=== PATIENT | male | born 1950 | race Caucasian/White ===

== ENCOUNTER → 2016-11-26 | Day surgery (SDC) | payer OTHER ==
[2016-11-16 10:29] VITALS: BMI 32.0
[~2016-11-26] VITALS: Ht 162.6 cm; Wt 86.4 kg
[~2016-11-26] MED LIST: ASPI81TA28 PO; BUME1TAB PO; CLIN300C2 PO; FENTANYL CITRATE INJ 50 MCG/1 ML 2 ML VIAL ONE; FLEC150T PO; LIDOCAINE HCL 2% 2 ML VIAL (20MG/ML) ONE; LOSA1TAB38 PO; METO1TAB71 PO; OXYC-57 PO; PANT40TA PO; POTA10CA28 PO; PROPOFOL IV EMULSION 10 MG/ML 20 ML VIAL IV ONE; RIVA1TAB4 PO; RXC5 PO; SIMV20TA5 PO
[2016-11-26 13:18] VITALS: Ht 162.6 cm; Wt 86.4 kg
[2016-11-26 13:23] VITALS: TEMP 36.7
--- NOTE | 2016-11-26 13:28 | Endo History and Physical ---
History & Physical Date of Service: Nov 26, 2016. Chief Complaint: Anemia Referring Physician: Dr. Amezcua History of Present Illness For EGD Past Medical History Atrial Fibrillation, Arthritis, High Cholesterol, CHF, Hypertension, Valve Replacement Past Surgical History Hx Cardiac Surgery: Yes (AORTIC VALVE REPLACEMENT) Hx Internal Defibrillator: No Hx Pacemaker: No Hx Abdominal Surgery: No Hx of Implantable Prosthesis: No Hx Post-Op Nausea and Vomiting: No Hx Cancer Surgery: No Hx Thoracic Surgery: No Hx Orthopedic: Yes (LUMBAR FUSION&REVISION L5-S1, LEFT ELBOW SURGERY, LEFT INDEX FINGER SURGERY) Hx Urinary Tract Surgery: Yes (CYSTOSCOPY ) Family History Colon CA Social History Smoking Status: Never Smoker Hx Substance Use: No Hx Alcohol Use: No Allergies Coded Allergies: Amlodipine (Verified Allergy, Unknown, Unknown reaction, 11/26/16) Per PCP records Penicillins (Verified Allergy, Unknown, RASH, 11/16/16) Also had rash reaction with Amoxicillin Lisinopril (Verified Adverse Reaction, Unknown, COUGH, 11/16/16) Current Medications Reported Home Medications Medications Dose Route/Sig Max Daily Dose Days Date Category Dose Instructions Micro-K Ext Rel (Potassium Chloride) 10 Meq Capcr 10 Meq PO DAILY PRN 11/16/16 Reported Bumex (Bumetanide) 1 Mg Tab 1 Mg PO DAILY PRN 11/16/16 Reported Protonix (Pantoprazole Sodium) 40 Mg Tab 40 Mg PO QAM 11/16/16 Reported Flecainide Acetate 150 Mg Tab 1 Tab PO BID 11/16/16 Reported Oxycodone HCl 5 Mg Tab 5-10 Mg PO Q4H PRN 30 02/17/16 Rx Percocet 5MG/325MG (Oxycodone/Acetaminophen) Tab 1-2 Tablets PO Q4H PRN 12/14/15 Reported PAIN Xarelto (Rivaroxaban) 20 Mg Tab 20 Mg PO QAM 12/14/15 Reported Zocor (Simvastatin) 20 Mg Tab 20 Mg PO QPM 12/14/15 Reported Cleocin (Clindamycin Hcl) 300 Mg Cap 600 Mg PO DIRECTED 02/23/14 Reported Toprol-Xl (Metoprolol Succinate) 200 Mg Tabcr 100 Mg PO QAM 02/23/14 Reported Aspirin Ec (Aspirin) 81 Mg Tab 81 Mg PO QAM 02/23/14 Reported Cozaar (Losartan Potassium) 100 Mg Tab 100 Mg PO QAM 01/10/14 Reported Vital Signs Weight (Kilograms): 86.36 Height (Feet): 5 Height (Inches): 4 Date Time Temp Pulse Resp B/P Pulse Ox O2 Delivery O2 Flow Rate FiO2 11/26/16 13:23 36.7 55 20 172/98 100 Room Air Physical Exam General Appearance: WD/WN Respiratory/Chest: Respiratory effort: no dyspnea Cardiovascular: Heart Auscultation: RRR Abdomen: Inspection & Palpation: soft Assessment and Plan Anemia for EGD
--- NOTE | 2016-11-26 13:43 | Discharge Instructions ---
Endoscopy Patient Instructions Date / Procedure(s) Performed Nov 26, 2016. EGD Allergy Information Coded Allergies: Amlodipine (Verified Allergy, Unknown, Unknown reaction, 11/26/16) Per PCP records Penicillins (Verified Allergy, Unknown, RASH, 11/16/16) Also had rash reaction with Amoxicillin Lisinopril (Verified Adverse Reaction, Unknown, COUGH, 11/16/16) Discharge Date / Findings Nov 26, 2016. Haley esophagitis, antral gastritis. Duodenal bx done Medication Instructions Stopped Medication(s): xarelto for 1 week Restart Stopped Medication(s): resume meds Begin Diflucan 100 mg a day for 10 days Provider Instructions Activity Restrictions - No exercising or heavy lifting for 24 hours. - Do not drink alcohol the day of the procedure. - Do not drive a car or operate machinery until the day after the procedure. - Do not make any important decisions or sign important papers in 24 hours after the procedure. Following Day: - Return to full activity which may include returning to work/school. Diet Start your diet with liquids and light foods (jello, soup, juice, toast). Then eat your usual diet if not nauseated. Treatment For Common After Affects For mild abdominal pain, bloating, or excessive gas: - Rest - Eat lightly - Lie on right side Follow-Up Information Follow-up with Dr. Amezcua as scheduled Anesthesia Information What You Should Know You have had a procedure that required some medicine to reduce anxiety and discomfort. This treatment is called moderate sedation. After receiving the treatment, you may be sleepy, but you will be able to breathe on your own. The effects of the treatment may last for several hours. Follow these instructions along with Activity/Diet recommendations noted above: * Do NOT do anything where dizziness or clumsiness would be dangerous. * Rest quietly at home today, then you can be up and about tomorrow. * Have a responsible person stay with you the rest of today. * You may have had an I.V. today. If so, you may take the dressing off later today. Recommendations Call your doctor if: * Trouble breathing * Continuous vomiting for more than 24 hours * Temperature above 101 degrees * Severe abdominal pain or bloating * Pain not relieved by pain medicine ordered * There is increased drainage or redness from any incision * A large amount of rectal bleeding greater than 2-3 tablespoons. (If you had a polyp/s removed or have hemorrhoids, a small amount of blood - from the rectum is to be expected.) * You have any unanswered questions or concerns. IN THE EVENT OF A SERIOUS EMERGENCY, GO TO THE NEAREST EMERGENCY ROOM Your discharge instructions were prepared by provider Amador Tang. Patient Instructions Signature Page Marciano Wisdom Patient (or Guardian) Signature/Date: I have read and understand the instructions given to me by my caregivers. Caregiver/RN/Doctor Signature/Date: The above-named patient and/or guardian has received patient instructions on this date. + Original Patient Signature Page (only) stays with chart. Please make copy for patient.
--- NOTE | 2016-11-26 13:50 | GI REPORT ---
Procedure Date: 11/26/2016 1:30 PM Procedure: Upper GI endoscopy Indications: Iron deficiency anemia Medicines: Fentanyl 50 micrograms IV, Propofol total dose 120 mg IV, Lidocaine 40 mg IV Complications: No immediate complications. Estimated Blood Loss: Estimated blood loss was minimal. Procedure: Pre-Anesthesia Assessment: - Prior to the procedure, a History and Physical was performed, and patient medications, allergies and sensitivities were reviewed. The patient's tolerance of previous anesthesia was reviewed. - The risks and benefits of the procedure and the sedation options and risks were discussed with the patient. All questions were answered and informed consent was obtained. After obtaining informed consent, the endoscope was passed under direct vision. Throughout the procedure, the patient's blood pressure, pulse, and oxygen saturations were monitored continuously. The scope was introduced through the mouth, and advanced to the second part of duodenum. The upper GI endoscopy was accomplished without difficulty. The patient tolerated the procedure well. The upper GI endoscopy was accomplished without difficulty. The patient tolerated the procedure well. Findings: Localized candidiasis was found in the lower third of the esophagus. Cells for cytology were obtained by brushing. Estimated blood loss: none. Patchy mild inflammation characterized by erythema and granularity was found in the prepyloric region of the stomach. The 2nd part of the duodenum was normal. Biopsies were taken with a cold forceps for histology. Impression: - Monilial esophagitis. Cells for cytology obtained. - Gastritis. - Normal 2nd part of the duodenum. Biopsied. Recommendation: - Discharge patient to home (ambulatory). - Diflucan (fluconazole) 100 mg PO daily for 10 days. - Await pathology results. - Return to primary care physician PRN. Amador Tang M.D. Amador Tang MD 11/26/2016 1:50:50 PM This report has been signed electronically. Note Initiated On: 11/26/2016 1:30 PM I attest to the content of the Intraoperative Record and orders documented therein, exceptions below
--- NOTE | 2016-11-26 13:56 | Anesthesiology Progress Note ---
Anesthesia Post Op Note Date & Time Nov 26, 2016 at 13:56 Vital Signs Pain Intensity: 0 Vital Signs Past 12 Hours Date Time Temp Pulse Resp B/P Pulse Ox O2 Delivery O2 Flow Rate FiO2 11/26/16 13:23 36.7 55 20 172/98 100 Room Air Notes Mental Status: alert / awake / arousable, participated in evaluation Pt Amnestic to Procedure: Yes Nausea / Vomiting: adequately controlled Pain: adequately controlled Airway Patency, RR, SpO2: stable & adequate BP & HR: stable & adequate Hydration State: stable & adequate Anesthetic Complications: no major complications apparent
[2016-11-26 14:20] VITALS: BP 114/78; PULSE 50; O2SAT 98
== END | disposition home or self-care (01) ==
LOC: C.GI 12:55
PROVIDERS: ATTEND Internal Medicine Gastroenterology
DX: B37.81 Candidal esophagitis (principal); D50.9 Iron deficiency anemia, unspecified; K29.70 Gastritis, unspecified, without bleeding; I10 Essential (primary) hypertension; I48.91 Unspecified atrial fibrillation; M19.90 Unspecified osteoarthritis, unspecified site; E78.00 Pure hypercholesterolemia, unspecified; I50.9 Heart failure, unspecified; Z95.2 Presence of prosthetic heart valve; Z79.01 Long term (current) use of anticoagulants; Z80.0 Family history of malignant neoplasm of digestive organs

== ENCOUNTER → 2017-01-04 | Outpatient (CLI) | payer OTHER ==
[~2017-01-04] MED LIST changes: -FENTANYL CITRATE INJ 50 MCG/1 ML 2 ML VIAL ONE; -LIDOCAINE HCL 2% 2 ML VIAL (20MG/ML) ONE; -PROPOFOL IV EMULSION 10 MG/ML 20 ML VIAL IV ONE
[2017-01-04 12:39] LABS: BASO % 0.4 %; BASO ABS # 0.02 K/uL (0-0.2); COMPLETE YES; EOS % 2.8 %; HEMATOCRIT 43.7 % (42-52); IG% 0.2 %; LYMPH ABS # 0.87 K/uL (1.2-3.4); MEAN CELL VOLUME 87.8 fL (80-100); MEAN CORPUSCULAR HEMOGLOBIN 28.7 pg (25-34); MEAN CORPUSCULAR HGB CONC 32.7 g/dl (32-36); MEAN PLATELET VOLUME 11.1 fL (7.4-10.4); MONO % 12.8 %; NEUT % 67.8 %; PLATELET COUNT 189 K/uL (130-400); RED BLOOD COUNT 4.98 M/uL (4.7-6.1); WHITE BLOOD COUNT 5.45 K/uL (4.8-10.8)
[2017-01-04 12:46] LABS: BLOOD UREA NITROGEN 16 mg/dl (7-18); BUN/CREATININE RATIO 13.7 (10-20); CALCIUM 9.5 mg/dl (8.5-10.1); CARBON DIOXIDE 31 mmol/L (21-32); CHLORIDE 105 mmol/L (98-107); GLUCOSE 91 mg/dl (70-99); SODIUM 140 mmol/L (136-145)
[2017-01-04 12:51] LABS: PHOSPHORUS 2.9 mg/dl (2.5-4.9); PROSTATE SPECIFIC ANTIGEN 0.969 ng/ml (0.000-4.000)
== END | disposition home or self-care (01) ==
LOC: C.LABBFT 09:30
PROVIDERS: ATTEND Internal Medicine
DX: N40.0 Benign prostatic hyperplasia without lower urinary tract symptoms (principal); D64.9 Anemia, unspecified; N28.9 Disorder of kidney and ureter, unspecified

== ENCOUNTER → 2017-04-03 | Outpatient (CLI) | payer OTHER ==
[~2017-04-03] MED LIST changes: +METO-649 PO; -METO1TAB71 PO
== END | disposition home or self-care (01) ==
LOC: C.LABBFT 07:55
PROVIDERS: ATTEND Internal Medicine Cardiovascular Disease
DX: E78.00 Pure hypercholesterolemia, unspecified (principal); I10 Essential (primary) hypertension

== ENCOUNTER → 2017-07-26 | Outpatient (CLI) | payer OTHER ==
[~2017-07-26] MED LIST changes: -METO-649 PO; +METO1TAB71 PO
[2017-07-26 13:26] LABS: ALT/SGPT 41 U/L (12-78); BLOOD UREA NITROGEN 17 mg/dl (7-18); BUN/CREATININE RATIO 14.4 (10-20); CALCIUM 9.5 mg/dl (8.5-10.1); CARBON DIOXIDE 28 mmol/L (21-32); CHLORIDE 106 mmol/L (98-107); CHOLESTEROL 147 mg/dl (0-200); GLUCOSE 88 mg/dl (70-99); POTASSIUM 4.2 mmol/L (3.5-5.1); SODIUM 139 mmol/L (136-145)
[2017-07-26 13:30] LABS: ALB/GLOB RATIO 1.3 (0.9-2); ALKALINE PHOSPHATASE 75 U/L (45-117); AST/SGOT 26 U/L (15-37); CHOLESTEROL/HDL RATIO 2.1; HDL CHOLESTEROL 71 mg/dl; LDL CHOLESTEROL CALCULATED 62 mg/dl; TRIGLYCERIDES 72 mg/dl (0-150); VERY LOW DENSITY LIPOPROT CALC 14 mg/dl
== END | disposition home or self-care (01) ==
LOC: C.LABBFT 08:39
PROVIDERS: ATTEND Internal Medicine
DX: I48.0 Paroxysmal atrial fibrillation (principal); E78.00 Pure hypercholesterolemia, unspecified

== ENCOUNTER → 2017-08-08 | Outpatient (CLI) | payer OTHER ==
--- NOTE | 2017-08-08 11:52 | DIAGNOSTIC IMAGING REPORT ---
R HIP UNILATERAL 2 VIEWS CLINICAL HISTORY: Right hip and back pain COMPARISON: None. DISCUSSION: No fractures or subluxations are visualized. There are no erosive or destructive changes. Postsurgical changes are present within the lower lumbar spine. The joint space of the right hip appears well-preserved for age. IMPRESSION: Normal right hip for age. Electronically signed by: Jeff Antonio M.D. 08/08/2017 11:50 AM Dictated Date/Time: 08/08/2017 11:49 AM
--- NOTE | 2017-08-08 12:12 | DIAGNOSTIC IMAGING REPORT ---
LUMBAR SPINE 7 VIEWS with flexion and extension HISTORY: R HIP PAIN, LUMBAGO COMPARISON: Lumbar spine CT the 01/13/2008. FINDINGS: There is no fracture. Stable 6 mm of anterolisthesis of L5 on S1. Posterior decompression and fusion at L4-5 with pedicle screws and rods. The hardware appears intact. There are disc spacers at these levels. Mild disc space narrowing at L3-L4 and L2-L3. Alignment remains intact throughout flexion and extension. Small endplate osteophytes within the lumbar spine. IMPRESSION: 1. No fractures within the lumbar spine. 2. Posterior decompression and fusion at L4-5 with pedicle screws and rods. The hardware appears intact. 3. Stable grade I anterolisthesis of L5 on S1. 4. Mild disc space narrowing at L2-L3 and L3-L4 which has progressed. 5. Alignment remains intact throughout flexion and extension. Electronically signed by: Singh Jennings M.D. 08/08/2017 12:10 PM Dictated Date/Time: 08/08/2017 12:07 PM
== END | disposition home or self-care (01) ==
LOC: C.RADBC 10:49
PROVIDERS: ATTEND Physician Assistant
DX: M25.551 Pain in right hip (principal); Z98.1 Arthrodesis status; M43.17 Spondylolisthesis, lumbosacral region; M51.36 Other intervertebral disc degeneration, lumbar region

== ENCOUNTER → 2017-09-23 | Outpatient (CLI) | payer OTHER ==
[~2017-09-23] MED LIST changes: +METO-649 PO; -METO1TAB71 PO; -RXC5 PO
--- NOTE | 2017-09-23 10:46 | DIAGNOSTIC IMAGING REPORT ---
KUB CLINICAL HISTORY: Nephrolithiasis. COMPARISON STUDY: KUB September 20, [address] of the abdomen and pelvis September 13, 2015 PA FINDINGS: Incidental note is made of postoperative findings within the spine. Pelvic calcifications are unchanged and likely reflect phleboliths and vascular calcifications. Numerous bilateral renal calculi are noted, including an 8 mm calculus within the upper pole of the left kidney and a 6 mm left renal calculus. Slight increase in calculus burden is noted since exam of September 20, 2016. The bowel gas pattern is normal. IMPRESSION: 1. Bilateral nephrolithiasis, slightly increased since exam of September 20, 2016. 2. No ureteral calculi identified. Electronically signed by: Ranjan Means M.D. 09/23/2017 10:45 AM Dictated Date/Time: 09/23/2017 10:44 AM
[2017-09-23 11:38] LABS: CHOLESTEROL/HDL RATIO 1.9; PROSTATE SPECIFIC ANTIGEN 0.951 ng/ml (0.000-4.000)
== END | disposition home or self-care (01) ==
LOC: C.RAD 09:26
PROVIDERS: ATTEND Urology
DX: N20.0 Calculus of kidney (principal); N40.0 Benign prostatic hyperplasia without lower urinary tract symptoms; Z12.5 Encounter for screening for malignant neoplasm of prostate; E78.00 Pure hypercholesterolemia, unspecified

== ENCOUNTER → 2017-10-28 | Outpatient (CLI) | payer OTHER ==
[2017-10-28 12:24] LABS: BASO % 0.5 %; BASO ABS # 0.03 K/uL (0-0.2); EOS ABS # 0.28 K/uL (0-0.5); HEMATOCRIT 44.9 % (42-52); HEMOGLOBIN 14.7 g/dL (14.0-18.0); IG# 0.02 K/uL (0.00-0.02); LYMPH % 23.1 %; MEAN CELL VOLUME 91.3 fL (80-100); MEAN CORPUSCULAR HEMOGLOBIN 29.9 pg (25-34); MEAN CORPUSCULAR HGB CONC 32.7 g/dl (32-36); MEAN PLATELET VOLUME 11.2 fL (7.4-10.4); MONO % 9.9 %; MONO ABS # 0.56 K/uL (0.11-0.59); NEUT % 61.1 %; NEUT ABS # 3.44 K/uL (1.4-6.5); PLATELET COUNT 184 K/uL (130-400); RED CELL DISTRIBUTION WIDTH CV 13.5 % (11.5-14.5); RED CELL DISTRIBUTION WIDTH SD 44.5 fL (36.4-46.3); WHITE BLOOD COUNT 5.63 K/uL (4.8-10.8)
== END | disposition home or self-care (01) ==
LOC: C.LABBFT 09:20
PROVIDERS: ATTEND Physician Assistant Medical
DX: D64.9 Anemia, unspecified (principal)

== ENCOUNTER → 2018-01-22 | Outpatient (CLI) | payer OTHER ==
[~2018-01-22] MED LIST changes: -METO-649 PO; +METO100T14 PO; +METO200T32 PO; +METO50TA16 PO
== END | disposition home or self-care (01) ==
LOC: C.LABBFT 07:18
PROVIDERS: ATTEND Internal Medicine
DX: N52.9 Male erectile dysfunction, unspecified (principal)

== ENCOUNTER → 2018-01-28 | Outpatient (CLI) | payer OTHER | END | disposition home or self-care (01) | LOC: C.LABBFT 11:35 | PROVIDERS: ATTEND Internal Medicine | DX: N52.9 Male erectile dysfunction, unspecified (principal) ==

== ENCOUNTER 2022-10-23 10:57 | Inpatient (IN) ==
[2022-10-23] MEDS ORDERED: SODIUM CHLORIDE 0.9% 1000ML 1,000 ML IV SCH (11:30)
[2022-10-23 11:45] LABS: Basophils # (auto) 0.02 K/uL (0-0.2); Basophils % (auto) 0.2 %; Eosinophils # (auto) 0.11 K/uL (0-0.50); Eosinophils % (auto) 0.9 %; Hematocrit (blood only) 23.9 % (40.1-51.0); Hemoglobin 7.5 g/dl (14.0-18.0); Immature Granulocytes # (auto) 0.06 K/uL (0.00-0.02); Immature Granulocytes % (auto) 0.5 %; Lymphocytes # (auto) 0.65 K/uL (1.2-3.4); Lymphocytes % (auto) 5.3 %; Mean Corpuscular Hemoglobin 26.7 pg (25.0-34.0); Mean Corpuscular Hgb Conc 31.4 g/dL (32.0-36.0); Mean Corpuscular Volume 85.1 fL (80.0-100.0); Mean Platelet Volume 9.1 fL (9.4-12.4); Monocytes # (auto) 1.11 K/uL (0.24-0.82); Monocytes % (auto) 9.1 %; Neutrophils # (auto) 10.25 K/uL (1.4-6.5); Nucleated RBC # (auto) 0.02 K/uL (0-0); Nucleated RBC % (auto) 0.2 %; Platelet Count 354 K/uL (130-400); RDW Coefficient of Variation 16.4 % (11.5-14.5); RDW Standard Deviation 50.7 fL (36.4-46.3); Red Blood Count 2.81 M/uL (4.63-6.08)
[2022-10-23] MEDS ORDERED: SODIUM CHLORIDE 0.9% 250 ML IV PRN (11:51)
--- NOTE | 2022-10-23 12:04 | XRay Report ---
XR chest 1V portable HISTORY: 72 years-old Male weakness acute weakness COMPARISON: Chest radiograph 01/06/2019 TECHNIQUE: AP view of the chest FINDINGS: Cardiac silhouette is enlarged. Prior median sternotomy with cardiac valvular prosthesis. No pneumoth orax, large pleural effusion or lobar airspace consolidation. Pulmonary vascular congestion. Chronic right-sided rib fracture deformities. Degenerative changes of the shoulders and spine. IMPRESSION: Cardiomegaly with pulmonary vascular congestion. ACT 112: Negative or not required by law. The above report was generated using voice recognition software. It may contain grammatical, syntax o r spelling errors. Electronically signed by: Gerber Corrales M.D. 10/23/2022 12:02 PM
[2022-10-23 12:15] LABS: Troponin I High Sensitivity 28.1 pg/ml (0-20)
[2022-10-23 12:23] LABS: Albumin Globulin Ratio 1.1 (0.9-2); Albumin Level 3.2 gm/dl (3.4-5.0); BUN Creatinine Ratio 13.2 (10-20); Bilirubin,Total 2.7 mg/dl (0.2-1.0); Calcium 9.4 mg/dl (8.5-10.1); Creatinine Clr Calc Pharmacy 68.3 ml/min; Est GFR (African American) 95.9 ml/min; Est GFR (Non-African American) 82.7 ml/min; Globulin 2.8 gm/dl (2.5-4.0)
[2022-10-23 12:28] LABS: Hypochromasia Present; Polychromasia 1+
--- NOTE | 2022-10-23 12:44 | CT Scan Report ---
CT SCAN OF THE BRAIN WITHOUT IV CONTRAST CLINICAL HISTORY: Falls. COMPARISON STUDY: No priors. TECHNIQUE: Unenhanced axial CT scan of the brain is performed from the vertex to the skull base. A do se lowering technique was utilized adhering to the principles of ALARA. CT DOSE: 788.63 mGycm FINDINGS: Brain parenchyma: Left frontal encephalomalacia is unchanged and consistent with a remote insult. The re is age-related involutional change noting moderate subcortical and periventricular microangiopathi c disease. There is no hemorrhage, mass effect, or evidence of acute territorial ischemia by CT crite so. Henry-white matter differentiation is preserved. No extra-axial fluid collection is seen. Ventricles, sulci, cisterns: Prominent secondary to involutional change. Intracranial vasculature: There is atherosclerotic calcification of the cavernous carotid and vertebr al arteries. Calvarium: The skeletal structures are osteopenic. No depressed calvarial fracture is seen. Sinuses and mastoids: There is trace mucosal thickening within the right maxillary antrum. The remain ing paranasal sinuses are clear. The mastoid air cells are well pneumatized. Orbits: The bony orbits are grossly intact. IMPRESSION: Chronic changes as above with no hemorrhage, mass effect, or evidence of acute territoria l ischemia by CT criteria. ACT 112: Negative or not required by law. Electronically signed by: Ronnie Eisenberg M.D. 10/23/2022 12:42 PM
--- NOTE | 2022-10-23 12:51 | CT Scan Report ---
CT SCAN OF THE CERVICAL SPINE CLINICAL HISTORY: Trauma. Fall. COMPARISON STUDY: No priors. TECHNIQUE: CT scan of the cervical spine is performed from the skull base to the upper thoracic spine . Images are reviewed in the axial, sagittal, and coronal planes. IV contrast was not administered fo r this examination. A dose lowering technique was utilized adhering to the principles of ALARA. CT DOSE: 470.38 mGycm FINDINGS: Skeletal structures: The skeletal structures are osteopenic. There is no evidence of fracture or subl uxation involving the cervical spine. Vertebral body height is maintained. There is minimal anteroli sthesis at C5-C6. Alignment is otherwise preserved. There is straightening of the cervical lordosis. The odontoid process and lateral masses are intact. The atlantoaxial articulation is preserved noting productive degenerative changes. The spinous processes appear intact. There is mild multilevel facet arthropathy. Intervertebral discs: There is only mild degenerative disc space narrowing. Central canal: Grossly patent. Soft tissues: The prevertebral and paraspinous soft tissues are within normal limits. Calvarium: The visualized calvarium at the skull base appears intact. Brain parenchyma: Partially visualized brain parenchyma at the skull base is within normal limits. Sinuses and mastoids: There is trace mucosal thickening within the maxillary antra and the right sphe noid sinus. The mastoid air cells are well pneumatized. Lung apices: Clear as visualized. IMPRESSION: There is no evidence of fracture or subluxation involving cervical spine. ACT 112: Negative or not required by law. Electronically signed by: Ronnie Eisenberg M.D. 10/23/2022 12:50 PM
--- NOTE | 2022-10-23 12:52 | CT Scan Report ---
CT facial bones wo con CLINICAL HISTORY: trauma TECHNIQUE: Multidetector row helical CT of the maxillofacial bones was performed without administrati on of intravenous contrast, and processed with bone and soft tissue algorithms. Coronal and sagittal reformations were obtained. Automated dose lowering techniques and/or adjustment according to patient size were utilized for this exam. CT DOSE: 542.52 mGycm Comparison: None available at the time of this dictation. FINDINGS: Nasal bones are normal. The mandible is intact. The temporomandibular joints are anatomically aligned . Pterygoid plates are intact. Zygomatic arches are intact. The globes are normal and symmetric, without proptosis, obvious disruption or lens dislocation. Ther e is no orbital radiopaque foreign body. The orbital joshua are intact. The retrobulbar fat is without evidence of disruption. Extraocular muscles are normal and symmetric. Optic nerve sheath complexes are normal in course and caliber. Sinus thickening is seen in the maxillary sinus. IMPRESSION: No facial fracture is seen. ACT 112: Negative or not required by law. Electronically signed by: Wilton Esparza M.D. 10/23/2022 12:50 PM
--- NOTE | 2022-10-23 13:16 | Electrocardiogram Report ---
Test Reason : Blood Pressure : / mmHG Vent. Rate : 081 BPM Atrial Rate : 072 BPM P-R Int : 000 ms QRS Dur : 112 ms QT Int : 416 ms P-R-T Axes : 000 079 144 degrees QTc Int : 483 ms Accelerated Junctional rhythm Possible Inferior infarct (cited on or before 06-JAN-2019) Marked ST abnormality, possible lateral subendocardial injury Abnormal ECG When compared with ECG of 06-JAN-2019 10:23, Junctional rhythm has replaced Sinus rhythm Vent. rate has increased BY [address] more depressed Lateral leads T wave inversion now evident in Anterolateral leads Confirmed by Festus Matthew ([id number]) on 10/23/2022 1:15:49 PM Referred By: [facility] Confirmed By:Festus Matthew
[2022-10-23 14:03] LABS: Appearance Urine Clear (Clear); Bacteria Urine Automated 1+ (Negative); Blood Urine Negative (Negative); Color Urine Orange; Epithelial Cell Urine Auto 20-30 /lpf (0-5); Glucose Urine UA 2+ (Negative); Ketones Urine Trace (Negative); Leukocyte Esterase Urine Trace (Negative); Nitrite Urine Positive (Negative); Protein Urine 1+ (Negative); Specific Gravity Urine 1.022 (1.000-1.030); Urobilinogen Urine Positive (Negative)
[2022-10-23 14:05] LABS: Bilirubin Urine 1+ (Negative)
--- NOTE | 2022-10-23 14:27 | History & Physical Report ---
Date of Service October 23, 2022 Assessment & Plan (1) GIB (gastrointestinal bleeding): Plan: - Patient without any obvious blood in stool or black, tarry stools however was heme positive in ED. - Hgb 13 in May, now 7.5. - Does have a history of iron deficiency anemia, previously seen by heme/onc. - Blood products ordered for transfusion, IV diuretic to be given with each unit as patient is already showing evidence of pulmonary congestion on CXR. - Iron studies added onto labs. - May be either an upper or lower GI bleed with his history of cirrhosis and a possible bleed seen on EGD in 2019 presumed to be an AVM, also has had several colon polyps removed, family history of colon cancer in his mother. - Given his diagnosis of cirrhosis, he had had a recent EGD and colonoscopy last month, EGD unremarkable, colonoscopy significant for 3 noncancerous polyps removed. Did initially have some patient procedure bleeding over the first few days, likely due to hemorrhoids and Xarelto use, however this had subsided. - Last Xarelto dose this AM. - Start patient on PPI drip. - We will consult GI, appreciate their recommendations. - 1g TXA ordered. (2) Urinary tract infection: Plan: - WBC 12, UA with 1+ bacteria, nitrites, 10-30 WBCs. - Not complaining of urinary symptoms but suspect his confusion/hallucinations may be his presenting symptoms. (3) Encephalopathy: Plan: - Suspect may be a combination of UTI and medication induced encephalopathy, as patient notes a correlation of visual, auditory hallucinations with the increase of bupropion from 150 mg to 300 mg. - His AST and T bili are mildly elevated from baseline, however ammonia is 27, negative asterixis, do not think this is hepatic encephalopathy. - Head CT without hemorrhage, territorial infarct, or mass/midline shift. - We will hold his bupropion, blood transfusion as above, Rocephin for UTI, monitor for improvement. Currently, patient is AAO x3, able to verbalize that he knows his hallucinations are not real. (4) Lumbar compression fracture: Plan: - Several falls over the past few days. - Lumbar XR: There is an acute appearing compression deformity of the L1 vertebral body, new from prior exam in 2018. No radiographic evidence of significant retropulsion or involvement of posterior elements, however this is better evaluated by CT. - Imaging otherwise negative for acute fractures or other injury. - Lidocaine patches, calcitonin spray, home [place] continued for pain relief. - PT/OT to evaluate and treat. (5) Cirrhosis: Plan: - [place] to be alcohol related, patient has not drank in many years. - Has close follow-up with GI, recently had EGD ditch did not reveal any varices, colonoscopy with several polyps removed. - Due for AFP, liver U/S December. - Tylenol 2 g maximum per day. - On admission: T bili 2.7, AST 43, ammonia 27. Creatinine 0.91, sodium 135, INR pending, 1.3 when last checked one year ago. (6) Depression: Plan: - Patient has history of depression, anxiety and irritability along with PTSD as he is a and served in [place]. He has been having increased flashbacks over the past several months. - Patient has recently had his Cymbalta increased from 30 to 60 mg and bupropion increased 150mg to 300 mg, onset of hallucinations occurred with the bupropion dose change. - Continue Cymbalta, however hold his bupropion for now. - Hallucinations are both visual and auditory, they are nonviolent. Patient denies any suicidal homicidal ideation. (7) Atrial fibrillation with rapid ventricular response: Plan: - History of, remains on flecainide, metoprolol, and Xarelto. Xarelto will be held given suspected lower versus upper GI bleed. (8) CAD (coronary artery disease): Plan: - Has a history of nonobstructive coronary artery disease with luminal irregularities noted in January 2011 and valvular heart disease with bioprosthetic AVR in January 2011. - Has been exercising without chest pain, palpitations, shortness of breath over the last several months, which remains unchanged today. - Echo February 2022: Left ventricular size, wall motion, systolic function. Mild LVH, EF 50 to 55%, well-seated prosthetic aortic valve, mild MR. - Hold baby aspirin due to concerns for GI bleed; otherwise continue metoprolol, Bumex, Farxiga, statin therapy. - Troponin is mildly elevated at 28.1, patient without chest pain, palpitations, shortness of breath. - We will trend troponin overnight, suspicion for ACS. (9) Gastroesophageal reflux disease: Plan: - Patient on Protonix drip for concern for UGI bleed as above. (10) Hyperlipidemia: Plan: - Continue statin therapy. (11) Hypertension: Plan: - Continue metoprolol. (12) Chronic kidney disease: Plan: - Cr 0.91, renal function at/near baseline. - Avoid nephrotoxins, renally dose medications as able. Plan - Admit to PCU. - SCDs DVT prophylaxis, no chemoprophylaxis due to concern for GI bleed. - Full code. History of Present Illness Chief Complaint: Frequent falls, hallucinations over the past 2 weeks Primary Care Provider: Kevin Amezcua MD Marciano Vu is a 72-year-old male with a past medical history significant for alcohol cirrhosis, atrial fibrillation, CAD, hyperlipidemia, hypertension, CKD, secondary hyperparathyroidism, GERD, and BPH who is presenting today at the referral of his PCP due to confusion and falls at home. Patient reports that over the past couple weeks he has been hearing and seeing people in his home and interacting with him, although his has been telling him that people are not real. He is also had more falls over the past week, which is unusual for him. He is not complaining of any pain from the falls at the moment. He notes that the hallucinations started shortly after his bupropion dose was increased. Review of his chart reveals that his bupropion was increased from walking 50 mg daily to 20 mg daily on September 10 of this year. Other than the hallucinations and falls, patient has felt well over the past several weeks, he has had some fatigue, mild abdominal pain and has hemorrhoids that bleed on occasion, particularly after his colonoscopy 1 month ago, otherwise has not had any fever/chills, nausea, vomiting, persistent abdominal pain, black tarry stools or persistent bright red blood in or around his stools. Does have a history of cirrhosis which seems to be attributed to alcohol, patient has not consumed alcohol in several years. He follows with gastroenterology regularly for cirrhosis, recently had EGD and colonoscopy 1 month ago, negative for esophageal varices and had several colon polyps removed. He did have some postprocedure rectal bleeding which he attributes to doing Xarelto, resolved after several days. In the ED, his vital signs have been within normal limits and stable. He is still heme positive. Labs are notable for Hgb of 7.5, significantly decreased from 13.3 several months ago. Also w/ WBC 12, UA positive for nitrates, trace l eukoesterase, 1030 WBCs, 1+ bacteria with 2030 epithelial cells. , T bili 2.7, AST 43, alk phos 175. ALT and ammonia within normal limits. Troponin 28.1, no electrolyte abnormalities, renal function at baseline. COVID-negative. Allergies Allergy/AdvReac Type Severity Reaction Status Date / Time amoxicillin Allergy Mild Rash Verified 10/10/22 14:07 Penicillins Allergy Mild RASH Verified 10/10/22 14:07 amlodipine AdvReac Mild COUGHING Verified 10/10/22 14:07 lisinopril AdvReac Mild COUGH Verified 10/10/22 14:07 Home Medications Medication Instructions Recorded Confirmed Type aspirin 81 mg tablet,delayed 81 mg PO QAM 07/11/18 10/23/22 History release (Adult Aspirin Regimen) cholecalciferol (vitamin D3) 25 1,000 units PO QAM 09/29/19 10/23/22 History mcg (1,000 unit) chewable tablet clindamycin HCl 300 mg capsule 600 mg PO UD PRN dental work 10/25/20 10/23/22 History (Cleocin HCl) bumetanide 1 mg tablet 1 mg PO QPM #90 tabs 11/07/21 10/23/22 Rx pantoprazole 40 mg tablet,delayed 40 mg PO QPM #90 tabs 05/21/22 10/23/22 Rx release simvastatin 20 mg tablet (Zocor) 20 mg PO HS #90 tabs 06/18/22 10/23/22 Rx duloxetine 60 mg capsule,delayed 60 mg PO DAILY lumbar 06/19/22 10/23/22 Rx release radiculopathy #30 caps metoprolol succinate 100 mg 100 mg PO BID #180 tabs 07/16/22 10/23/22 Rx tablet,extended release 24 hr potassium chloride 10 mEq 10 meq PO QPM #90 caps 08/30/22 10/23/22 Rx capsule,extended release bupropion HCl 300 mg 24 hr tablet, 300 mg PO QAM #90 tabs 09/26/22 10/23/22 Rx extended release oxycodone-acetaminophen 7.5 mg-325 1 tab PO Q6H PRN pain #120 tabs 10/09/22 10/23/22 Rx mg tablet dapagliflozin 10 mg tablet 10 mg PO DAILY 10/23/22 10/23/22 History (Farxiga) flecainide 150 mg tablet 150 mg PO Q12 10/23/22 10/23/22 History rivaroxaban 20 mg tablet (Xarelto) 20 mg PO DAILY 10/23/22 10/23/22 History Past Med/Surg History Medical History Anxiety Aortic valve disease S/P BIOPROSTETHIC AVR (2010) Atrial fibrillation PAROXYSMAL- FOLLOWS DR RANDLE LAST VISIT 5-6 MOS AGO Bradycardia CHRONIC; ASYMPTOMATIC ON BETA JEMAL Chronic back pain OCCASIONAL RIGHT SIDED Chronic kidney disease BASELINE CREATININE 1.5-1.6 Gastroesophageal reflux disease CONTROLLED Hx of basal cell carcinoma CHEEK AND FOREHEAD Hyperlipidemia Hypertension Non-occlusive coronary artery disease Osteoarthritis PTSD (post-traumatic stress disorder) Surgical History H/O [place]IC [place]2010[place] [facility] [place] of colonoscopy History of esophagogastroduodenoscopy (EGD) History of lumbar spinal fusion Family History Mother Family hx of colon cancer Colorectal cancer Father Alcohol abuse Brother Alcohol abuse Other No family history of adverse response to anesthesia Denies family history of Ovarian cancer Prostate cancer Coronary heart disease Crohn's disease Breast cancer Lung cancer Ulcerative colitis Social History Smoking Status: Never smoker Tobacco Type: Cigarettes Age Started Using Tobacco: 17; Age Quit Using Tobacco: 18; packs per day: 0.25; Cigarettes Per Day: smoked only when he was in the [employer], states he "did not smoke much"; Second Hand Exposure: No; Hx Alcohol Use: No Hx Substance Use: No Preferred Language: Bahamian Communication Ability: Effective Visual Impairment: No Limitations Hearing Ability: Use of Hearing Aid Oil Expert Required: No Beliefs That Will Affect Care: None marital status: Current Living Situation: Spouse current occupational status: retired 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 Feels Safe at Home: Yes Safety Concerns: Feels Safe At This Time Childhood Exposure to Second-Hand Smoke: No Dental Care, Regularly: Yes Physical Activity Frequency: Does not Exercise Seatbelt Use: always Sunscreen Use: Yes Assistive Devices: Cane Review of Systems Review of Systems: Constitutional: Ongoing fatigue time several months; no fever/chills, weakness,myalgias, anorexia, night sweats Eyes: No diplopia, no worsening or blurred vision ENT: normal hearing, no trouble swallowing Respiratory: No cough, sputum, dyspnea at rest or on exertion Cardiovascular: No chest pain, tightness or palpitations Abdomen: No pain, nausea, vomiting, diarrhea or constipation : Denies dysuria, hematuria, increased urgency/frequency, urinary retention Musculoskeletal: No joint pain, calf pain, swelling Neurologic: No weakness, numbness/tingling, or balance problems Psychiatric: Nonviolent visual and auditory hallucinations of men in his home, denies SI/HI Skin: No rash or itch Physical Exam Physical Exam: General: awake, alert, no apparent distress Head: Normocephalic, atraumatic ENT: PERRL, EOMI, no pharyngeal exudate, mucous membranes moist Chest: Clear to auscultation, on room air, no adventitious breath sounds Cardiac: Regular rate and rhythm, no murmur, no JVD, normal peripheral pulses, good capillary refill Abdominal: NABS x 4 quadrants, soft, nontender to palpation, no rebound, guarding or tenderness Extremities: Normal inspection, no peripheral edema or erythema, calfs nontender to palpation Psych: Normal mood and affect Neuro: AAO x 3, strength intact bilaterally and rated 5/5, no motor deficits, speech is clear, no peripheral sensory deficits Skin: no rash or erythema Results & Data Results & Data ([facility]) Vital Signs (Past 12 Hours) Vital Signs Temp Pulse Pulse Resp BP BP Pulse Ox 10/23/22 13:33 82 18 152/86 H 97 10/23/22 12:19 82 18 100 10/23/22 12:19 81 20 146/81 H 100 10/23/22 11:00 36.4 C L 83 16 129/69 95 O2 Del Method 10/23/22 13:33 Room Air 10/23/22 12:19 Room Air 10/23/22 12:19 Room Air 10/23/22 11:00 Room Air Laboratory Results Abnormal lab results 10/23/22 10/23/2210/23/23 Range/Units 11:24 11:24 12:01 WBC 12.20 H (4.8-10.8) K/ul RBC 2.81 L (4.63-6.08) M/uL Hgb 7.5 L (14.0-18.0) g/dl Hct 23.9 L (40.1-51.0) % MCHC 31.4 L (32.0-36.0) g/dL RDW Std Deviation 50.7 H (36.4-46.3) fL RDW Coeff of Sotero 16.4 H (11.5-14.5) % MPV 9.1 L (9.4-12.4) fL Neut # (Auto) 10.25 H (1.4-6.5) K/uL Lymph # (Auto) 0.65 L (1.2-3.4) K/uL Andrew # (Auto) 1.11 H (0.24-0.82) K/uL Immature Gran # (Auto) 0.06 H (0.00-0.02) K/uL Absolute Nucleated RBC 0.02 H (0-0) K/uL Sodium 135 L (136-145) mmol/L Glucose 110 H (70-99(Fasting)) mg/dl Total Bilirubin 2.7 H (0.2-1.0) mg/dl AST 43 H (13-39) U/L Alkaline Phosphatase 175 H (34-104) U/L Troponin I High Sens 28.1 H (0-20) pg/ml Albumin 3.2 L (3.4-5.0) gm/dl Urine Protein (Negative) Urine Glucose (UA) (Negative) Urine Ketones (Negative) Urine Nitrite (Negative) Urine Bilirubin (Negative) Urine Urobilinogen (Negative) Ur Leukocyte Esterase (Negative) Urine WBC (Auto) (0-5) /hpf Urine RBC (Auto) (0-4) /hpf U Epithel Cells (Auto) (0-5) /lpf Urine Bacteria (Auto) (Negative) Antibody Screen POSITIVE A Crossmatch See Detail 10/23/22 Range/Units 13:40 WBC (4.8-10.8) K/ul RBC (4.63-6.08) M/uL Hgb (14.0-18.0) g/dl Hct (40.1-51.0) % MCHC (32.0-36.0) g/dL RDW Std Deviation (36.4-46.3) fL RDW Coeff of Sotero (11.5-14.5) % MPV (9.4-12.4) fL Neut # (Auto) (1.4-6.5) K/uL Lymph # (Auto) (1.2-3.4) K/uL Andrew # (Auto) (0.24-0.82) K/uL Immature Gran # (Auto) (0.00-0.02) K/uL Absolute Nucleated RBC (0-0) K/uL Sodium (136-145) mmol/L Glucose (70-99(Fasting)) mg/dl Total Bilirubin (0.2-1.0) mg/dl AST (13-39) U/L Alkaline Phosphatase (34-104) U/L Troponin I High Sens (0-20) pg/ml Albumin (3.4-5.0) gm/dl Urine Protein 1+ H (Negative) Urine Glucose (UA) 2+ H (Negative) Urine Ketones Trace H (Negative) Urine Nitrite Positive A (Negative) Urine Bilirubin 1+ H (Negative) Urine Urobilinogen Positive H (Negative) Ur Leukocyte Esterase Trace H (Negative) Urine WBC (Auto) 10-30 H (0-5) /hpf Urine RBC (Auto) 5-10 H (0-4) /hpf U Epithel Cells (Auto) 20-30 H (0-5) /lpf Urine Bacteria (Auto) 1+ H (Negative) Antibody Screen Crossmatch Diagnostic Findings Head CT 10/23/22 11:27 CT SCAN OF THE BRAIN WITHOUT IV CONTRAST CLINICAL HISTORY: Falls. COMPARISON STUDY: No priors. TECHNIQUE: Unenhanced axial CT scan of the brain is performed from the vertex to the skull base. A dose lowering technique was utilized adhering to the principles of ALARA. CT DOSE: 788.63 mGycm FINDINGS: Brain parenchyma: Left frontal encephalomalacia is unchanged and consistent with a remote insult. There is age-related involutional change noting moderate subcortical and periventricular microangiopathic disease. There is no hemorrhage, mass effect, or evidence of acute territorial ischemia by CT criteria. Henry-white matter differentiation is preserved. No extra-axial fluid collection is seen. Ventricles, sulci, cisterns: Prominent secondary to involutional change. Intracranial vasculature: There is atherosclerotic calcification of the cavernous carotid and vertebral arteries. Calvarium: The skeletal structures are osteopenic. No depressed calvarial fracture is seen. Sinuses and mastoids: There is trace mucosal thickening within the right maxillary antrum. The remaining paranasal sinuses are clear. The mastoid air cells are well pneumatized. Orbits: The bony orbits are grossly intact. IMPRESSION: Chronic changes as above with no hemorrhage, mass effect, or evidence of acute territorial ischemia by CT criteria. ACT 112: Negative or not required by law. Electronically signed by: Ronnie Eisenberg M.D. 10/23/2022 12:[address] 10/23/22 11:29 CT SCAN OF THE CERVICAL SPINE CLINICAL HISTORY: Trauma. Fall. COMPARISON STUDY: No priors. TECHNIQUE: CT scan of the cervical spine is performed from the skull base to the upper thoracic spine. Images are reviewed in the axial, sagittal, and coronal planes. IV contrast was not administered for this examination. A dose lowering technique was utilized adhering to the principles of ALARA. CT DOSE: 470.38 mGycm FINDINGS: Skeletal structures: The skeletal structures are osteopenic. There is no evidence of fracture or subluxation involving the cervical spine. Vertebral body height is maintained. There is minimal anterolisthesis at C5-C6. Alignment is otherwise preserved. There is straightening of the cervical lordosis. The odontoid process and lateral masses are intact. The atlantoaxial articulation is preserved noting productive degenerative changes. The spinous processes appear intact. There is mild multilevel facet arthropathy. Intervertebral discs: There is only mild degenerative disc space narrowing. Central canal: Grossly patent. Soft tissues: The prevertebral and paraspinous soft tissues are within normal limits. Calvarium: The visualized calvarium at the skull base appears intact. Brain parenchyma: Partially visualized brain parenchyma at the skull base is within normal limits. Sinuses and mastoids: There is trace mucosal thickening within the maxillary antra and the right sphenoid sinus. The mastoid air cells are well pneumatized. Lung apices: Clear as visualized. IMPRESSION: There is no evidence of fracture or subluxation involving cervical spine. ACT 112: Negative or not required by law. Electronically signed by: Ronnie Eisenberg M.D. 10/23/2022 12:50 PM Chest X-Ray 10/23/22 11:29 XR chest 1V portable HISTORY: 72 years-old Male weakness acute weakness COMPARISON: Chest radiograph 01/06/2019 TECHNIQUE: AP view of the chest FINDINGS: Cardiac silhouette is enlarged. Prior median sternotomy with cardiac valvular prosthesis. No pneumothorax, large pleural effusion or lobar airspace consolidation. Pulmonary vascular congestion. Chronic right-sided rib fracture deformities. Degenerative changes of the shoulders and spine. IMPRESSION: Cardiomegaly with pulmonary vascular congestion. ACT 112: Negative or not required by law. The above report was generated using voice recognition software. It may contain grammatical, syntax or spelling errors. Electronically signed by: Gerber Corrales M.D. 10/23/2022 12:[address] 10/23/22 11:29 CT facial bones wo con CLINICAL HISTORY: trauma TECHNIQUE: Multidetector row helical CT of the maxillofacial bones was performed without administration of intravenous contrast, and processed with bone and soft tissue algorithms. Coronal and sagittal reformations were obtained. Automated dose lowering techniques and/or adjustment according to patient size were utilized for this exam. CT DOSE: 542.52 mGycm Comparison: None available at the time of this dictation. FINDINGS: Nasal bones are normal. The mandible is intact. The temporomandibular joints are anatomically aligned. Pterygoid plates are intact. Zygomatic arches are intact. The globes are normal and symmetric, without proptosis, obvious disruption or lens dislocation. There is no orbital radiopaque foreign body. The orbital joshua are intact. The retrobulbar fat is without evidence of disruption. Extraocular muscles are normal and symmetric. Optic nerve sheath complexes are normal in course and caliber. Sinus thickening is seen in the maxillary sinus. IMPRESSION: No facial fracture is seen. ACT 112: Negative or not required by law. Electronically signed by: Wilton Esparza M.D. 10/23/2022 12:50 PM Lumbar Spine X-Ray 10/23/22 12:37 XR lumbar spine 2-3V CLINICAL HISTORY: falls, pain TECHNIQUE: 3 views of the lumbar spine were obtained. Comparison: Comparison is made to lumbar spine radiographs 08/08/2017 and MRI lumbar spine 07/21/2018 FINDINGS: Posterior decompression and fusion is again seen at L4-L5. Compression deformity of the L1 vertebral body is seen, favored to be acute. Multilevel degenerative changes are seen. The alignment is normal. Vascular calcifications are noted. IMPRESSION: There is an acute appearing compression deformity of the L1 vertebral body, new from prior exam in 2018. No radiographic evidence of significant retropulsion or involvement of posterior elements, however this is better evaluated by CT. ACT 112: Negative or not required by law. Electronically signed by: Wilton Esparza M.D. 10/23/2022 4:01 PM Thoracic Spine X-Ray 10/23/22 12:37 THORACIC SPINE 3 VIEWS: CLINICAL HISTORY: Fall. Thoracic back pain. FINDINGS: AP, lateral, and swimmer's views of the thoracic spine are correlated with abdominal CT dated 02/27/2019. The skeletal structures are osteopenic. There are age-indeterminate superior endplate compression deformities of T11 and L1. These are new from the 02/27/[address] Vertebral body height is otherwise maintained throughout the thoracic spine. Alignment is preserved. Anterior osteophytes are seen throughout. The transverse processes and pedicles are grossly intact as seen on the frontal view. There is minimal degenerative disc space narrowing. The heart is enlarged. The patient is status post midline sternotomy and aortic valve surgery. The imaged lung parenchyma appears clear. IMPRESSION: 1. There are age-indeterminate compression deformities of T11 and L1 which are new from the 02/27/[address] Correlate for point tenderness. 2. Vertebral body height is otherwise maintained throughout the thoracic spine. 3. Osteopenia and mild degenerative change as above. Dictated: 10/23/2022 3:30 PM Transcribed: 10/23/2022 3:47 PM Natalia [id number] [email or web address] Electronically signed by: Ronnie Eisenberg M.D. 10/23/2022 4:02 PM Code Status & VTE Plan Code Status Full code Supervising Physician Co-Signing Physician Notes Patient not seen as she will be transferred to tertiary center. PG Care Time/CCT Total # of Minutes Spent Total Time Spent with Patient: Total time spent is greater than 50% in coordination of care (as documented) at patient's floor/unit and/or counseling patient: Coding Level of Care Code 87486 INT INP/OBS CARE 3/75MIN Diagnoses GIB (gastrointestinal bleeding) K92.2 Urinary tract infection N39.0 Encephalopathy G93.40 Lumbar compression fracture S32.000A Cirrhosis K74.60 Depression F32.A Atrial fibrillation with rapid ventricular response I48.91 CAD (coronary artery disease) I25.10 Gastroesophageal reflux disease K21.9 Hyperlipidemia E78.5 Hypertension I10 Chronic kidney disease N18.9
[2022-10-23] MEDS ORDERED: PANTOprazole 80 MG in DEXTROSE 5% 100 ML IV ONE (14:31)
[2022-10-23] MEDS ORDERED: PANTOPRAZOLE BOLUS/DRIP 1 EACH IV STA (14:31)
[2022-10-23] MEDS ORDERED: PANTOprazole 40 MG in DEXTROSE 5% 100 ML IV SCH (15:00)
--- NOTE | 2022-10-23 16:03 | XRay Report ---
XR lumbar spine 2-3V CLINICAL HISTORY: falls, pain TECHNIQUE: 3 views of the lumbar spine were obtained. Comparison: Comparison is made to lumbar spine radiographs 08/08/2017 and MRI lumbar spine 07/21/2018 FINDINGS: Posterior decompression and fusion is again seen at L4-L5. Compression deformity of the L1 vertebral body is seen, favored to be acute. Multilevel degenerative changes are seen. The alignment is normal. Vascular calcifications are noted. IMPRESSION: There is an acute appearing compression deformity of the L1 vertebral body, new from prior exam in . No radiographic evidence of significant retropulsion or involvement of posterior elements, howeve r this is better evaluated by CT. ACT 112: Negative or not required by law. Electronically signed by: Wilton Esparza M.D. 10/23/2022 4:01 PM
--- NOTE | 2022-10-23 16:03 | XRay Report ---
THORACIC SPINE 3 VIEWS: CLINICAL HISTORY: Fall. Thoracic back pain. FINDINGS: AP, lateral, and swimmer's views of the thoracic spine are correlated with abdominal CT irma ed 02/27/2019. The skeletal structures are osteopenic. There are age-indeterminate superior endplate c ompression deformities of T11 and L1. These are new from the 02/27/[address] Vertebral body h eight is otherwise maintained throughout the thoracic spine. Alignment is preserved. Anterior osteoph ytes are seen throughout. The transverse processes and pedicles are grossly intact as seen on the fro ntal view. There is minimal degenerative disc space narrowing. The heart is enlarged. The patient is status post midline sternotomy and aortic valve surgery. The imaged lung parenchyma appears clear. IMPRESSION: 1. There are age-indeterminate compression deformities of T11 and L1 which are new from the 02/27/[address] Correlate for point tenderness. 2. Vertebral body height is otherwise maintained throughout the thoracic spine. 3. Osteopenia and mild degenerative change as above. Dictated: 10/23/2022 3:30 PM Transcribed: 10/23/2022 3:47 PM Natalia [id number] [email or web address] Electronically signed by: Ronnie Eisenberg M.D. 10/23/2022 4:02 PM
[2022-10-23] MEDS ORDERED: ALUMINUM/MAGNESIUM SUSP 30 ML UDC PO PRN (16:14)
[2022-10-23] MEDS ORDERED: POLYETHYLENE (MIRALAX) 17 GM PACK PO PRN (16:14)
[2022-10-23] MEDS ORDERED: oxyCODONE/APAP 7.5/325MG TAB PO PRN (16:14)
[2022-10-23] MEDS ORDERED: PROTHROMBIN COMP CONC- KCENTRA 2,000 UNITS in SYRINGE 0 ML IV STA (16:26)
[2022-10-23] MEDS ORDERED: TRANEXAMIC ACID / 0.7% NACL 1,000 MG/100 ML BAG IV STA (16:50)
[2022-10-23] MEDS ORDERED: LIDOCAINE 5% 1 PATCH TD STA (16:51)
[2022-10-23] MEDS ORDERED: cefTRIAXone SODIUM 2000MG/70ML D5W IV STA (16:57)
[2022-10-23] MEDS ORDERED: CALCITONIN SALMON NA 200 IU/AC 3.7 ML BTL STA (16:58)
[2022-10-23 18:01] LABS: Ferritin 54.9 ng/ml (8-388)
--- NOTE | 2022-10-23 19:06 | Emergency Department Note ---
Impression & Plan ABLA (acute blood loss anemia), Cirrhosis, Lumbar compression fracture, GIB (gastrointestinal bleeding), Frequent falls ED Provider Note CHIEF COMPLAINT: Frequent falls, weakness and confusion HISTORY OF PRESENT ILLNESS: This 72-year-old male patient with a history of atrial fibrillation on chronic anticoagulation, chronic lumbar back pain on chronic narcotic therapy, cirrhosis of the liver, coronary artery disease and history of GI bleeding presents to the emergency department with complaints of confusion, weakness and frequent falls. Patient's states is been going on for the last several weeks, he has several ecchymotic areas to the extremities and face. She states he "usually falls on his face but has only fallen backwards onto his head once." He has not had any REVIEW OF SYSTEMS: A review of systems was performed with positives and pertinent negatives listed in the history of present illness. 10 systems were reviewed and are otherwise negative. ALLERGIES: see below MEDICATIONS: see below PMH: see below SOCIAL HISTORY: see below DDx: Infection, dehydration, metabolic abnormality, hypo/hyperglycemia, electrolyte disturbance, anemia, hypoxia, cardiac sources, intracerebral event, toxicologic, neurologic, as well as other pathologies. PHYSICAL EXAM: Vital signs reviewed. General: Somewhat ill-appearing 72-year-old male, in no significant distress. HEENT: No scleral icterus, PERRLA, neck supple. Several ecchymotic areas noted to the face, upper extremities. Cardiovascular: Regular rate and rhythm, no extra sounds. Pulmonary: Clear to auscultation bilaterally, normal work of breathing. Abdomen: Soft, nontender, nondistended, positive bowel sounds. Musculoskeletal: Atraumatic, no peripheral edema. neurologic: Patient awake alert and oriented x 3, speech is clear Rectal: Guaiac positive stool. No gross blood, normal mucosa. Skin: Warm, dry, no rash EMERGENCY DEPARTMENT COURSE/MDM: External medical records were reviewed. This patient was evaluated and appeared to be in no significant distress. IV access was obtained and laboratory work was drawn. Patient was placed on the monitor tech and noted to be in a sinus rhythm. EKG reveals some concerning changes but no evidence of ST elevation. CT imaging of the head, face and neck was performed and reveals no evidence of acute intracranial bleed or fracture. Thoracic and lumbar spine films reveal an L1 compression fracture, likely the source of the patient's increased back pain recently. Chest x-ray reveals cardiomegaly with some pulmonary vascular congestion. Patient is noted to be anemic on laboratory work and guaiac positive from the rectum. He was started on a Protonix bolus and drip. He was typed and crossed for 2 units of PRBCs, consented for blood transfusion and it was initiated in the emergency department. The patient's frequent falls are likely due to his polypharmacy and opiate use. Case was discussed with the hospitalist service who will evaluate the patient for admission and further management. MONITORING: An order for cardiac monitoring was placed and the patient is noted to be in a sinus bradycardia with first degree AV block at 57 beats per minute. RADIOLOGY: Head CT to my review reveals no evidence of acute intracranial abnormality, otherwise defer to radiology over read. Chest x-ray to my interpretation reveals poststernotomy changes, cardiomegaly and pulmonary vascular congestion, otherwise referred to radiology's overread. Thoracic and lumbar spine x-rays to my interpretation reveal a compression fx of L1 with postsurgical changes of the low lumbar spine. Otherwise deferred to radiology's overread. Cervical spine CT, face CT per radiology revealed no evidence of acute fracture. EKG: To my interpretation reveals a sinus rhythm 81 bpm. Q waves noted inferiorly. Likely previous inferior infarct. Lateral ST abnormality. QTC is 483. No PVC, no PAC. DISPOSITION: Admission I have personally spent 35 minutes of critical care time in the direct management of this patient. This was a life/limb threatening event. This 35 minutes is in excess of all separately billable procedures. Past Med/Surg History Medical History Anxiety Aortic valve disease S/P BIOPROSTETHIC AVR (2010) Atrial fibrillation PAROXYSMAL- FOLLOWS DR RANDLE LAST VISIT 5-6 MOS AGO Bradycardia CHRONIC; ASYMPTOMATIC ON BETA JEMAL Chronic back pain OCCASIONAL RIGHT SIDED Chronic kidney disease BASELINE CREATININE 1.5-1.6 Gastroesophageal reflux disease CONTROLLED Hx of basal cell carcinoma CHEEK AND FOREHEAD Hyperlipidemia Hypertension Non-occlusive coronary artery disease Osteoarthritis PTSD (post-traumatic stress disorder) Surgical History H/O aortic valve replacement BIOPROSTETHIC AVR (2010) @ [facility] [place] History of colonoscopy History of esophagogastroduodenoscopy (EGD) History of lumbar spinal fusion Family History Mother Family hx of colon cancer Colorectal cancer Father Alcohol abuse Brother Alcohol abuse Other No family history of adverse response to anesthesia Denies family history of Ovarian cancer Prostate cancer Coronary heart disease Crohn's disease Breast cancer Lung cancer Ulcerative colitis Social History Smoking Status: Never smoker Tobacco Type: Cigarettes Age Started Using Tobacco: 17; Age Quit Using Tobacco: 18; packs per day: 0.25; Cigarettes Per Day: smoked only when he was in the [employer], states he "did not smoke much"; Second Hand Exposure: No; Hx Alcohol Use: No Hx Substance Use: No Preferred Language: Kiswahili Communication Ability: Effective Visual Impairment: No Limitations Hearing Ability: Use of Hearing Aid Oil House Attendant Required: No Beliefs That Will Affect Care: Scientologist marital status: Current Living Situation: Spouse current occupational status: retired current occupation: retired from career with [employer] as [employer] Feels Safe at Home: Yes Childhood Exposure to Second-Hand Smoke: No Dental Care, Regularly: Yes Physical Activity Frequency: Does not Exercise Seatbelt Use: always Sunscreen Use: Yes Assistive Devices: Cane Allergies Allergies Allergy/AdvReac Type Severity Reaction Status Date / Time amoxicillin Allergy Mild Rash Verified 10/31/22 10:53 Penicillins Allergy Mild RASH Verified 10/31/22 10:53 amlodipine AdvReac Mild COUGHING Verified 10/31/22 10:53 lisinopril AdvReac Mild COUGH Verified 10/31/22 10:53 Home Meds Home Medications Medication Instructions Recorded Confirmed aspirin 81 mg tablet,delayed 81 mg PO QAM 07/11/18 10/23/22 release (Adult Aspirin Regimen) cholecalciferol (vitamin D3) 25 1,000 units PO QAM 09/29/19 10/23/22 mcg (1,000 unit) chewable tablet dapagliflozin 10 mg tablet 10 mg PO DAILY 10/23/22 10/23/22 (Farxiga) rivaroxaban 20 mg tablet (Xarelto) 20 mg PO DAILY 10/23/22 10/23/22 Previous Rx's Medication Instructions Recorded bumetanide 1 mg tablet 1 mg PO QPM #90 tabs 11/07/21 pantoprazole 40 mg tablet,delayed 40 mg PO QPM #90 tabs 05/21/22 release simvastatin 20 mg tablet (Zocor) 20 mg PO HS #90 tabs 06/18/22 metoprolol succinate 100 mg 100 mg PO BID #180 tabs 07/16/22 tablet,extended release 24 hr potassium chloride 10 mEq 10 meq PO QPM #90 caps 08/30/22 capsule,extended release oxycodone-acetaminophen 7.5 mg-325 1 tab PO Q6H PRN pain #120 tabs 10/09/22 mg tablet acetaminophen 500 mg tablet 1,000 mg PO Q8H PRN fever or pain 10/29/22 (Tylenol Extra Strength) #30 tabs duloxetine 30 mg capsule,delayed 30 mg PO DAILY #30 caps 10/29/22 release lidocaine 5 % topical patch 1 patch transdermal QAM #10 ea 10/29/22 Results & Data (ED) Vital Signs Vital Signs - 24 hr 10/23/22 11:00 10/23/22 12:19 10/23/22 12:19 Temperature 36.4 C L Temperature Source Temporal Artery Scan Pulse Rate 83 82 Pulse Rate [Apical] 81 Respiratory Rate 16 20 18 Respiratory Effort / Characteristics Non-Labored Spontaneous Respiratory Depth Normal Respiratory Pattern Regular Blood Pressure 129/69 Blood Pressure [Right Arm] 146/81 H Blood Pressure Mean 89 Blood Pressure Mean [Right Arm] 102 Blood Pressure Position [Right Arm] Sitting Pulse Oximetry 95 100 100 Oxygen Delivery Method Room Air Room Air Room Air Sepsis Recent Fever Within 48 Hours No Sepsis New/Unexplained Change in Mental Status N/A Sepsis Action Taken by Nursing No Action Required 10/23/22 13:33 Temperature Temperature Source Pulse Rate Pulse Rate [Apical] 82 Respiratory Rate 18 Respiratory Effort / Characteristics Non-Labored Respiratory Depth Normal Respiratory Pattern Regular Blood Pressure Blood Pressure [Right Arm] 152/86 H Blood Pressure Mean Blood Pressure Mean [Right Arm] 108 Blood Pressure Position [Right Arm] Pulse Oximetry 97 Oxygen Delivery Method Room Air Sepsis Recent Fever Within 48 Hours Sepsis New/Unexplained Change in Mental Status Sepsis Action Taken by Long Term Medications Current Medication List: was personally reviewed by me Laboratory Data Attestation: I reviewed the patient's lab results. 10/23/22 11:24 10/23/22 11:24 Lab Results 10/23/22 10/23/22 10/23/22 Range/Units 11:24 11:24 11:24 WBC 12.20 H (4.8-10.8) K/ul RBC 2.81 L (4.63-6.08) M/uL Hgb 7.5 L (14.0-18.0) g/dl Hct 23.9 L (40.1-51.0) % MCV 85.1 (80.0-100.0) fL MCH 26.7 (25.0-34.0) pg MCHC 31.4 L (32.0-36.0) g/dL RDW Std Deviation 50.7 H (36.4-46.3) fL RDW Coeff of [place]ot[place] 16.4 H (11.5-14.5) % Plt Count 354 (130-400) K/uL MPV 9.1 L (9.4-12.4) fL Immature Gran % (Auto) 0.5 % Neut % (Auto) 84.0 % Lymph % (Auto) 5.3 % [place] % (Auto) 9.1 % Eos % (Auto) 0.9 % Baso % (Auto) 0.2 % Neut # (Auto) 10.25 H (1.4-6.5) K/uL Lymph # (Auto) 0.65 L (1.2-3.4) K/uL [place] # (Auto) 1.11 H (0.24-0.82) K/uL Eos # (Auto) 0.11 (0-0.50) K/uL Baso # (Auto) 0.02 (0-0.2) K/uL Immature Gran # (Auto) 0.06 H (0.00-0.02) K/uL Absolute Nucleated RBC 0.02 H (0-0) K/uL Nucleated RBC % (auto) 0.2 % Polychromasia 1+ Hypochromasia Present Sodium 135 L (136-145) mmol/L Potassium 4.0 (3.5-5.1) mmol/L Chloride 101 (98-107) mmol/L Carbon Dioxide 27 (21-32) mmol/L Anion Gap 7 (3-11) BUN 12 (6-23) mg/dl Creatinine 0.91 (0.6-1.4) mg/dl Est Cr Clr Drug Dosing 68.3 ml/min Est GFR ( Amer) 95.9 ml/min Est GFR (Non-Af Amer) 82.7 ml/min BUN/Creatinine Ratio 13.2 (10-20) Glucose 110 H (70-99(Fasting)) mg/dl Calcium 9.4 (8.5-10.1) mg/dl Iron (35-175) mcg/dl TIBC (250-450) mcg/dl Unsaturated IBC (155-355) mcg/dl Transferrin % Sat (20-50) % Ferritin (8-388) ng/ml Total Bilirubin 2.7 H (0.2-1.0) mg/dl AST 43 H (13-39) U/L ALT 35 (7-52) U/L Alkaline Phosphatase 175 H (34-104) U/L Ammonia (18-72) umol/L Troponin I High Sens 28.1 H (0-20) pg/ml Total Protein 6.0 (6.0-8.3) gm/dl Albumin 3.2 L (3.4-5.0) gm/dl Globulin 2.8 (2.5-4.0) gm/dl Albumin/Globulin Ratio 1.1 (0.9-2) TSH 1.999 (0.300-4.500) uIu/ml Urine Color Urine Appearance (Clear) Urine pH (4.5-7.5) Ur Specific [place] (1.000-1.030) Urine Protein (Negative) Urine Glucose (UA) (Negative) Urine Ketones (Negative) Urine Blood (Negative) Urine Nitrite (Negative) Urine Bilirubin (Negative) Urine Urobilinogen (Negative) Ur Leukocyte Esterase (Negative) Urine WBC (Auto) (0-5) /hpf Urine RBC (Auto) (0-4) /hpf U Hyaline Cast (Auto) (0-5) /lpf U Epithel Cells (Auto) (0-5) /lpf Urine Bacteria (Auto) (Negative) SARS-CoV-2, RNA, NAAT (NEGATIVE) Blood Type Antibody Screen Antibody Identification Antibody ID Comment Crossmatch 10/23/22 10/23/22 10/23/22 Range/Units 11:24 12:01 12:01 WBC (4.8-10.8) K/ul RBC (4.63-6.08) M/uL Hgb (14.0-18.0) g/dl Hct (40.1-51.0) % MCV (80.0-100.0) fL MCH (25.0-34.0) pg MCHC (32.0-36.0) g/dL RDW Std Deviation (36.4-46.3) fL RDW Coeff of Sotero (11.5-14.5) % Plt Count (130-400) K/uL MPV (9.4-12.4) fL Immature Gran % (Auto) % Neut % (Auto) % Lymph % (Auto) % [place] % (Auto) % Eos % (Auto) % Baso % (Auto) % Neut # (Auto) (1.4-6.5) K/uL Lymph # (Auto) (1.2-3.4) K/uL [place] # (Auto) (0.24-0.82) K/uL Eos # (Auto) (0-0.50) K/uL Baso # (Auto) (0-0.2) K/uL Immature Gran # (Auto) (0.00-0.02) K/uL Absolute Nucleated RBC (0-0) K/uL Nucleated RBC % (auto) % Polychromasia Hypochromasia Sodium (136-145) mmol/L Potassium (3.5-5.1) mmol/L Chloride (98-107) mmol/L Carbon Dioxide (21-32) mmol/L Anion Gap (3-11) BUN (6-23) mg/dl Creatinine (0.6-1.4) mg/dl Est Cr Clr Drug Dosing ml/min Est GFR ( Amer) ml/min Est GFR (Non-Af Amer) ml/min BUN/Creatinine Ratio (10-20) Glucose (70-99(Fasting)) mg/dl Calcium (8.5-10.1) mg/dl Iron 14 L (35-175) mcg/dl TIBC 302 (250-450) mcg/dl Unsaturated IBC 288 (155-355) mcg/dl Transferrin % Sat 5 L (20-50) % Ferritin 54.9 (8-388) ng/ml Total Bilirubin (0.2-1.0) mg/dl AST (13-39) U/L ALT (7-52) U/L Alkaline Phosphatase (34-104) U/L Ammonia 27.0 (18-72) umol/L Troponin I High Sens (0-20) pg/ml Total Protein (6.0-8.3) gm/dl Albumin (3.4-5.0) gm/dl Globulin (2.5-4.0) gm/dl Albumin/Globulin Ratio (0.9-2) TSH (0.300-4.500) uIu/ml Urine Color Urine Appearance (Clear) Urine pH (4.5-7.5) Ur Specific [place] (1.000-1.030) Urine Protein (Negative) Urine Glucose (UA) (Negative) Urine Ketones (Negative) Urine Blood (Negative) Urine Nitrite (Negative) Urine Bilirubin (Negative) Urine Urobilinogen (Negative) Ur Leukocyte Esterase (Negative) Urine WBC (Auto) (0-5) /hpf Urine RBC (Auto) (0-4) /hpf U Hyaline Cast (Auto) (0-5) /lpf U Epithel Cells (Auto) (0-5) /lpf Urine Bacteria (Auto) (Negative) SARS-CoV-2, RNA, NAAT (NEGATIVE) Blood Type O Positive Antibody Screen POSITIVE A Antibody Identification Anti-e Antibody ID Comment Crossmatch See Detail 10/23/22 10/23/22 Range/Units 12:17 13:40 WBC (4.8-10.8) K/ul RBC (4.63-6.08) M/uL Hgb (14.0-18.0) g/dl Hct (40.1-51.0) % MCV (80.0-100.0) fL MCH (25.0-34.0) pg MCHC (32.0-36.0) g/dL RDW Std Deviation (36.4-46.3) fL RDW Coeff of Sotero (11.5-14.5) % Plt Count (130-400) K/uL MPV (9.4-12.4) fL Immature Gran % (Auto) % Neut % (Auto) % Lymph % (Auto) % [place] % (Auto) % Eos % (Auto) % Baso % (Auto) % Neut # (Auto) (1.4-6.5) K/uL Lymph # (Auto) (1.2-3.4) K/uL [place] # (Auto) (0.24-0.82) K/uL Eos # (Auto) (0-0.50) K/uL Baso # (Auto) (0-0.2) K/uL Immature Gran # (Auto) (0.00-0.02) K/uL Absolute Nucleated RBC (0-0) K/uL Nucleated RBC % (auto) % Polychromasia Hypochromasia Sodium (136-145) mmol/L Potassium (3.5-5.1) mmol/L Chloride (98-107) mmol/L Carbon Dioxide (21-32) mmol/L Anion Gap (3-11) BUN (6-23) mg/dl Creatinine (0.6-1.4) mg/dl Est Cr Clr Drug Dosing ml/min Est GFR ( Amer) ml/min Est GFR (Non-Af Amer) ml/min BUN/Creatinine Ratio (10-20) Glucose (70-99(Fasting)) mg/dl Calcium (8.5-10.1) mg/dl Iron (35-175) mcg/dl TIBC (250-450) mcg/dl Unsaturated IBC (155-355) mcg/dl Transferrin % Sat (20-50) % Ferritin (8-388) ng/ml Total Bilirubin (0.2-1.0) mg/dl AST (13-39) U/L ALT (7-52) U/L Alkaline Phosphatase (34-104) U/L Ammonia (18-72) umol/L Troponin I High Sens (0-20) pg/ml Total Protein (6.0-8.3) gm/dl Albumin (3.4-5.0) gm/dl Globulin (2.5-4.0) gm/dl Albumin/Globulin Ratio (0.9-2) TSH (0.300-4.500) uIu/ml Urine Color [place] Urine Appearance Clear (Clear) Urine pH 6.0 (4.5-7.5) Ur Specific [place] 1.022 (1.000-1.030) Urine Protein 1+ H (Negative) Urine Glucose (UA) 2+ H (Negative) Urine Ketones Trace H (Negative) Urine Blood Negative (Negative) Urine Nitrite Positive A (Negative) Urine Bilirubin 1+ H (Negative) Urine Urobilinogen Positive H (Negative) Ur Leukocyte Esterase Trace H (Negative) Urine WBC (Auto) 10-30 H (0-5) /hpf Urine RBC (Auto) 5-10 H (0-4) /hpf U Hyaline Cast (Auto) 1-5 (0-5) /lpf U Epithel Cells (Auto) 20-30 H (0-5) /lpf Urine Bacteria (Auto) 1+ H (Negative) SARS-CoV-2, RNA, NAAT NEGATIVE (NEGATIVE) Blood Type Antibody Screen Antibody Identification Antibody ID Comment Crossmatch Administered Medications Discontinued Medications Acetaminophen (Acetaminophen 500 Mg Tab) 1,000 mg PO Q8H PRN PRN Reason: Pain or Fever Stop: 11/26/22 11:05 Last Admin: 10/29/22 08:23 Dose: 1,000 mg Documented By: Admin: 10/29/22 00:30 Dose: 1,000 mg Documented By: Admin: 10/28/22 15:51 Dose: 1,000 mg Documented By: Admin: 10/28/22 08:15 Dose: 1,000 mg Documented By: Admin: 10/27/22 23:36 Dose: 1,000 mg Documented By: Admin: 10/27/22 16:17 Dose: 1,000 mg Documented By: MARCELLE Bumetanide (Bumetanide 1 Mg Tab) 1 mg PO QPM MARJORIE Stop: 11/22/22 20:59 Last Admin: 10/28/22 20:02 Dose: 1 mg Documented By: Admin: 10/27/22 21:18 Dose: 1 mg Documented By: Admin: 10/26/22 19:58 Dose: 1 mg Documented By: Admin: 10/25/22 21:12 Dose: 1 mg Documented By: Admin: 10/24/22 20:27 Dose: 1 mg Documented By: Admin: 10/23/22 21:00 Dose: 1 mg Documented By: GUNNAR Calcitonin [place] (Calcitonin [place] Na 200 Iu/Ac 3.7 Ml Btl) 1 sprays NA DAILY [facility] Stop: 11/23/22 08:59 Last Admin: 10/29/22 07:43 Dose: 1 sprays Documented By: Admin: 10/28/22 08:19 Dose: 1 sprays Documented By: Admin: 10/27/22 07:41 Dose: 1 sprays Documented By: Admin: 10/26/22 08:32 Dose: 1 sprays Documented By: Admin: 10/25/22 09:21 Dose: 1 sprays Documented By: Admin: 10/24/22 10:07 Dose: 1 sprays Documented By: TEDDYV Calcitonin [place] (Calcitonin [place] Na 200 Iu/Ac 3.7 Ml Btl) 1 sprays NA ONE STA Stop: 10/23/22 16:59 Last Admin: 10/23/22 17:26 Dose: 1 sprays Documented By: AIDEN Ceftriaxone Sodium (Ceftriaxone Sodium 2000mg/70ml D5w) 2,000 mg IV ONE STA Stop: 10/23/22 16:58 Last Admin: 10/23/22 17:26 Dose: 2,000 mg Documented By: AIDEN Celecoxib (Celecoxib 100 Mg Cap) 100 mg PO BID MARJORIE Stop: 11/27/22 20:59 Last Admin: 10/29/22 07:40 Dose: 100 mg Documented By: Admin: 10/28/22 20:03 Dose: 100 mg Documented By: LEO Ciprofloxacin (Ciprofloxacin 500 Mg Tab) 500 mg PO BID MARJORIE Stop: 11/04/22 20:59 Last Admin: 10/26/22 19:58 Dose: 500 mg Documented By: Admin: 10/26/22 08:32 Dose: 500 mg Documented By: Admin: 10/25/22 21:51 Dose: 500 mg Documented By: ITALO Duloxetine HCl (Duloxetine Hcl 60 Mg Cap) 60 mg PO DAILY MARJORIE Stop: 11/23/22 08:59 Last Admin: 10/27/22 07:41 Dose: 60 mg Documented By: Admin: 10/26/22 08:32 Dose: 60 mg Documented By: Admin: 10/25/22 09:20 Dose: 60 mg Documented By: Admin: 10/24/22 09:02 Dose: 60 mg Documented By: QGV Duloxetine HCl (Duloxetine Hcl 30 Mg Cap) 30 mg PO DAILY MARJORIE Stop: 11/27/22 08:59 Last Admin: 10/29/22 07:42 Dose: 30 mg Documented By: Admin: 10/28/22 08:17 Dose: 30 mg Documented By: YANIRA Flecainide Acetate (Flecainide Acetate 100 Mg Tablet) 150 mg PO Q12 MARJORIE Stop: 11/22/22 20:59 Last Admin: 10/26/22 19:59 Dose: 150 mg Documented By: Admin: 10/26/22 08:33 Dose: 150 mg Documented By: Admin: 10/25/22 21:11 Dose: 150 mg Documented By: Admin: 10/25/22 09:21 Dose: 150 mg Documented By: Admin: 10/24/22 20:26 Dose: 150 mg Documented By: Admin: 10/24/22 09:02 Dose: 150 mg Documented By: Admin: 10/23/22 21:01 Dose: 150 mg Documented By: GUNNAR Hydralazine HCl (Hydralazine Hcl 20 Mg/Ml Vial) 10 mg IV Q8 PRN PRN Reason: sbp>185 or dbp>95 Stop: 11/24/22 10:38 Last Admin: 10/25/22 12:11 Dose: 10 mg Documented By: ISAIAH Sodium Chloride (Nss 1000ml) 1,000 mls @ 125 mls/hr IV .Q8H MARJORIE Stop: 10/23/22 19:29 Last Infusion: 10/23/22 20:30 Dose: 0 mls/hr Documented By: Admin: 10/23/22 13:34 Dose: 125 mls/hr Documented By: AIDEN Pantoprazole Sodium 40 mg/ (Dextrose) 100 mls @ 20 mls/hr IV Q5H MARJORIE Stop: 10/24/22 20:00 Last Infusion: 10/24/22 23:43 Dose: 0 mg/hr, 0 mls/hr Documented By: Admin: 10/24/22 18:34 Dose: 8 mg/hr, 20 mls/hr Documented By: MNNat Infusion: 10/24/22 18:34 Dose: 8 mg/hr, 20 mls/hr Documented By: Admin: 10/24/22 14:01 Dose: 8 mg/hr, 20 mls/hr Documented By: Infusion: 10/24/22 14:01 Dose: 8 mg/hr, 20 mls/hr Documented By: Admin: 10/24/22 09:01 Dose: 8 mg/hr, 20 mls/hr Documented By: Infusion: 10/24/22 08:07 Dose: 8 mg/hr, 20 mls/hr Documented By: Admin: 10/24/22 03:07 Dose: 8 mg/hr, 20 mls/hr Documented By: Infusion: 10/24/22 02:49 Dose: 0 mg/hr, 0 mls/hr Documented By: Admin: 10/23/22 21:00 Dose: 8 mg/hr, 20 mls/hr Documented By: GUNNAR Pantoprazole Sodium 80 mg/ (Dextrose) 120 mls @ 400 mls/hr IV NOW ONE Stop: 10/23/22 14:48 Last Infusion: 10/23/22 15:37 Dose: 0 mls/hr Documented By: Admin: 10/23/22 14:56 Dose: 400 mls/hr Documented By: AIDEN Pantoprazole Sodium 40 mg/ (Dextrose) 100 mls @ 20 mls/hr IV Q5H [facility] Stop: 10/23/22 19:59 Last Infusion: 10/23/22 21:12 Dose: 0 mg/hr, 0 mls/hr Documented By: Admin: 10/23/22 15:39 Dose: 8 mg/hr, 20 mls/hr Documented By: AIDEN Prothrombin Complex Concent ( (Human) 2,000 units/ Syringe) 80 mls @ 10 mls/min IV NOW STA Stop: 10/23/22 16:33 Last Admin: 10/23/22 17:35 Dose: Not Given Documented By: AIDEN Tranexamic Acid (Tranexamic Acid / 0.7% Nacl) 1,000 mg in 100 mls @ 600 mls/hr IV NOW STA Stop: 10/23/22 16:59 Last Infusion: 10/23/22 17:54 Dose: 0 mls/hr Documented By: Admin: 10/23/22 17:31 Dose: 600 mls/hr Documented By: AIDEN Lidocaine (Lidocaine 5% 1 Patch) 1 patch TD ONE STA Stop: 10/23/22 16:52 Last Admin: 10/23/22 17:25 Dose: 1 patch Documented By: AIDEN Lidocaine (Lidocaine 5% 1 Patch) 1 patch TD QAM [facility] Stop: 11/24/22 08:59 Last Admin: 10/29/22 07:43 Dose: 1 patch Documented By: Admin: 10/28/22 08:18 Dose: 1 patch Documented By: Admin: 10/27/22 07:40 Dose: 1 patch Documented By: Admin: 10/26/22 08:34 Dose: 1 patch Documented By: Admin: 10/25/22 09:20 Dose: 1 patch Documented By: ISAIAH Metoprolol Succinate (Metoprolol Succ 50mg Ext Rel Tab) 100 mg PO BID MARJORIE Stop: 11/22/22 20:59 Last Admin: 10/29/22 07:41 Dose: 100 mg Documented By: Admin: 10/28/22 20:02 Dose: 100 mg Documented By: Admin: 10/28/22 08:03 Dose: Not Given Documented By: Admin: 10/27/22 21:18 Dose: 100 mg Documented By: Admin: 10/27/22 07:40 Dose: 100 mg Documented By: Admin: 10/26/22 19:57 Dose: 100 mg Documented By: Admin: 10/26/22 08:32 Dose: 100 mg Documented By: Admin: 10/25/22 21:12 Dose: 100 mg Documented By: Admin: 10/25/22 08:07 Dose: 100 mg Documented By: Admin: 10/24/22 20:25 Dose: 100 mg Documented By: Admin: 10/24/22 09:03 Dose: 100 mg Documented By: Admin: 10/23/22 21:02 Dose: 100 mg Documented By: GUNNAR Balderas (Dapagliflozin [Farxiga] 10 Mg Tablet - Order Awaiting Action) 1 each N/A QS [facility] Stop: 11/23/22 00:00 Last Admin: 10/25/22 18:26 Dose: Not Given Documented By: Admin: 10/25/22 09:19 Dose: Not Given Documented By: Admin: 10/25/22 01:31 Dose: Not Given Documented By: Admin: 10/24/22 17:01 Dose: Not Given Documented By: Admin: 10/24/22 10:07 Dose: Not Given Documented By: RobbieGV Admin: 10/24/22 01:49 Dose: Not Given Documented By: ALTON Moreloscellaneous (Remove Lidoderm Patch) 1 each N/A QAM MARJORIE Stop: 11/23/22 05:59 Last Admin: 10/24/22 06:34 Dose: 1 each Documented By: CHRIS Balderas (Remove Lidoderm Patch) 1 each N/A HS [facility] Stop: 11/23/22 20:59 Last Admin: 10/28/22 20:05 Dose: 1 each Documented By: Admin: 10/27/22 21:18 Dose: 1 each Documented By: Admin: 10/26/22 19:58 Dose: 1 each Documented By: Admin: 10/25/22 21:12 Dose: 1 each Documented By: Admin: 10/24/22 20:28 Dose: 1 each Documented By: JAE Nitrofurantoin Macrocrystals (Nitrofurantoin Monohydrate 100 Mg Cap) 100 mg PO BID [facility]; Protocol Stop: 10/29/22 08:59 Last Admin: 10/24/22 20:27 Dose: 100 mg Documented By: JAE Nitrofurantoin Macrocrystals (Nitrofurantoin Monohydrate 100 Mg Cap) 100 mg PO ONE ONE Stop: 10/24/22 10:31 Last Admin: 10/24/22 11:28 Dose: 100 mg Documented By: LADAN Nitrofurantoin Macrocrystals (Nitrofurantoin Monohydrate 100 Mg Cap) 100 mg PO BID [facility] Stop: 11/04/22 08:59 Last Admin: 10/25/22 09:20 Dose: 100 mg Documented By: ISAIAH Nitrofurantoin Macrocrystals (Nitrofurantoin Monohydrate 100 Mg Cap) 100 mg PO BID [facility]; Protocol Stop: 11/01/22 08:59 Last Admin: 10/29/22 07:41 Dose: 100 mg Documented By: Admin: 10/28/22 20:03 Dose: 100 mg Documented By: Admin: 10/28/22 08:16 Dose: 100 mg Documented By: Admin: 10/27/22 21:18 Dose: 100 mg Documented By: Admin: 10/27/22 11:57 Dose: 100 mg Documented By: MARCELLE Farxiga: Non- Formulary Patient's Own Med 1 each PO DAILY [facility] [facility] Stop: 11/25/22 08:59 Last Admin: 10/29/22 07:43 Dose: 1 tabs Documented By: Admin: 10/28/22 08:18 Dose: 1 tabs Documented By: Admin: 10/27/22 07:41 Dose: 1 tabs Documented By: Admin: 10/26/22 08:32 Dose: 1 tabs Documented By: ANTIONETTE Oxycodone/Acetaminophen (Oxycodone/Acetaminophen 5mg/325mg Tab) 1 tab PO Q6H PRN PRN Reason: Moderate/Severe Pain Stop: 11/07/22 20:27 Last Admin: 10/27/22 05:12 Dose: 1 tab Documented By: Admin: 10/26/22 22:29 Dose: 1 tab Documented By: Admin: 10/26/22 08:43 Dose: 1 tab Documented By: Admin: 10/25/22 23:57 Dose: 1 tab Documented By: Admin: 10/25/22 08:07 Dose: 1 tab Documented By: Admin: 10/24/22 21:00 Dose: 1 tab Documented By: JAE Pantoprazole Sodium (Pantoprazole 40 Mg Tab) 40 mg PO BID MARJORIE Stop: 11/23/22 20:59 Last Admin: 10/29/22 07:42 Dose: 40 mg Documented By: Admin: 10/28/22 20:02 Dose: 40 mg Documented By: Admin: 10/28/22 08:17 Dose: 40 mg Documented By: Admin: 10/27/22 21:17 Dose: 40 mg Documented By: Admin: 10/27/22 07:40 Dose: 40 mg Documented By: Admin: 10/26/22 19:57 Dose: 40 mg Documented By: Admin: 10/26/22 08:33 Dose: 40 mg Documented By: Admin: 10/25/22 21:11 Dose: 40 mg Documented By: Admin: 10/25/22 09:20 Dose: 40 mg Documented By: Admin: 10/24/22 20:27 Dose: 40 mg Documented By: JAE Potassium Chloride (Potassium Chloride 10 Meq Tabcr) 10 meq PO QPM MARJORIE Stop: 11/22/22 20:59 Last Admin: 10/28/22 20:01 Dose: 10 meq Documented By: Admin: 10/27/22 21:25 Dose: 10 meq Documented By: Admin: 10/26/22 20:00 Dose: 10 meq Documented By: Admin: 10/25/22 21:10 Dose: 10 meq Documented By: Admin: 10/24/22 20:28 Dose: 10 meq Documented By: Admin: 10/23/22 21:00 Dose: 10 meq Documented By: GUNNAR Simvastatin (Simvastatin 20 Mg Tab) 20 mg PO HS MARJORIE Stop: 11/22/22 20:59 Last Admin: 10/26/22 19:59 Dose: 20 mg Documented By: Admin: 10/25/22 21:13 Dose: 20 mg Documented By: Admin: 10/24/22 20:28 Dose: 20 mg Documented By: Admin: 10/23/22 21:00 Dose: 20 mg Documented By: GUNANR Tramadol HCl (Tramadol Hcl 50 Mg Tablet) 50 mg PO Q4H PRN PRN Reason: Mild Pain Stop: 11/23/22 15:08 Last Admin: 10/24/22 16:00 Dose: 50 mg Documented By: JESSICA Tramadol HCl (Tramadol Hcl 50 Mg Tablet) 50 mg PO NOW STA Stop: 10/24/22 17:50 Last Admin: 10/24/22 17:49 Dose: 50 mg Documented By: JESSICA Tramadol HCl (Tramadol Hcl 50 Mg Tablet) 100 mg PO Q6H PRN PRN Reason: Mild Pain Stop: 11/23/22 15:08 Last Admin: 10/26/22 11:01 Dose: 100 mg Documented By: Admin: 10/25/22 13:11 Dose: 100 mg Documented By: ISAIAH Tramadol HCl (Tramadol Hcl 50 Mg Tablet) 50 mg PO ONCE ONE Stop: 10/29/22 03:30 Last Admin: 10/29/22 03:37 Dose: 50 mg Documented By: LEO Vitamin D (Cholecalciferol 1,000 Units 25 Mcg Tab) [facility] [place] Stop: 11/23/22 08:59 Last Admin: 10/29/22 07:42 Dose: 1,000 units Documented By: Admin: 10/28/22 08:17 Dose: 1,000 units Documented By: Admin: 10/27/22 07:40 Dose: 1,000 units Documented By: Admin: 10/26/22 08:32 Dose: 1,000 units Documented By: Admin: 10/25/22 09:20 Dose: 1,000 units Documented By: Admin: 10/24/22 09:02 Dose: 1,000 units Documented By: QBrendaV Imaging Data Radiologist's Impression: Head CT 10/23/22 11:27 CT SCAN OF THE BRAIN WITHOUT IV CONTRAST CLINICAL HISTORY: Falls. COMPARISON STUDY: No priors. TECHNIQUE: Unenhanced axial CT scan of the brain is performed from the vertex to the skull base. A dose lowering technique was utilized adhering to the principles of ALARA. CT DOSE: 788.63 mGycm FINDINGS: Brain parenchyma: Left frontal encephalomalacia is unchanged and consistent with a remote insult. There is age-related involutional change noting moderate subcortical and periventricular microangiopathic disease. There is no hemorrhage, mass effect, or evidence of acute territorial ischemia by CT criteria. Henry-white matter differentiation is preserved. No extra-axial fluid collection is seen. Ventricles, sulci, cisterns: Prominent secondary to involutional change. Intracranial vasculature: There is atherosclerotic calcification of the cavernous carotid and vertebral arteries. Calvarium: The skeletal structures are osteopenic. No depressed calvarial fracture is seen. Sinuses and mastoids: There is trace mucosal thickening within the right maxillary antrum. The remaining paranasal sinuses are clear. The mastoid air cells are well pneumatized. Orbits: The bony orbits are grossly intact. IMPRESSION: Chronic changes as above with no hemorrhage, mass effect, or evidence of acute territorial ischemia by CT criteria. ACT 112: Negative or not required by law. Electronically signed by: Ronnie Eisenberg M.D. 10/23/2022 12:[address] 10/23/22 11:29 CT SCAN OF THE CERVICAL SPINE CLINICAL HISTORY: Trauma. Fall. COMPARISON STUDY: No priors. TECHNIQUE: CT scan of the cervical spine is performed from the skull base to the upper thoracic spine. Images are reviewed in the axial, sagittal, and coronal planes. IV contrast was not administered for this examination. A dose lowering technique was utilized adhering to the principles of ALARA. CT DOSE: 470.38 mGycm FINDINGS: Skeletal structures: The skeletal structures are osteopenic. There is no eviden ce of fracture or subluxation involving the cervical spine. Vertebral body height is maintained. There is minimal anterolisthesis at C5-C6. Alignment is otherwise preserved. There is straightening of the cervical lordosis. The odontoid process and lateral masses are intact. The atlantoaxial articulation is preserved noting productive degenerative changes. The spinous processes appear intact. There is mild multilevel facet arthropathy. Intervertebral discs: There is only mild degenerative disc space narrowing. Central canal: Grossly patent. Soft tissues: The prevertebral and paraspinous soft tissues are within normal limits. Calvarium: The visualized calvarium at the skull base appears intact. Brain parenchyma: Partially visualized brain parenchyma at the skull base is within normal limits. Sinuses and mastoids: There is trace mucosal thickening within the maxillary antra and the right sphenoid sinus. The mastoid air cells are well pneumatized. Lung apices: Clear as visualized. IMPRESSION: There is no evidence of fracture or subluxation involving cervical spine. ACT 112: Negative or not required by law. Electronically signed by: Ronnie Eisenberg M.D. 10/23/2022 12:50 PM Chest X-Ray 10/23/22 11:29 XR chest 1V portable HISTORY: 72 years-old Male weakness acute weakness COMPARISON: Chest radiograph 01/06/2019 TECHNIQUE: AP view of the chest FINDINGS: Cardiac silhouette is enlarged. Prior median sternotomy with cardiac valvular prosthesis. No pneumothorax, large pleural effusion or lobar airspace consolidation. Pulmonary vascular congestion. Chronic right-sided rib fracture deformities. Degenerative changes of the shoulders and spine. IMPRESSION: Cardiomegaly with pulmonary vascular congestion. ACT 112: Negative or not required by law. The above report was generated using voice recognition software. It may contain grammatical, syntax or spelling errors. Electronically signed by: Gerber Corrales M.D. 10/23/2022 12:[address] 10/23/22 11:29 CT facial bones wo con CLINICAL HISTORY: trauma TECHNIQUE: Multidetector row helical CT of the maxillofacial bones was performed without administration of intravenous contrast, and processed with bone and soft tissue algorithms. Coronal and sagittal reformations were obtained. Automated dose lowering techniques and/or adjustment according to patient size were utilized for this exam. CT DOSE: 542.52 mGycm Comparison: None available at the time of this dictation. FINDINGS: Nasal bones are normal. The mandible is intact. The temporomandibular joints are anatomically aligned. Pterygoid plates are intact. Zygomatic arches are inta ct. The globes are normal and symmetric, without proptosis, obvious disruption or lens dislocation. There is no orbital radiopaque foreign body. The orbital joshau are intact. The retrobulbar fat is without evidence of disruption. Extraocular muscles are normal and symmetric. Optic nerve sheath complexes are normal in course and caliber. Sinus thickening is seen in the maxillary sinus. IMPRESSION: No facial fracture is seen. ACT 112: Negative or not required by law. Electronically signed by: Wilton Esparza M.D. 10/23/2022 12:50 PM Lumbar Spine X-Ray 10/23/22 12:37 XR lumbar spine 2-3V CLINICAL HISTORY: falls, pain TECHNIQUE: 3 views of the lumbar spine were obtained. Comparison: Comparison is made to lumbar spine radiographs 08/08/2017 and MRI lumbar spine 07/21/2018 FINDINGS: Posterior decompression and fusion is again seen at L4-L5. Compression deformity of the L1 vertebral body is seen, favored to be acute. Multilevel degenerative changes are seen. The alignment is normal. Vascular calcifications are noted. IMPRESSION: There is an acute appearing compression deformity of the L1 vertebral body, new from prior exam in 2018. No radiographic evidence of significant retropulsion or involvement of posterior elements, however this is better evaluated by CT. ACT 112: Negative or not required by law. Electronically signed by: Wilton Esparza M.D. 10/23/2022 4:01 PM Thoracic Spine X-Ray 10/23/22 12:37 THORACIC SPINE 3 VIEWS: CLINICAL HISTORY: Fall. Thoracic back pain. FINDINGS: AP, lateral, and swimmer's views of the thoracic spine are correlated with abdominal CT dated 02/27/2019. The skeletal structures are osteopenic. There are age-indeterminate superior endplate compression deformities of T11 and L1. These are new from the 02/27/[address] Vertebral body height is otherwise maintained throughout the thoracic spine. Alignment is preserved. A nterior osteophytes are seen throughout. The transverse processes and pedicles are grossly intact as seen on the frontal view. There is minimal degenerative disc space narrowing. The heart is enlarged. The patient is status post midline sternotomy and aortic valve surgery. The imaged lung parenchyma appears clear. IMPRESSION: 1. There are age-indeterminate compression deformities of T11 and L1 which are new from the 02/27/[address] Correlate for point tenderness. 2. Vertebral body height is otherwise maintained throughout the thoracic spine. 3. Osteopenia and mild degenerative change as above. Dictated: 10/23/2022 3:30 PM Transcribed: 10/23/2022 3:47 PM Natalia [id number] [email or web address] Electronically signed by: Ronnie Eisenberg M.D. 10/23/2022 4:02 PM Blood Pressure Blood Pressure Findings: Elevated blood pressure Blood Pressure Disposition: further management by hospitalist Discharge Plan Visit Data Chief Complaint: Referred by Doctor Stated Complaint: REF BY PERFECTO JAMES ED Provider: Tana Magana Discharge Problem: ABLA (acute blood loss anemia), Cirrhosis, Lumbar compression fracture, GIB (gastrointestinal bleeding), Frequent falls Patient Disposition: Admitted As Inpatient Discharge Instructions Interventions: ED Discharge Assessment Last Done: 10/24/22 13:48
[2022-10-23] MEDS: POTASSIUM CHLORIDE 10 MEQ TABCR PO SCH (21:00)
[2022-10-23] MEDS: SIMVASTATIN 20 MG TAB PO SCH (21:00)
[2022-10-23] MEDS: BUMETANIDE 1 MG TAB PO SCH (21:00)
[2022-10-23] MEDS: PANTOprazole 40 MG in DEXTROSE 5% 100 ML IV SCH (21:00)
[2022-10-23] MEDS: FLECAINIDE ACETATE 100 MG TABLET PO SCH (21:01)
[2022-10-23] MEDS: METOPROLOL SUCC 50MG EXT REL TAB PO SCH (21:02)
[2022-10-23 21:57] LABS: Hematocrit (blood only) 24.8 % (40.1-51.0); Hemoglobin 7.6 g/dl (14.0-18.0)
[2022-10-24] MEDS ORDERED: SODIUM CHLORIDE 0.9% 250 ML IV PRN (02:44)
[2022-10-24] MEDS: PANTOprazole 40 MG in DEXTROSE 5% 100 ML IV SCH ×4 (03:07→18:34)
[2022-10-24 08:12] LABS: Basophils # (auto) 0.01 K/uL (0-0.2); Basophils % (auto) 0.1 %; Eosinophils # (auto) 0.23 K/uL (0-0.50); Eosinophils % (auto) 2.7 %; Hematocrit (blood only) 32.2 % (40.1-51.0); Hemoglobin 10.2 g/dl (14.0-18.0); Immature Granulocytes # (auto) 0.04 K/uL (0.00-0.02); Immature Granulocytes % (auto) 0.5 %; Lymphocytes # (auto) 0.63 K/uL (1.2-3.4); Lymphocytes % (auto) 7.5 %; Mean Corpuscular Hgb Conc 31.7 g/dL (32.0-36.0); Mean Corpuscular Volume 85.2 fL (80.0-100.0); Mean Platelet Volume 9.2 fL (9.4-12.4); Monocytes # (auto) 0.79 K/uL (0.24-0.82); Monocytes % (auto) 9.4 %; Neutrophils # (auto) 6.71 K/uL (1.4-6.5); Neutrophils % (auto) 79.8 %; Platelet Count 320 K/uL (130-400); RDW Standard Deviation 49.3 fL (36.4-46.3); Red Blood Count 3.78 M/uL (4.63-6.08); White Blood Count 8.41 K/ul (4.8-10.8)
[2022-10-24 08:25] LABS: INR 1.1 (0.9-1.1); Partial Thromboplastin Ratio 1.3; Prothrombin Time 11.4 Seconds (9.0-12.0)
[2022-10-24 08:37] LABS: Albumin Globulin Ratio 1.2 (0.9-2); Albumin Level 3.4 gm/dl (3.4-5.0); BUN Creatinine Ratio 11.5 (10-20); Bilirubin,Total 2.4 mg/dl (0.2-1.0); Calcium 8.9 mg/dl (8.5-10.1); Creatinine Clr Calc Pharmacy 79.6 ml/min; Est GFR (African American) 103.1 ml/min; Est GFR (Non-African American) 88.9 ml/min; Globulin 2.9 gm/dl (2.5-4.0); Potassium 3.7 mmol/L (3.5-5.1); Total Protein 6.3 gm/dl (6.0-8.3)
[2022-10-24] MEDS: FLECAINIDE ACETATE 100 MG TABLET PO SCH ×2 (09:02→20:26)
[2022-10-24] MEDS: CHOLECALCIFEROL 1,000 UNITS 25 MCG TAB PO SCH (09:02)
[2022-10-24] MEDS: DULoxetine HCL 60 MG CAP PO SCH (09:02)
[2022-10-24] MEDS: METOPROLOL SUCC 50MG EXT REL TAB PO SCH ×2 (09:03→20:25)
--- NOTE | 2022-10-24 10:03 | Gastrointestinal Consultation ---
Date of Consultation October 24, 2022 Assessment & Plan (1) Iron deficiency anemia: No active GI bleeding. Patient has heme positive stool, however with known history of hemorrhoids and on Xarelto and EGD and colonoscopy less than 1 month ago were unremarkable. Would advise Protonix 40 mg BID. Can have a video capsule study as an outpatient, but would manage his anemia supportively at this time. (2) Cirrhosis: -Up to date with cirrhosis management with most recent visit on 10/10/22. Continue with plan set in place by Sandy FAGAN as an outpatient. Ammonia level was normal on admission, but if no other causes found for confusion, could consider adding Xifaxan 550 mg BID for possible hepatic encephalopathy. History of Present Illness Reason for Consultation: "UGI bleed, history of cirrhosis" Attending Physician: Omar Wilson History of Present Illness Patient is a 72 yo male with PMH of alcoholic cirrhosis, a fib, CAD, HLD, HTN, CKD, hyperparathyroidism, GERD, BPH, & iron deficiency anemia who presented to the ED with a complaint of confusion and frequent falls. Reportedly he has been hearing voices of people in his home and his has told him no one is there. He began falling. He notes fatigue. He has occasional hemorrhoidal bleeding, but denies vomiting, constipation, diarrhea, melena, hematemesis, or hematochezia. His H/H upon presentation to the ED was 7.6/32.2. This morning he is at 10.2/32.2. He has heme positive stool, but he had a colonoscopy & EGD less than one month ago that was unremarkable for any active bleeding. He is chronically anticoagulated on Xarelto. We do not have a baseline H/H since May of 2022. He is up to date with ongoing cirrhosis management and saw our outpatient clinic 2 weeks ago. Ammonia checked upon presentation to the ED was unremarkable. He has no previous history of hepatic encephalopathy. Allergies Allergy/AdvReac Type Severity Reaction Status Date / Time amoxicillin Allergy Mild Rash Verified 10/10/22 14:07 Penicillins Allergy Mild RASH Verified 10/10/22 14:07 amlodipine AdvReac Mild COUGHING Verified 10/10/22 14:07 lisinopril AdvReac Mild COUGH Verified 10/10/22 14:07 Home Medications Medication Instructions Recorded Confirmed Type aspirin 81 mg tablet,delayed 81 mg PO QAM 07/11/18 10/23/22 History release (Adult Aspirin Regimen) cholecalciferol (vitamin D3) 25 1,000 units PO QAM 09/29/19 10/23/22 History mcg (1,000 unit) chewable tablet clindamycin HCl 300 mg capsule 600 mg PO UD PRN dental work 10/25/20 10/23/22 History (Cleocin HCl) bumetanide 1 mg tablet 1 mg PO QPM #90 tabs 11/07/21 10/23/22 Rx pantoprazole 40 mg tablet,delayed 40 mg PO QPM #90 tabs 05/21/22 10/23/22 Rx release simvastatin 20 mg tablet (Zocor) 20 mg PO HS #90 tabs 06/18/22 10/23/22 Rx duloxetine 60 mg capsule,delayed 60 mg PO DAILY lumbar 06/19/22 10/23/22 Rx release radiculopathy #30 caps metoprolol succinate 100 mg 100 mg PO BID #180 tabs 07/16/22 10/23/22 Rx tablet,extended release 24 hr potassium chloride 10 mEq 10 meq PO QPM #90 caps 08/30/22 10/23/22 Rx capsule,extended release bupropion HCl 300 mg 24 hr tablet, 300 mg PO QAM #90 tabs 09/26/22 10/23/22 Rx extended release oxycodone-acetaminophen 7.5 mg-325 1 tab PO Q6H PRN pain #120 tabs 10/09/22 10/23/22 Rx mg tablet dapagliflozin 10 mg tablet 10 mg PO DAILY 10/23/22 10/23/22 History (Farxiga) flecainide 150 mg tablet 150 mg PO Q12 10/23/22 10/23/22 History rivaroxaban 20 mg tablet (Xarelto) 20 mg PO DAILY 10/23/22 10/23/22 History Patient History Medical History Anxiety Aortic valve disease S/P BIOPROSTETHIC AVR (2010) Atrial fibrillation PAROXYSMAL- FOLLOWS DR RANDLE LAST VISIT 5-6 MOS AGO Bradycardia CHRONIC; ASYMPTOMATIC ON BETA JEMAL Chronic back pain OCCASIONAL RIGHT SIDED Chronic kidney disease BASELINE CREATININE 1.5-1.6 Gastroesophageal reflux disease CONTROLLED Hx of basal cell carcinoma CHEEK AND FOREHEAD Hyperlipidemia Hypertension Non-occlusive coronary artery disease Osteoarthritis PTSD (post-traumatic stress disorder) Surgical History H/O aortic valve replacement BIOPROSTETHIC AVR (2010) @ [facility] [place] History of colonoscopy History of esophagogastroduodenoscopy (EGD) History of lumbar spinal fusion Family History Mother Family hx of colon cancer Colorectal cancer Father Alcohol abuse Brother Alcohol abuse Other No family history of adverse response to anesthesia Denies family history of Ovarian cancer Prostate cancer Coronary heart disease Crohn's disease Breast cancer Lung cancer Ulcerative colitis Social History Smoking Status: Never smoker Tobacco Type: Cigarettes Age Started Using Tobacco: 17; Age Quit Using Tobacco: 18; packs per day: 0.25; Cigarettes Per Day: smoked only when he was in the [place], states he "did not smoke much"; Second Hand Exposure: No; Hx Alcohol Use: No Hx Substance Use: No Preferred Language: Sami Communication Ability: Effective Visual Impairment: No Limitations Hearing Ability: Use of Hearing Aid Set Up Operator Tool Required: No Beliefs That Will Affect Care: None marital status: Current Living Situation: Spouse current occupational status: retired current occupation: retired from career with [employer] as C[employer] to [employer] Feels Safe at Home: Yes Safety Concerns: Feels Safe At This Time Childhood Exposure to Second-Hand Smoke: No Dental Care, Regularly: Yes Physical Activity Frequency: Does not Exercise Seatbelt Use: always Sunscreen Use: Yes Assistive Devices: Cane Review of Systems Constitutional: + fatigue; no fever and no chills Gastrointestinal: no abdominal pain, no heartburn, no coffee ground emesis, no hematemesis and no melena Psychiatric: no problem reported Hematologic / Lymphatic: no unexplained weight loss Physical Exam Constitutional: WD/WN, vitals as above Respiratory: normal respiratory effort Cardiovascular: Rate/Rhythm: regular rate Gastrointestinal (Abdomen): normal bowel sounds, soft, nontender, no hepatosplenomegaly Psychiatric: Orientation: alert and oriented x 3 Results & Data ([facility]) Vital Signs (Past 12 Hours) Vital Signs Temp Pulse Resp BP Pulse Ox 10/24/22 06:50 83 17 10/24/22 06:40 79 19 10/24/22 06:30 79 14 10/24/22 06:20 79 13 10/24/22 06:10 79 24 10/24/22 06:01 169/85 H 10/24/22 06:01 79 23 10/24/22 06:00 79 17 10/24/22 05:50 79 25 H 10/24/22 05:50 36.2 C L 78 18 130/108 H 94 10/24/22 05:40 79 22 10/24/22 05:30 79 29 H 10/24/22 05:20 79 22 10/24/22 05:10 79 21 10/24/22 05:01 130/108 H 10/24/22 05:01 79 10 L 10/24/22 05:00 79 22 90 10/24/22 04:50 79 17 96 10/24/22 04:47 79 23 96 10/24/22 04:47 145/88 H 10/24/22 04:40 79 20 96 10/24/22 04:30 79 22 96 10/24/22 04:21 152/82 H 10/24/22 04:21 79 33 H 88 L 10/24/22 04:20 79 16 94 10/24/22 04:10 79 23 97 10/24/22 04:07 79 17 94 10/24/22 04:07 148/95 H 10/24/22 04:00 79 19 93 10/24/22 04:00 150/83 H 10/24/22 03:50 79 27 H 95 10/24/22 03:40 79 26 H 10/24/22 03:30 79 27 H 10/24/22 03:20 79 23 10/24/22 03:10 79 21 10/24/22 03:01 80 22 10/24/22 03:01 136/74 10/24/22 03:00 79 24 10/24/22 02:50 78 26 H 10/24/22 02:40 79 25 H 10/24/22 02:30 79 21 95 10/24/22 02:28 156/77 H 10/24/22 02:28 79 14 92 10/24/22 02:20 79 19 96 10/24/22 02:15 150/77 H 10/24/22 02:14 79 20 95 10/24/22 02:10 79 22 10/24/22 02:00 79 26 H 10/24/22 01:50 79 29 H 95 10/24/22 01:45 79 27 H 97 10/24/22 01:45 149/93 H 10/24/22 01:42 79 15 10/24/22 00:50 84 18 10/24/22 00:40 81 17 88 L 10/24/22 00:30 79 28 H 96 10/24/22 00:30 149/85 H 10/24/22 00:20 81 16 96 10/24/22 00:10 79 27 H 94 10/24/22 00:00 78 31 H 97 10/24/22 00:00 166/93 H 10/24/22 04:50 36.2 C L 79 16 145/88 H 94 10/24/22 04:20 36 C L 79 16 152/82 H 94 10/24/22 04:05 36.0 C L 79 16 148/95 H 94 10/24/22 03:49 36.1 C L 79 16 136/74 91 10/24/22 00:48 36.9 C 79 18 149/85 H 96 10/23/22 23:48 36.9 C 78 18 173/91 H 99 10/23/22 23:18 36.9 C 78 18 165/91 H 99 10/23/22 23:03 36.9 C 78 18 153/79 H 95 10/23/22 23:00 37 C 78 18 153/79 H 97 10/23/22 22:38 36.7 C 78 17 160/89 H 97 PG Care Time/CCT Total # of Minutes Spent Total Time Spent with Patient: Total time spent is greater than 50% in coordination of care (as documented) at patient's floor/unit and/or counseling patient: Coding Level of Care Code 43706 INT INP/OBS CARE 3/75MIN Diagnoses Iron deficiency anemia D50.9 Cirrhosis K74.60
[2022-10-24] MEDS: CALCITONIN SALMON NA 200 IU/AC 3.7 ML BTL SCH (10:07)
[2022-10-24] MEDS ORDERED: NITROFURANTOIN MONOHYDRATE 100 MG CAP PO ONE (10:30)
[2022-10-24] MEDS ORDERED: oxyCODONE/ACETAMINOPHEN 5mg/325mg TAB PO PRN (14:42)
[2022-10-24] MEDS ORDERED: oxyCODONE HCL IR 5 MG TAB (IMMEDIATE RELEASE) PO PRN (14:59)
[2022-10-24] MEDS ORDERED: traMADol HCL 50 MG TABLET PO PRN (15:09)
[2022-10-24] MEDS ORDERED: cefTRIAXone SODIUM 2,000 MG in DEXTROSE 5% 50 ML IV SCH (16:00)
[2022-10-24] MEDS ORDERED: traMADol HCL 50 MG TABLET PO STA (17:49)
[2022-10-24 19:21] LABS: Hematocrit (blood only) 31.5 % (40.1-51.0)
[2022-10-24] MEDS: PANTOprazole 40 MG TAB PO SCH (20:27)
[2022-10-24] MEDS: BUMETANIDE 1 MG TAB PO SCH (20:27)
[2022-10-24] MEDS: SIMVASTATIN 20 MG TAB PO SCH (20:28)
[2022-10-24] MEDS: POTASSIUM CHLORIDE 10 MEQ TABCR PO SCH (20:28)
[2022-10-24] MEDS ORDERED: NITROFURANTOIN MONOHYDRATE 100 MG CAP PO SCH (21:00)
[2022-10-24] MEDS: oxyCODONE/ACETAMINOPHEN 5mg/325mg TAB PO PRN (21:00)
[2022-10-24] MEDS ORDERED: LIDOCAINE 5% 1 PATCH TD SCH (21:00)
--- NOTE | 2022-10-24 22:27 | Hospitalist Progress Note ---
Date of Service October 24, 2022 Assessment & Plan (1) GIB (gastrointestinal bleeding): Plan: - Patient without any obvious blood in stool or black, tarry stools however was heme positive in ED. - Hgb 13 in May, now 7.5 on admision -Improved to 10.2 after 2 units of PRBC - Does have a history of iron deficiency anemia, previously seen by heme/onc. - received diuretic after each unit as concern for pulmonary congestion. - Iron studies added onto labs. - May be either an upper or lower GI bleed with his history of cirrhosis and a possible bleed seen on EGD in 2018 presumed to be an AVM, also has had several colon polyps removed, family history of colon cancer in his mother. - Given his diagnosis of cirrhosis, he had had a recent EGD and colonoscopy last month, EGD unremarkable, colonoscopy significant for 3 noncancerous polyps rem hero. Did initially have some patient procedure bleeding over the first few days, likely due to hemorrhoids and Xarelto use, however this had subsided. - Last Xarelto dose: 10/23 - Initally patient on PPI drip, now on BID. - consult GI, appreciate their recommendations. - 1g TXA ordered on 10/23 -will recheck hemoglobin on 10/25 (2) Urinary tract infection: Plan: - WBC 12, UA with 1+ bacteria, nitrites, 10-30 WBCs. - Not complaining of urinary symptoms but suspect his confusion/hallucinations may be his presenting symptoms. (3) Metabolic encephalopathy: Plan: ammonia level is normal. Treating UTI with macrobid. will montor. waxing and waning: remains AAOx3 on 10/24 may be due to his oxycodone. (4) Encephalopathy: Plan: - Suspect may be a combination of UTI and medication induced encephalopathy, as patient notes a correlation of visual, auditory hallucinations with the increase of bupropion from 150 mg to 300 mg. - His AST and T bili are mildly elevated from baseline, however ammonia is 27, negative asterixis, do not think this is hepatic encephalopathy. - Head CT without hemorrhage, territorial infarct, or mass/midline shift. - We will hold his bupropion, blood transfusion as above, Rocephin for UTI, monitor for improvement. Currently, patient is AAO x3, able to verbalize that he knows his hallucinations are not real. (5) Lumbar compression fracture: Plan: - Several falls over the past few days. - Lumbar XR: There is an acute appearing compression deformity of the L1 vertebral body, new from prior exam in 2018. No radiographic evidence of significant retropulsion or involvement of posterior elements, however this is better evaluated by CT. - Imaging otherwise negative for acute fractures or other injury. - Lidocaine patches, calcitonin spray, home [place] continued for pain relief. - PT/OT to evaluate and treat. (6) Cirrhosis: Plan: - [place] to be alcohol related, patient has not drank in many years. - Has close follow-up with GI, recently had EGD ditch did not reveal any varices, colonoscopy with several polyps removed. - Due for AFP, liver U/S December. - Tylenol 2 g maximum per day. - On admission: T bili 2.7, AST 43, ammonia 27. Creatinine 0.91, sodium 135, INR pending, 1.3 when last checked one year ago. (7) Depression: Plan: - Patient has history of depression, anxiety and irritability along with PTSD as he is a and served in [place]. He has been having increased flashbacks over the past several months. - Patient has recently had his Cymbalta increased from 30 to 60 mg and bupropion increased 150mg to 300 mg, onset of hallucinations occurred with the bupropion dose change. - Continue Cymbalta, however hold his bupropion for now. - Hallucinations are both visual and auditory, they are nonviolent. Patient denies any suicidal homicidal ideation. (8) Atrial fibrillation with rapid ventricular response: Plan: - History of, remains on flecainide, metoprolol, and Xarelto. Xarelto will be held given suspected lower versus upper GI bleed. (9) CAD (coronary artery disease): Plan: - Has a history of nonobstructive coronary artery disease with luminal irregularities noted in January 2011 and valvular heart disease with bioprosthetic AVR in January 2011. - Has been exercising without chest pain, palpitations, shortness of breath over the last several months, which remains unchanged today. - Echo February 2022: Left ventricular size, wall motion, systolic function. Mild LVH, EF 50 to 55%, well-seated prosthetic aortic valve, mild MR. - Hold baby aspirin due to concerns for GI bleed; otherwise continue metoprolol, Bumex, Farxiga, statin therapy. - Troponin is mildly elevated at 28.1, patient without chest pain, palpitations, shortness of breath. - We will trend troponin overnight, suspicion for ACS. (10) Gastroesophageal reflux disease: Plan: - Patient on Protonix drip for concern for UGI bleed as above. Now on PO portonix (11) Hyperlipidemia: Plan: - Continue statin therapy. (12) Hypertension: Plan: - Continue metoprolol. (13) Chronic kidney disease: Plan: - Cr 0.91, renal function at/near baseline. - Avoid nephrotoxins, renally dose medications as able. Plan - Admit to PCU. - SCDs DVT prophylaxis, no chemoprophylaxis due to concern for GI bleed. - Full code. Admission and Anticipated Discharge Date Admission Date: October 23, 2022 Subjective 72 yo male reports no new symptoms. Patient remains confused but is oriented. Review of Systems Review of Systems: All systems reviewed & are unremarkable except as noted in HPI & below Physical Exam Physical Exam: General: awake, alert, no apparent distress Head: Normocephalic, atraumatic ENT: PERRL, EOMI, no pharyngeal exudate, mucous membranes moist Chest: Clear to auscultation, on room air, no adventitious breath sounds Cardiac: Regular rate and rhythm, no murmur, no JVD, normal peripheral pulses, good capillary refill Abdominal: NABS x 4 quadrants, soft, nontender to palpation, no rebound, guarding or tenderness Extremities: Normal inspection, no peripheral edema or erythema, calfs nontender to palpation Psych: Normal mood and affect Neuro: AAO x 3, strength intact bilaterally and rated 5/5, no motor deficits, speech is clear, no peripheral sensory deficits Skin: no rash or erythema Results & Data Results & Data ([facility]) Vital Signs (Past 12 Hours) Vital Signs Temp Pulse Pulse Resp BP BP Pulse Ox 10/24/22 19:09 36.8 C 73 20 170/91 H 94 10/24/22 13:52 10/24/22 14:36 162/98 H 10/24/22 14:11 168/99 H 10/24/22 13:52 36.9 C 76 18 176/115 H 99 10/24/22 17:00 10/24/22 16:36 36.5 C 71 18 160/93 H 92 10/24/22 13:47 71 168/87 H 98 10/24/22 11:00 72 20 153/91 H 97 Pulse Ox O2 Del Method O2 Del Method 10/24/22 19:09 Room Air 10/24/22 13:52 Room Air 10/24/22 14:36 10/24/22 14:11 10/24/22 13:52 Room Air 10/24/22 17:00 99 Room Air 10/24/22 16:36 Room Air 10/24/22 13:47 Room Air 10/24/22 11:00 Room Air PG Care Time/CCT Total # of Minutes Spent Total Time Spent with Patient: Total time spent is greater than 50% in coordination of care (as documented) at patient's floor/unit and/or counseling patient: Coding Level of Care Code 65618 SUB INP/OBS CARE 3/50MIN Diagnoses GIB (gastrointestinal bleeding) K92.2 Urinary tract infection N39.0 Metabolic encephalopathy G93.41 Encephalopathy G93.40 Lumbar compression fracture S32.000A Cirrhosis K74.60 Depression F32.A Atrial fibrillation with rapid ventricular response I48.91 CAD (coronary artery disease) I25.10 Gastroesophageal reflux disease K21.9 Hyperlipidemia E78.5 Hypertension I10 Chronic kidney disease N18.9
[2022-10-25 06:25] LABS: Hematocrit (blood only) 32.4 % (40.1-51.0); Hemoglobin 10.1 g/dl (14.0-18.0); Mean Corpuscular Hgb Conc 31.2 g/dL (32.0-36.0); Mean Corpuscular Volume 86.6 fL (80.0-100.0); Mean Platelet Volume 9.6 fL (9.4-12.4); Platelet Count 283 K/uL (130-400); RDW Coefficient of Variation 16.2 % (11.5-14.5); RDW Standard Deviation 50.9 fL (36.4-46.3); Red Blood Count 3.74 M/uL (4.63-6.08)
[2022-10-25 07:44] LABS: BUN Creatinine Ratio 11.1 (10-20); Est GFR (African American) 101.5 ml/min; Est GFR (Non-African American) 87.6 ml/min; Potassium 3.7 mmol/L (3.5-5.1)
--- NOTE | 2022-10-25 07:48 | Hospitalist Progress Note ---
Date of Service October 25, 2022 Assessment & Plan (1) GIB (gastrointestinal bleeding): Plan: - Patient without any obvious blood in stool or black, tarry stools however was heme positive in ED. - Hgb 13 in May, now 7.5 on admision -Improved to 10.2 after 2 units of PRBC, recheck hemoglobin on 10/25 10.1 - Does have iron deficiency anemia, iron on admission is 14, previously seen by heme/onc. - - May be either an upper or lower GI bleed with his history of cirrhosis and a possible bleed seen on EGD in 2019 presumed to be an AVM, also has had several colon polyps removed, family history of colon cancer in his mother. - Given his diagnosis of cirrhosis, he had had a recent EGD and colonoscopy last month, EGD unremarkable, colonoscopy significant for 3 noncancerous polyps removed. - Last Xarelto dose: 10/23 - protonix BID.. - 1g TXA ordered on 10/23 (2) Urinary tract infection: Plan: - enterococcus faecalis uti poa, metabolic encephalopathy associated with it,will use po cipro as has pcn allergy, after ceftriaxone dose in the ER (3) Encephalopathy: Plan: - Suspect may be a combination of UTI and medication induced encephalopathy, as patient notes a correlation of visual, auditory hallucinations with the increase of bupropion from 150 mg to 300 mg. hold his bupropion - His ammonia is 27, this rules out hepatic encephalopathy. - Head CT without hemorrhage, territorial infarct, or mass/midline shift. -persistent hallucinations, may still be resolving encephalopathy, if persists another day may consider MRI - Currently, patient is AAO x3, able to verbalize that he knows his hallucinations are not real. (4) Lumbar compression fracture: Plan: - Several falls over the past few days. - Lumbar XR: There is an acute appearing compression deformity of the L1 vertebral body, new from prior exam in 2018. No radiographic evidence of significant retropulsion or involvement of posterior elements, however this is better evaluated by CT. - Imaging otherwise negative for acute fractures or other injury. - Lidocaine patches, calcitonin spray, home [place] continued for pain relief. - PT/OT to evaluate and treat. (5) Cirrhosis: Plan: - [place] to be alcohol related, patient has not drank in many years. - Has close follow-up with GI, recently had EGD witch did not reveal any varices, colonoscopy with several polyps removed. - Due for AFP, liver U/S December. - Tylenol 2 g maximum per day. - On admission: T bili 2.7, AST 43, ammonia 27. Creatinine 0.91, sodium 135, INR pending, 1.3 when last checked one year ago. (6) Depression: Plan: - Patient has history of depression, anxiety and irritability along with PTSD as he is a and served in [place]. He has been having increased flashbacks over the past several months. - Patient has recently had his Cymbalta increased from 30 to 60 mg and bupropion increased 150mg to 300 mg, onset of hallucinations occurred with the bupropion dose change. - Continue Cymbalta, however hold his bupropion for now. - Hallucinations are both visual and auditory, they are nonviolent. Patient denies any suicidal homicidal ideation. (7) Atrial fibrillation with rapid ventricular response: Plan: - History of, remains on flecainide, metoprolol, and Xarelto. Xarelto will be held given suspected lower versus upper GI bleed. (8) CAD (coronary artery disease): Plan: - Has a history of nonobstructive coronary artery disease with luminal irregularities noted in January 2011 and valvular heart disease with bioprosthetic AVR in January 2011. - Has been exercising without chest pain, palpitations, shortness of breath over the last several months, which remains unchanged today. - Echo February 2022: Left ventricular size, wall motion, systolic function. Mild LVH, EF 50 to 55%, well-seated prosthetic aortic valve, mild MR. - Hold baby aspirin due to concerns for GI bleed; otherwise continue metoprolol, Bumex, Farxiga, statin therapy. - Troponin is not trending remains in 20's x 3 patient without chest pain, palpitations, shortness of breath. (9) Gastroesophageal reflux disease: Plan: - Patient on Protonix drip for concern for UGI bleed as above. Now on PO portonix (10) Hyperlipidemia: Plan: - Continue statin therapy. (11) Hypertension: Plan: - Continue metoprolol. Plan SCDs DVT prophylaxis, no chemoprophylaxis due to concern for GI bleed. - Full code. Nohemi daughter [phone] Admission and Anticipated Discharge Date Admission Date: October 23, 2022 Results & Data Results & Data ([facility]) Vital Signs (Past 12 Hours) Vital Signs Temp Pulse Pulse Resp BP Pulse Ox O2 Del Method 10/25/22 00:01 68 10/25/22 03:42 98.1 F 69 20 156/86 H 96 Room Air 10/24/22 23:33 98.6 F 68 20 168/82 H 95 Room Air PG Care Time/CCT Total # of Minutes Spent Total Time Spent with Patient: Total time spent is greater than 50% in coordination of care (as documented) at patient's floor/unit and/or counseling patient: Coding Level of Care Code 37996 SUB INP/OBS CARE 3/50MIN Diagnoses GIB (gastrointestinal bleeding) K92.2 Urinary tract infection N39.0 Encephalopathy G93.40 Lumbar compression fracture S32.000A Cirrhosis K74.60 Depression F32.A Atrial fibrillation with rapid ventricular response I48.91 CAD (coronary artery disease) I25.10 Gastroesophageal reflux disease K21.9 Hyperlipidemia E78.5 Hypertension I10
[2022-10-25] MEDS ORDERED: VANCOMYCIN CONSULT ACTIVE PRN (07:52)
[2022-10-25] MEDS: METOPROLOL SUCC 50MG EXT REL TAB PO SCH ×2 (08:07→21:12)
[2022-10-25] MEDS: oxyCODONE/ACETAMINOPHEN 5mg/325mg TAB PO PRN ×2 (08:07→23:57)
[2022-10-25] MEDS ORDERED: NITROFURANTOIN MONOHYDRATE 100 MG CAP PO SCH (09:00)
[2022-10-25] MEDS: DULoxetine HCL 60 MG CAP PO SCH (09:20)
[2022-10-25] MEDS: PANTOprazole 40 MG TAB PO SCH ×2 (09:20→21:11)
[2022-10-25] MEDS: CHOLECALCIFEROL 1,000 UNITS 25 MCG TAB PO SCH (09:20)
[2022-10-25] MEDS: LIDOCAINE 5% 1 PATCH TD SCH (09:20)
[2022-10-25] MEDS: CALCITONIN SALMON NA 200 IU/AC 3.7 ML BTL SCH (09:21)
[2022-10-25] MEDS: FLECAINIDE ACETATE 100 MG TABLET PO SCH ×2 (09:21→21:11)
[2022-10-25] MEDS ORDERED: hydrALAZINE HCL 20 MG/ML VIAL IV PRN (10:39)
[2022-10-25] MEDS: traMADol HCL 50 MG TABLET PO PRN (13:11)
[2022-10-25] MEDS: POTASSIUM CHLORIDE 10 MEQ TABCR PO SCH (21:10)
[2022-10-25] MEDS: BUMETANIDE 1 MG TAB PO SCH (21:12)
[2022-10-25] MEDS: SIMVASTATIN 20 MG TAB PO SCH (21:13)
[2022-10-25] MEDS: CIPROFLOXACIN 500 MG TAB PO SCH (21:51)
[2022-10-26] MEDS: DULoxetine HCL 60 MG CAP PO SCH (08:32)
[2022-10-26] MEDS: FARXIGA PO SCH (08:32)
[2022-10-26] MEDS: CALCITONIN SALMON NA 200 IU/AC 3.7 ML BTL SCH (08:32)
[2022-10-26] MEDS: METOPROLOL SUCC 50MG EXT REL TAB PO SCH ×2 (08:32→19:57)
[2022-10-26] MEDS: CIPROFLOXACIN 500 MG TAB PO SCH ×2 (08:32→19:58)
[2022-10-26] MEDS: CHOLECALCIFEROL 1,000 UNITS 25 MCG TAB PO SCH (08:32)
[2022-10-26] MEDS: FLECAINIDE ACETATE 100 MG TABLET PO SCH ×2 (08:33→19:59)
[2022-10-26] MEDS: PANTOprazole 40 MG TAB PO SCH ×2 (08:33→19:57)
[2022-10-26] MEDS: LIDOCAINE 5% 1 PATCH TD SCH (08:34)
[2022-10-26] MEDS: oxyCODONE/ACETAMINOPHEN 5mg/325mg TAB PO PRN ×2 (08:43→22:29)
--- NOTE | 2022-10-26 08:55 | Hospitalist Progress Note ---
Date of Service October 25, 2022 Assessment & Plan (1) GIB (gastrointestinal bleeding): Plan: - Patient without any obvious blood in stool or black, tarry stools however was heme positive in ED. - Hgb 13 in May, now 7.5 on admision -Improved to 10.2 after 2 units of PRBC, recheck hemoglobin on 10/25 10.1 - Does have iron deficiency anemia, iron on admission is 14, previously seen by heme/onc. - - May be either an upper or lower GI bleed with his history of cirrhosis and a possible bleed seen on EGD in 2019 presumed to be an AVM, also has had several colon polyps removed, family history of colon cancer in his mother. - Given his diagnosis of cirrhosis, he had had a recent EGD and colonoscopy last month, EGD unremarkable, colonoscopy significant for 3 noncancerous polyps removed. - Last Xarelto dose: 10/23 - protonix BID.. - 1g TXA ordered on 10/23 (2) Urinary tract infection: Plan: - enterococcus faecalis uti poa, metabolic encephalopathy associated with it,will use po cipro as has pcn allergy, after ceftriaxone dose in the ER (3) Encephalopathy: Plan: - Suspect may be a combination of UTI and medication induced encephalopathy, as patient notes a correlation of visual, auditory hallucinations with the increase of bupropion from 150 mg to 300 mg. hold his bupropion - His ammonia is 27, this rules out hepatic encephalopathy. - Head CT without hemorrhage, territorial infarct, or mass/midline shift. -persistent hallucinations, may still be resolving encephalopathy, if persists another day may consider MRI - Currently, patient is AAO x3, able to verbalize that he knows his hallucinations are not real. (4) Lumbar compression fracture: Plan: - Several falls over the past few days. - Lumbar XR: There is an acute appearing compression deformity of the L1 vertebral body, new from prior exam in 2018. No radiographic evidence of significant retropulsion or involvement of posterior elements, however this is better evaluated by CT. - Imaging otherwise negative for acute fractures or other injury. - Lidocaine patches, calcitonin spray, home [place] continued for pain relief. - PT/OT to evaluate and treat. (5) Cirrhosis: Plan: - [place] to be alcohol related, patient has not drank in many years. - Has close follow-up with GI, recently had EGD witch did not reveal any varices, colonoscopy with several polyps removed. - Due for AFP, liver U/S December. - Tylenol 2 g maximum per day. - On admission: T bili 2.7, AST 43, ammonia 27. Creatinine 0.91, sodium 135, INR pending, 1.3 when last checked one year ago. (6) Depression: Plan: - Patient has history of depression, anxiety and irritability along with PTSD as he is a and served in [place]. He has been having increased flashbacks over the past several months. - Patient has recently had his Cymbalta increased from 30 to 60 mg and bupropion increased 150mg to 300 mg, onset of hallucinations occurred with the bupropion dose change. - Continue Cymbalta, however hold his bupropion for now. - Hallucinations are both visual and auditory, they are nonviolent. Patient denies any suicidal homicidal ideation. (7) Atrial fibrillation with rapid ventricular response: Plan: - History of, remains on flecainide, metoprolol, and Xarelto. Xarelto will be held given suspected lower versus upper GI bleed. (8) CAD (coronary artery disease): Plan: - Has a history of nonobstructive coronary artery disease with luminal irregularities noted in January 2011 and valvular heart disease with bioprosthetic AVR in January 2011. - Has been exercising without chest pain, palpitations, shortness of breath over the last several months, which remains unchanged today. - Echo February 2022: Left ventricular size, wall motion, systolic function. Mild LVH, EF 50 to 55%, well-seated prosthetic aortic valve, mild MR. - Hold baby aspirin due to concerns for GI bleed; otherwise continue metoprolol, Bumex, Farxiga, statin therapy. - Troponin is not trending remains in 20's x 3 patient without chest pain, palpitations, shortness of breath. (9) Gastroesophageal reflux disease: Plan: - Patient on Protonix drip for concern for UGI bleed as above. Now on PO portonix (10) Hyperlipidemia: Plan: - Continue statin therapy. (11) Hypertension: Plan: - Continue metoprolol. Plan SCDs DVT prophylaxis, no chemoprophylaxis due to concern for GI bleed. - Full code. Nohemi daughter [phone] Admission and Anticipated Discharge Date Admission Date: October 23, 2022 Subjective pt still with some visual hallucinations, able to speak and answer questions family is at the bedside Review of Systems Review of Systems: Mild distress and fatigue no headache, no visual changes is having visual hallucinations however no speech or swallowing issues no chest pain, pressure or palpitations no shortness of breath, cough or wheezes no abdominal pain, nausea or vomiting, diarrhea or constipation no dysuria, hematuria or frequency no focal joint pain or swelling no back pain, CVA tenderness or radicular pain no bruising, bleeding or rashes no focal signs of weakness or numbness or altered sensation overall still very no complaints of anxiety or depression.. Physical Exam Physical Exam: The patient appeared stable Vital signs as documented. Lungs are clear to auscultation and appear unlabored Cardiac exam, Rhythm is regular.. No murmurs, rubs or gallops. Abdominal exam reveals normal bowel sounds, soft non tender, no masses Extremities are nonedematous and both pedal pulses are normal. Neurologic exam is alert and oriented, no focal loss of strength or sensation Skin is without bruises or rashes Psychologically is without concerns for anxiety or depression. Results & Data Results & Data ([facility]) Vital Signs (Past 12 Hours) Vital Signs Temp Pulse Pulse Resp BP BP Pulse Ox 10/26/22 07:34 97.9 F 60 18 181/86 H 97 10/26/22 03:49 98.8 F 60 18 152/81 H 95 10/25/22 22:15 62 10/25/22 22:54 98.2 F 63 18 149/80 H 97 O2 Del Method 10/26/22 07:34 Room Air 10/26/22 03:49 Room Air 10/25/22 22:15 10/25/22 22:54 Room Air PG Care Time/CCT Total # of Minutes Spent Total Time Spent with Patient: Total time spent is greater than 50% in coordination of care (as documented) at patient's floor/unit and/or counseling patient: Coding Level of Care Code 20974 SUB INP/OBS CARE 3/50MIN Diagnoses GIB (gastrointestinal bleeding) K92.2 Urinary tract infection N39.0 Encephalopathy G93.40 Lumbar compression fracture S32.000A Cirrhosis K74.60 Depression F32.A Atrial fibrillation with rapid ventricular response I48.91 CAD (coronary artery disease) I25.10 Gastroesophageal reflux disease K21.9 Hyperlipidemia E78.5 Hypertension I10
[2022-10-26] MEDS: traMADol HCL 50 MG TABLET PO PRN (11:01)
[2022-10-26 12:57] LABS: Albumin Level 3.3 gm/dl (3.4-5.0); Bilirubin Direct 0.6 mg/dl (0-0.2); Bilirubin,Total 1.5 mg/dl (0.2-1.0); Total Protein 6.5 gm/dl (6.0-8.3)
--- NOTE | 2022-10-26 15:00 | Hospitalist Progress Note ---
Date of Service October 26, 2022 Assessment & Plan (1) GIB (gastrointestinal bleeding): Plan: - Patient without any obvious blood in stool or black, tarry stools however was heme positive in ED. - Hgb 13 in May, now 7.5 on admision -Improved to 10.2 after 2 units of PRBC, recheck hemoglobin on 10/25 10.1 - Does have iron deficiency anemia, iron on admission is 14, previously seen by heme/onc. - - May be either an upper or lower GI bleed with his history of cirrhosis and a possible bleed seen on EGD in 2019 presumed to be an AVM, also has had several colon polyps removed, family history of colon cancer in his mother. - Given his diagnosis of cirrhosis, he had had a recent EGD and colonoscopy last month, EGD unremarkable, colonoscopy significant for 3 noncancerous polyps removed. - Last Xarelto dose: 10/23 - protonix BID.. - 1g TXA ordered on 10/23 Hemoglobin remains stable, will likely restart his xarelto bewteen 7 or 14 days from this event. Will likely defer to PCP. Updated , possible discharge on 10/27 (2) Urinary tract infection: Plan: - enterococcus faecalis uti poa, metabolic encephalopathy associated with it ,will use po cipro as has pcn allergy, after ceftriaxone dose in the ER -continue cipro. (3) Encephalopathy: Plan: - Suspect may be a combination of UTI and medication induced encephalopathy, as patient notes a correlation of visual, auditory hallucinations with the increase of bupropion from 150 mg to 300 mg. hold his bupropion - His ammonia is 27, this rules out hepatic encephalopathy. - Head CT without hemorrhage, territorial infarct, or mass/midline shift. -persistent hallucinations, may still be resolving encephalopathy, if persists another day may consider MRI - Currently, patient is AAO x3, able to verbalize that he knows his hallucinations are not real. (4) Lumbar compression fracture: Plan: - Several falls over the past few days. - Lumbar XR: There is an acute appearing compression deformity of the L1 vertebral body, new from prior exam in 2018. No radiographic evidence of significant retropulsion or involvement of posterior elements, however this is better evaluated by CT. - Imaging otherwise negative for acute fractures or other injury. - Lidocaine patches, calcitonin spray, home [place] continued for pain relief. - PT/OT to evaluate and treat. (5) Cirrhosis: Plan: - [place] to be alcohol related, patient has not drank in many years. - Has close follow-up with GI, recently had EGD witch did not reveal any varices, colonoscopy with several polyps removed. - Due for AFP, liver U/S December. - Tylenol 2 g maximum per day. - On admission: T bili 2.7, AST 43, ammonia 27. Creatinine 0.91, sodium 135, INR pending, 1.3 when last checked one year ago. (6) Depression: Plan: - Patient has history of depression, anxiety and irritability along with PTSD as he is a and served in [place]. He has been having increased flashbacks over the past several months. - Patient has recently had his Cymbalta increased from 30 to 60 mg and bupropion increased 150mg to 300 mg, onset of hallucinations occurred with the bupropion dose change. - Continue Cymbalta, however hold his bupropion for now. - Hallucinations are both visual and auditory, they are nonviolent. Patient denies any suicidal homicidal ideation. (7) Atrial fibrillation with rapid ventricular response: Plan: - History of, remains on flecainide, metoprolol, and Xarelto. Xarelto will be held given suspected lower versus upper GI bleed. (8) CAD (coronary artery disease): Plan: - Has a history of nonobstructive coronary artery disease with luminal irregularities noted in January 2011 and valvular heart disease with bioprosthetic AVR in January 2011. - Has been exercising without chest pain, palpitations, shortness of breath over the last several months, which remains unchanged today. - Echo February 2022: Left ventricular size, wall motion, systolic function. Mild LVH, EF 50 to 55%, well-seated prosthetic aortic valve, mild MR. - Hold baby aspirin due to concerns for GI bleed; otherwise continue metoprolol, Bumex, Farxiga, statin therapy. - Troponin is not trending remains in 20's x 3 patient without chest pain, palpitations, shortness of breath. (9) Gastroesophageal reflux disease: Plan: - Patient on Protonix drip for concern for UGI bleed as above. Now on PO portonix (10) Hyperlipidemia: Plan: - Continue statin therapy. (11) Hypertension: Plan: - Continue metoprolol. Plan SCDs DVT prophylaxis, no chemoprophylaxis due to concern for GI bleed. - Full code. Nohemi daughter [phone] Admission and Anticipated Discharge Date Admission Date: October 23, 2022 Subjective Nurse reports that overnight patient was having hallucinations. When discussing with patient, he reports he only seems fumes from air vent or from TV. Aside from that he is not seeing anything else. Review of Systems Review of Systems: All systems reviewed & are unremarkable except as noted in HPI & below Physical Exam Physical Exam: General: awake, alert, no apparent distress Head: Normocephalic, atraumatic ENT: PERRL, EOMI, no pharyngeal exudate, mucous membranes moist Chest: Clear to auscultation, on room air, no adventitious breath sounds Cardiac: Regular rate and rhythm, no murmur, no JVD, normal peripheral pulses, good capillary refill Abdominal: NABS x 4 quadrants, soft, nontender to palpation, no rebound, guarding or tenderness Extremities: Normal inspection, no peripheral edema or erythema, calfs nontender to palpation Psych: Normal mood and affect Neuro: AAO x 3, strength intact bilaterally and rated 5/5, no motor deficits, speech is clear, no peripheral sensory deficits Skin: no rash or erythema Results & Data Results & Data ([facility]) Vital Signs (Past 12 Hours) Vital Signs Temp Pulse Pulse Resp BP BP Pulse Ox 10/26/22 07:00 60 10/26/22 11:32 36.7 C 63 18 139/79 92 10/26/22 08:30 10/26/22 07:34 36.6 C 60 18 181/86 H 97 10/26/22 03:49 37.1 C 60 18 152/81 H 95 O2 Del Method 10/26/22 07:00 10/26/22 11:32 Room Air 10/26/22 08:30 Room Air 10/26/22 07:34 Room Air 10/26/22 03:49 Room Air PG Care Time/CCT Total # of Minutes Spent Total Time Spent with Patient: Total time spent is greater than 50% in coordination of care (as documented) at patient's floor/unit and/or counseling patient: Coding Level of Care Code 46338 SUB INP/OBS CARE 2/35MIN Diagnoses GIB (gastrointestinal bleeding) K92.2 Urinary tract infection N39.0 Encephalopathy G93.40 Lumbar compression fracture S32.000A Cirrhosis K74.60 Depression F32.A Atrial fibrillation with rapid ventricular response I48.91 CAD (coronary artery disease) I25.10 Gastroesophageal reflux disease K21.9 Hyperlipidemia E78.5 Hypertension I10
[2022-10-26] MEDS: BUMETANIDE 1 MG TAB PO SCH (19:58)
[2022-10-26] MEDS: SIMVASTATIN 20 MG TAB PO SCH (19:59)
[2022-10-26] MEDS: POTASSIUM CHLORIDE 10 MEQ TABCR PO SCH (20:00)
[2022-10-27 02:04] LABS: Basophils # (auto) 0.04 K/uL (0-0.2); Basophils % (auto) 0.5 %; Eosinophils % (auto) 3.5 %; Hematocrit (blood only) 32.6 % (40.1-51.0); Hemoglobin 10.2 g/dl (14.0-18.0); Immature Granulocytes # (auto) 0.03 K/uL (0.00-0.02); Immature Granulocytes % (auto) 0.4 %; Lymphocytes # (auto) 0.96 K/uL (1.2-3.4); Lymphocytes % (auto) 11.3 %; Mean Corpuscular Hemoglobin 27.1 pg (25.0-34.0); Mean Corpuscular Hgb Conc 31.3 g/dL (32.0-36.0); Mean Corpuscular Volume 86.7 fL (80.0-100.0); Mean Platelet Volume 8.8 fL (9.4-12.4); Monocytes # (auto) 0.98 K/uL (0.24-0.82); Monocytes % (auto) 11.5 %; Neutrophils # (auto) 6.18 K/uL (1.4-6.5); Neutrophils % (auto) 72.8 %; Platelet Count 309 K/uL (130-400); RDW Coefficient of Variation 16.5 % (11.5-14.5); RDW Standard Deviation 51.4 fL (36.4-46.3); Red Blood Count 3.76 M/uL (4.63-6.08); White Blood Count 8.49 K/ul (4.8-10.8)
[2022-10-27 02:38] LABS: Albumin Globulin Ratio 0.9 (0.9-2); Albumin Level 3.1 gm/dl (3.4-5.0); BUN Creatinine Ratio 13.8 (10-20); Bilirubin,Total 1.3 mg/dl (0.2-1.0); Calcium 9.2 mg/dl (8.5-10.1); Creatinine Clr Calc Pharmacy 44.1 ml/min; Est GFR (African American) 66.6 ml/min; Est GFR (Non-African American) 57.5 ml/min; Globulin 3.3 gm/dl (2.5-4.0); Magnesium 1.8 mg/dl (1.7-2.4); Total Protein 6.4 gm/dl (6.0-8.3)
--- NOTE | 2022-10-27 05:07 | Communication Note ---
Date of Service: October 27, 2022 S: Notified by RN that "just did an EKG on him because his rhythm looked unusual. EKG is showing wide QRS rhythm with right bundle branch block. Left ant erior fascicular block. HR 89, QTc 698." Patient asymptomatic. On arrival to the room, patient adamantly denies any lightheadedness, dizziness, LAZAR, CP, SOB, nausea, or abdominal pain. O: Vitals stable BP 127/84, HR 89, resp 14, temp 36.8, O2 97% RA -- Heart RRR. Lungs CTAB. A/P: Patient with conversion from NSR to a wide complex rhythm; this lasted from 0047 to 0120 before self-resolving. An EKG was performed both during the episode as well as upon resolution. Stat labs ordered including CBC, CMP, mag, and HS- trop. Plan to optimize electrolytes with goal K 4.0 and Mag 2.0. Consult cardiology. Patient is on flecainide; ? need for a different antiarrhythmic. Resident Activity Tracking Resident Involvement: Resident Care Provided Care Provided: [facility]
[2022-10-27] MEDS: oxyCODONE/ACETAMINOPHEN 5mg/325mg TAB PO PRN (05:12)
--- NOTE | 2022-10-27 07:26 | Hospitalist Progress Note ---
Date of Service October 27, 2022 Assessment & Plan (1) Encephalopathy: Plan: - Suspect may be a combination of UTI and medication induced encephalopathy, as patient notes a correlation of visual, auditory hallucinations with the stopped buproprion and reduced duiloxitine, will eventually stop it also - His ammonia is 27, this rules out hepatic encephalopathy. - Head CT without hemorrhage, territorial infarct, or mass/midline shift. -persistent hallucinations, MRI shows encephalomalacia and gliosis reportedly chronic, maybe wonder if hallucinations are from chronic aileen changes but antipsychotics will afftect Qtc and will not use at this time as are not trou aly to him - Currently, patient is AAO x3, able to verbalize that he knows his hallucinations are not real. (2) GIB (gastrointestinal bleeding): Plan: - Patient without any obvious blood in stool or black, tarry stools however was heme positive in ED. - Hgb 13 in May, now 7.5 on admision -Improved to 10.2 after 2 units of PRBC, recheck hemoglobin on 10/25 10.1 - Does have iron deficiency anemia, iron on admission is 14, previously seen by heme/onc. - - May be either an upper or lower GI bleed with his history of cirrhosis and a possible bleed seen on EGD in 2019 presumed to be an AVM, also has had several colon polyps removed, family history of colon cancer in his mother. - Given his diagnosis of cirrhosis, he had had a recent EGD and colonoscopy last month, EGD unremarkable, colonoscopy significant for 3 noncancerous polyps removed. - Last Xarelto dose: 10/23 - protonix BID.. - 1g TXA ordered on 10/23 Hemoglobin remains stable, will likely restart his xarelto between 7 or 14 days from this event. Will likely defer to PCP. (3) Urinary tract infection: Plan: - enterococcus faecalis uti poa, metabolic encephalopathy associated with it cipro plus flecanide may have affected rhythm, will return to macrobid to complete 7 day course. (4) Lumbar compression fracture: Plan: - Several falls over the past few days. - Lumbar XR: There is an acute appearing compression deformity of the L1 vertebral body, new from prior exam in 2018. No radiographic evidence of significant retropulsion or involvement of posterior elements, however this is better evaluated by CT. - Imaging otherwise negative for acute fractures or other injury. - Lidocaine patches, calcitonin spray, home [place] continued for pain relief. - PT/OT to evaluate and treat. (5) Cirrhosis: Plan: - [place] to be alcohol related, patient has not drank in many years. - Has close follow-up with GI, recently had EGD witch did not reveal any varices, colonoscopy with several polyps removed. - Due for AFP, liver U/S December. - Tylenol 2 g maximum per day. - On admission: T bili 2.7, AST 43, ammonia 27. Creatinine 0.91, sodium 135, INR pending, 1.3 when last checked one year ago. (6) Depression: Plan: - Patient has history of depression, anxiety and irritability along with PTSD as he is a and served in [place]. He has been having increased flashbacks over the past several months. - Patient has recently had his Cymbalta increased from 30 to 60 mg and bupropion increased 150mg to 300 mg, onset of hallucinations occurred with the bupropion dose change. - Reduce Cymbalta, however hold his bupropion for now. - Hallucinations are both visual and auditory, they are nonviolent. Patient denies any suicidal homicidal ideation. (7) Atrial fibrillation with rapid ventricular response: Plan: - cardioloigy stopped flecainide, metoprolol, and Xarelto. Xarelto will be held given suspected lower versus upper GI bleed. (8) CAD (coronary artery disease): Plan: - Has a history of nonobstructive coronary artery disease with luminal irregularities noted in January 2011 and valvular heart disease with bioprosthetic AVR in January 2011. - Has been exercising without chest pain, palpitations, shortness of breath over the last several months, which remains unchanged today. - Echo February 2022: Left ventricular size, wall motion, systolic function. Mild LVH, EF 50 to 55%, well-seated prosthetic aortic valve, mild MR. - Hold baby aspirin due to concerns for GI bleed; otherwise continue metoprolol, Bumex, Farxiga, statin therapy. - Troponin is not trending remains in 20's x 3 patient without chest pain, palpitations, shortness of breath. (9) Gastroesophageal reflux disease: Plan: - Patient on Protonix for concern for UGI bleed as above. (10) Hyperlipidemia: Plan: - Continue statin therapy. (11) Hypertension: Plan: - Continue metoprolol. Plan SCDs DVT prophylaxis, no chemoprophylaxis due to concern for GI bleed. - Full code. Nohemi daughter [phone] Admission and Anticipated Discharge Date Admission Date: October 23, 2022 Subjective Nurse reports that overnight patient was having hallucinations. he remains to state that today did have wide complex arrythmias overnight and stopped cipro and flecanide Cardiology is managing arrythmics Review of Systems Review of Systems: Mild distress and fatigue no headache, no visual changes is having visual hallucinations however no speech or swallowing issues no chest pain, pressure or palpitations no shortness of breath, cough or wheezes no abdominal pain, nausea or vomiting, diarrhea or constipation no dysuria, hematuria or frequency no focal joint pain or swelling no back pain, CVA tenderness or radicular pain no bruising, bleeding or rashes no focal signs of weakness or numbness or altered sensation overall still very no complaints of anxiety or depression.. Physical Exam Physical Exam: The patient appeared stable Vital signs as documented. Lungs are clear to auscultation and appear unlabored Cardiac exam, Rhythm is regular.. No murmurs, rubs or gallops. Abdominal exam reveals normal bowel sounds, soft non tender, no masses Extremities are nonedematous and both pedal pulses are normal. Neurologic exam is alert and oriented, no focal loss of strength or sensation Skin is without bruises or rashes Psychologically is without concerns for anxiety or depression. Results & Data Results & Data ([facility]) Vital Signs (Past 12 Hours) Vital Signs Temp Pulse Pulse Resp BP Pulse Ox O2 Del Method 10/27/22 02:41 97.9 F 74 18 132/78 93 Room Air 10/27/22 01:14 98.2 F 89 14 127/84 97 Room Air 10/26/22 23:49 59 L 10/26/22 22:53 97.7 F 60 18 142/86 H 96 Room Air 10/26/22 19:50 Room Air PG Care Time/CCT Total # of Minutes Spent Total Time Spent with Patient: Total time spent is greater than 50% in coordination of care (as documented) at patient's floor/unit and/or counseling patient: Coding Level of Care Code 42121 SUB INP/OBS CARE 3/50MIN Diagnoses Encephalopathy G93.40 GIB (gastrointestinal bleeding) K92.2 Urinary tract infection N39.0 Lumbar compression fracture S32.000A Cirrhosis K74.60 Depression F32.A Atrial fibrillation with rapid ventricular response I48.91 CAD (coronary artery disease) I25.10 Gastroesophageal reflux disease K21.9 Hyperlipidemia E78.5 Hypertension I10
[2022-10-27] MEDS: PANTOprazole 40 MG TAB PO SCH ×2 (07:40→21:17)
[2022-10-27] MEDS: LIDOCAINE 5% 1 PATCH TD SCH (07:40)
[2022-10-27] MEDS: METOPROLOL SUCC 50MG EXT REL TAB PO SCH ×2 (07:40→21:18)
[2022-10-27] MEDS: CHOLECALCIFEROL 1,000 UNITS 25 MCG TAB PO SCH (07:40)
[2022-10-27] MEDS: FARXIGA PO SCH (07:41)
[2022-10-27] MEDS: CALCITONIN SALMON NA 200 IU/AC 3.7 ML BTL SCH (07:41)
[2022-10-27] MEDS: DULoxetine HCL 60 MG CAP PO SCH (07:41)
[2022-10-27] MEDS ORDERED: ACETAMINOPHEN 500 MG TAB PO PRN (10:52)
[2022-10-27] MEDS: NITROFURANTOIN MONOHYDRATE 100 MG CAP PO SCH ×2 (11:57→21:18)
--- NOTE | 2022-10-27 14:58 | Magnetic Resonance Report ---
MR brain wo con HISTORY: 72 years-old Male visual hallucinations acutely altered mental status COMPARISON: Head CT October 23, 2022 TECHNIQUE: Multiplanar multisequence MRI of the brain was obtained without the use of IV contrast. FINDINGS: No restricted diffusion to suggest acute or subacute infarct. Left frontal and temporal lobe encephal omalacia redemonstrated with gliosis. Degenerative changes of the imaged cervical spine. Motion degra ded exam. No acute intracranial hemorrhage, midline shift, abnormal extra axial collection, hydroceph alus or intracranial mass. No pathologic blooming artifact identified. Involutional changes. Extensiv e and confluent T2/FLAIR hyperintense foci noted throughout the white matter. Cerebral venous sinuses and major arterial flow voids appear patent. Right greater than left mastoid effusions. Minimal mucosal thickening of the paranasal sinuses. Leftward bowing and spurring the nasa l septum. Skull, orbits and soft tissues are unremarkable. IMPRESSION: 1. No acute intracranial abnormality. No acute or subacute infarct. 2. Involutional changes with chronic microvascular ischemic disease. 3. Encephalomalacia with gliosis of the left frontal and temporal lobes redemonstrated from chronic i nsult. ACT 112: Negative or not required by law. The above report was generated using voice recognition software. It may contain grammatical, syntax o r spelling errors. Electronically signed by: Gerber Corrales M.D. 10/27/2022 2:57 PM
--- NOTE | 2022-10-27 15:47 | Cardiology Consultation ---
Date of Consultation October 27, 2022 Assessment & Plan (1) Accelerated idioventricular rhythm: (2) CAD (coronary artery disease): (3) Atrial flutter, paroxysmal: (4) Paroxysmal atrial fibrillation: (5) Hypertension: (6) Hyperlipidemia: (7) H/O aortic valve replacement: (8) Prolonged QT interval: Plan ASSESSMENT/PLAN: 1. Accelerated idioventricular rhythm: Had wide-complex ventricular rhythm overnight on 10/27/22, near 90 bpm, for approximately 33 minutes. This was while on flecainide and ciprofloxacin. Once converted, prolonged QT noted on ECG. Recommend discontinuation of flecainide and ciprofloxacin. Would avoid medications that can prolong QT. Continue beta-jose. Will repeat echo. 2. Paroxysmal atrial fibrillation/flutter: Carries a history of both A. fib and flutter. Currently in sinus rhythm. Discontinuing flecainide given wide- complex ventricular rhythm. Anticoagulation currently held due to heme positive stool and significant anemia, requiring 2 units of PRBC during this hospital stay. Can resume anticoagulation therapy when safe. Continue beta-jose for rate control strategy. Reports being asymptomatic with his arrhythmia in the past. 3. CAD: Nonobstructive when last evaluated in 2010 with cath. No angina. Antiplatelet/anticoagulation therapy has been held due to heme positive stool and significant anemia. Continue beta-jose. Statin therapy currently held but can resume when no contraindication. Consider high intensity statin therapy. 4. Hypertension: Blood pressure has been normotensive and mildly hypertensive in the past 24 hours. No changes made at this time. 5. Dyslipidemia: Typically on statin therapy but currently on hold per hospitalist service. 6. Aortic valve replacement: Appropriately functioning on 03/15/2022 echo report. SBE prophylaxis for dental procedures. 7. Prolonged QT: Avoid medications that can prolong QT. Cipro held. Flecainide discontinued. 8. Hallucinations: As per primary hospitalist service. [place] to be encephalopathy Per records. 9. Disposition: Please call with other questions or concerns. Plan of care was discussed with Dr. Carter of the primary hospitalist service. If further antibiotic therapy is necessary, will defer to primary hospitalist team to decide next best antibiotic choice. Follow-up with Dr. Matthew on discharge. Highly complex medical issues, including wide-complex/ventricular rhythm. History of Present Illness Reason for Consultation: "wide complex rhythm" Requesting Physician: Magy Gudino Attending Physician: Navi Carter MD History of Present Illness Mr. Wisdom is a pleasant 72-year-old gentleman with a history significant for nonobstructive CAD, hypertension, dyslipidemia, paroxysmal atrial fibrillation, bioprosthetic aortic valve replacement, and alcoholic cirrhosis. His primary sports fitness and wellness director is Dr. Matthew. He was admitted on 10/23/2022 after presenting with frequent falls and hallucinations. He was able to articulate that he is having hallucinations. His states that he is improved from a mental standpoint but not back to baseline. While in the room, he still had a hallucination that there was water pouring from the wall. He also had fallen 3 or 4 times prior to presentation but no known syncope. He denies chest pain, shortness of breath, palpitations, syncope, near syncope, edema, or visualized bleeding however he was noted to have heme positive stool in the emergency department and a hemoglobin of 7.5 on 10/23/2022, down from 13.3 on 06/06/2022. While here, he received PRBC x2. He was placed on ciprofloxacin for concern of UTI and bupropion was held as there was concerned that perhaps his hallucinations were from previously increased bupropion. He has been on flecainide 150 mg twice daily for history of atrial fibrillation. He states that he has not been symptomatic from atrial fibrillation or atrial flutter in the past but does recall undergoing cardioversion at some point. Overnight, he was noted to develop a wide-complex ventricular arrhythmia at 0047, before converting to sinus rhythm at 1:20 AM. The rhythm was preceded by PVCs with the same morphology noted on telemetry. He does not recall this event. Review of systems: As above. Review of systems otherwise negative/unremarkable. Family history: No known premature CAD. Social history: Quit smoking years ago. Heavy alcohol use in the past but none recently. Denies drug abuse. and lives at home with his , Zina. He has 1 daughter with Zina and 2 daughters with a previous marriage. 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 His was at the bedside. Allergies Allergy/AdvReac Type Severity Reaction Status Date / Time amoxicillin Allergy Mild Rash Verified 10/10/22 14:07 Penicillins Allergy Mild RASH Verified 10/10/22 14:07 amlodipine AdvReac Mild COUGHING Verified 10/10/22 14:07 lisinopril AdvReac Mild COUGH Verified 10/10/22 14:07 Home Medications Medication Instructions Recorded Confirmed Type aspirin 81 mg tablet,delayed 81 mg PO QAM 07/11/18 10/23/22 History release (Adult Aspirin Regimen) cholecalciferol (vitamin D3) 25 1,000 units PO QAM 09/29/19 10/23/22 History mcg (1,000 unit) chewable tablet clindamycin HCl 300 mg capsule 600 mg PO UD PRN dental work 10/25/20 10/23/22 History (Cleocin HCl) bumetanide 1 mg tablet 1 mg PO QPM #90 tabs 11/07/21 10/23/22 Rx pantoprazole 40 mg tablet,delayed 40 mg PO QPM #90 tabs 05/21/22 10/23/22 Rx release simvastatin 20 mg tablet (Zocor) 20 mg PO HS #90 tabs 06/18/22 10/23/22 Rx duloxetine 60 mg capsule,delayed 60 mg PO DAILY lumbar 06/19/22 10/23/22 Rx release radiculopathy #30 caps metoprolol succinate 100 mg 100 mg PO BID #180 tabs 07/16/22 10/23/22 Rx tablet,extended release 24 hr potassium chloride 10 mEq 10 meq PO QPM #90 caps 08/30/22 10/23/22 Rx capsule,extended release bupropion HCl 300 mg 24 hr tablet, 300 mg PO QAM #90 tabs 09/26/22 10/23/22 Rx extended release oxycodone-acetaminophen 7.5 mg-325 1 tab PO Q6H PRN pain #120 tabs 10/09/22 10/23/22 Rx mg tablet dapagliflozin 10 mg tablet 10 mg PO DAILY 10/23/22 10/23/22 History (Farxiga) flecainide 150 mg tablet 150 mg PO Q12 10/23/22 10/23/22 History rivaroxaban 20 mg tablet (Xarelto) 20 mg PO DAILY 10/23/22 10/23/22 History Patient History Medical History Anxiety Aortic valve disease S/P BIOPROSTETHIC AVR (2010) Atrial fibrillation PAROXYSMAL- FOLLOWS DR EATON LAST VISIT 5-6 MOS AGO Bradycardia CHRONIC; ASYMPTOMATIC ON BETA JOSE Chronic back pain OCCASIONAL RIGHT SIDED Chronic kidney disease BASELINE CREATININE 1.5-1.6 Gastroesophageal reflux disease CONTROLLED Hx of basal cell carcinoma CHEEK AND FOREHEAD Hyperlipidemia Hypertension Non-occlusive coronary artery disease Osteoarthritis PTSD (post-traumatic stress disorder) Surgical History H/O aortic valve replacement BIOPROSTETHIC AVR (2010) @ [facility] History of colonoscopy History of esophagogastroduodenoscopy (EGD) History of lumbar spinal fusion Family History Mother Family hx of colon cancer Colorectal cancer Father Alcohol abuse Brother Alcohol abuse Other No family history of adverse response to anesthesia Denies family history of Ovarian cancer Prostate cancer Coronary heart disease Crohn's disease Breast cancer Lung cancer Ulcerative colitis Social History Smoking Status: Never smoker Tobacco Type: Cigarettes Age Started Using Tobacco: 17; Age Quit Using Tobacco: 18; packs per day: 0.25; Cigarettes Per Day: smoked only when he was in the [employer], states he "did not smoke much"; Second Hand Exposure: No; Hx Alcohol Use: No Hx Substance Use: No Preferred Language: Tamazight Communication Ability: Effective Visual Impairment: No Limitations Hearing Ability: Use of Hearing Aid Sulfur Burner Required: No Beliefs That Will Affect Care: Restorationist marital status: Current Living Situation: Spouse current occupational status: retired current occupation: retired from career with [employer] [place] as [place] Feels Safe at Home: Yes Childhood Exposure to Second-Hand Smoke: No Dental Care, Regularly: Yes Physical Activity Frequency: Does not Exercise Seatbelt Use: always Sunscreen Use: Yes Assistive Devices: Cane Physical Exam Physical Exam: Gen.: No acute distress. Alert and oriented to p erson/place/month/year. HEENT: Anicteric sclera. Neck: No JVD. Bilateral bruits. Normal carotid upstrokes bilaterally. Cardiac: PMI was nondisplaced. No ventricular heave. Regular rate and rhythm. Normal S1-S2. 1/6 systolic murmur. No rub or gallops. Pulmonary: Clear to auscultation bilaterally without wheezes, rales, or rhonchi. Abdomen: Soft, nontender, nondistended, with normoactive bowel sounds. No bruits noted. Extremities: 2+ radial pulses bilaterally. 2+ posterior tibialis pulses bilaterally. Trace bilateral lower extremity edema. No cyanosis. Psychiatric: Affect appears appropriate. Results & Data ([facility]) Vital Signs (Past 12 Hours) Vital Signs Temp Pulse Pulse Resp BP Pulse Ox O2 Del Method 10/27/22 15:28 36.5 C 66 20 150/84 H 99 Room Air 10/27/22 11:54 37.1 C 64 20 145/87 H 95 Room Air 10/27/22 08:00 62 10/27/22 08:00 Room Air 10/27/22 08:04 36.6 C 66 18 133/91 93 Room Air Laboratory Results Laboratory Results - last 24 hr 10/27/22 10/27/22 01:55 01:55 WBC 8.49 RBC 3.76 L Hgb 10.2 L Hct 32.6 L MCV 86.7 MCH 27.1 MCHC 31.3 L RDW Std Deviation 51.4 H RDW Coeff of Sotero 16.5 H Plt Count 309 MPV 8.8 L Immature Gran % (Auto) 0.4 Neut % (Auto) 72.8 Lymph % (Auto) 11.3 [place] % (Auto) 11.5 Eos % (Auto) 3.5 Baso % (Auto) 0.5 Neut # (Auto) 6.18 Lymph # (Auto) 0.96 L [place] # (Auto) 0.98 H Eos # (Auto) 0.30 Baso # (Auto) 0.04 Immature Gran # (Auto) 0.03 H Sodium 135 L Potassium 4.0 Chloride 100 Carbon Dioxide 28 Anion Gap 7 BUN 17 Creatinine 1.23 D Est Cr Clr Drug Dosing 44.1 Est GFR ( Amer) 66.6 Est GFR (Non-Af Amer) 57.5 BUN/Creatinine Ratio 13.8 Glucose 108 H Calcium 9.2 Magnesium 1.8 Total Bilirubin 1.3 H AST 41 H ALT 37 Alkaline Phosphatase 180 H Troponin I High Sens 19.0 D Total Protein 6.4 Albumin 3.1 L Globulin 3.3 Albumin/Globulin Ratio 0.9 Diagnostic Findings Telemetry personally reviewed: Wide-complex ventricular arrhythmia on 10/27/2022 from 0047 to 1:20 AM. AI VR converted to sinus rhythm at 1:20 AM. ECGs personally reviewed: ECG 10/23/2022 at 11:52 AM: Sinus rhythm 81 bpm. Inferior infarct. Prolonged QT. Lateral ST/T wave abnormality. ECG 10/27/2022 at 0058: Accelerated idioventricular rhythm 98 bpm. RBBB with LAFB. ECG 10/27/2022 at 1:51 AM: Sinus with first-degree AV block [address]/T wave abnormality. IVCD. Echo 03/15/2022: EF 50 to 55%. Appropriately functioning bioprosthetic aortic valve. Mild MR. Normal wall motion. Brain MRI 10/27/2022: No acute intracranial abnormality. Encephalomalacia with gliosis of the left frontal and temporal lobes. Chest x-ray 10/23/2022: Image personally reviewed: Cardiomegaly. No obvious infiltrate or pleural effusion. Medications Administered Current Inpatient Medications Acetaminophen (Acetaminophen 500 Mg Tab) 1,000 mg PO Q8H PRN PRN Reason: Pain or Fever Stop: 11/26/22 11:05 Last Admin: 10/27/22 16:17 Dose: 1,000 mg Al Hydrox/Mg Hydrox/Simethicone (Aluminum/Magnesium Susp 30 Ml Udc) 15 ml PO Q4H PRN PRN Reason: Dyspepsia Stop: 11/22/22 16:13 Bumetanide (Bumetanide 1 Mg Tab) 1 mg PO QPM [facility] Stop: 11/22/22 20:59 Last Admin: 10/26/22 19:58 Dose: 1 mg Calcitonin [place] (Calcitonin [place] Na 200 Iu/Ac 3.7 Ml Btl) 1 sprays NA DAILY [facility] Stop: 11/23/22 08:59 Last Admin: 10/27/22 07:41 Dose: 1 sprays Ciprofloxacin (Ciprofloxacin 500 Mg Tab) 500 mg PO BID [facility] Stop: 11/04/22 20:59 Last Admin: 10/26/22 19:58 Dose: 500 mg Duloxetine HCl (Duloxetine Hcl 30 Mg Cap) 30 mg PO DAILY [facility] Stop: 11/27/22 08:59 Hydralazine HCl (Hydralazine Hcl 20 Mg/Ml Vial) 10 mg IV Q8 PRN PRN Reason: sbp>185 or dbp>95 Stop: 11/24/22 10:38 Last Admin: 10/25/22 12:11 Dose: 10 mg Lidocaine (Lidocaine 5% 1 Patch) 1 patch TD QAM [facility] Stop: 11/24/22 08:59 Last Admin: 10/27/22 07:40 Dose: 1 patch Metoprolol Succinate (Metoprolol Succ 50mg Ext Rel Tab) 100 mg PO BID [facility] Stop: 11/22/22 20:59 Last Admin: 10/27/22 07:40 Dose: 100 mg Miscellaneous (Remove Lidoderm Patch) 1 each N/A HS [facility] Stop: 11/23/22 20:59 Last Admin: 10/26/22 19:58 Dose: 1 each Nitrofurantoin Macrocrystals (Nitrofurantoin Monohydrate 100 Mg Cap) 100 mg PO BID [facility]; Protocol Stop: 11/01/22 08:59 Last Admin: 10/27/22 11:57 Dose: 100 mg Farxiga: Non- Formulary Patient's Own Med 1 each PO DAILY [facility] Stop: 11/25/22 08:59 Last Admin: 10/27/22 07:41 Dose: 1 tabs Pantoprazole Sodium (Pantoprazole 40 Mg Tab) 40 mg PO BID [facility] Stop: 11/23/22 20:59 Last Admin: 10/27/22 07:40 Dose: 40 mg Polyethylene Glycol (Polyethylene (Miralax) 17 Gm Pack) 17 gm PO DAILY PRN PRN Reason: Constipation Stop: 11/22/22 16:13 Potassium Chloride (Potassium Chloride 10 Meq Tabcr) 10 meq PO QPM [facility] Stop: 11/22/22 20:59 Last Admin: 10/26/22 20:00 Dose: 10 meq Simvastatin (Simvastatin 20 Mg Tab) 20 mg PO HS [facility] Stop: 11/22/22 20:59 Last Admin: 10/26/22 19:59 Dose: 20 mg Vitamin D (Cholecalciferol 1,000 Units 25 Mcg Tab) 1,000 units PO QAM [facility] Stop: 11/23/22 08:59 Last Admin: 10/27/22 07:40 Dose: 1,000 units PG Care Time/CCT Total # of Minutes Spent Total Time Spent with Patient: Total time spent is greater than 50% in coordination of care (as documented) at patient's floor/unit and/or counseling patient: Coding Level of Care Code 09117 INT INP/OBS CARE 3/75MIN Diagnoses Accelerated idioventricular rhythm I44.2 CAD (coronary artery disease) I25.10 Atrial flutter, paroxysmal I48.92 Paroxysmal atrial fibrillation I48.0 Hypertension I10 Hyperlipidemia E78.5 H/O aortic valve replacement Z95.2 Prolonged QT interval R94.31
[2022-10-27] MEDS: ACETAMINOPHEN 500 MG TAB PO PRN ×2 (16:17→23:36)
[2022-10-27] MEDS ORDERED: OLANZAPINE 2.5 MG TAB PO SCH (21:00)
[2022-10-27] MEDS: BUMETANIDE 1 MG TAB PO SCH (21:18)
[2022-10-27] MEDS: POTASSIUM CHLORIDE 10 MEQ TABCR PO SCH (21:25)
[2022-10-28] MEDS: METOPROLOL SUCC 50MG EXT REL TAB PO SCH ×2 (08:03→20:02)
[2022-10-28] MEDS: ACETAMINOPHEN 500 MG TAB PO PRN ×2 (08:15→15:51)
[2022-10-28] MEDS: NITROFURANTOIN MONOHYDRATE 100 MG CAP PO SCH ×2 (08:16→20:03)
[2022-10-28] MEDS: PANTOprazole 40 MG TAB PO SCH ×2 (08:17→20:02)
[2022-10-28] MEDS: CHOLECALCIFEROL 1,000 UNITS 25 MCG TAB PO SCH (08:17)
[2022-10-28] MEDS: DULoxetine HCL 30 MG CAP PO SCH (08:17)
[2022-10-28] MEDS: FARXIGA PO SCH (08:18)
[2022-10-28] MEDS: LIDOCAINE 5% 1 PATCH TD SCH (08:18)
[2022-10-28] MEDS: CALCITONIN SALMON NA 200 IU/AC 3.7 ML BTL SCH (08:19)
--- NOTE | 2022-10-28 16:27 | XCELERA ---
[id number]
--- NOTE | 2022-10-28 16:32 | Cardiology Progress Note ---
Date of Service October 28, 2022 Assessment & Plan (1) Accelerated idioventricular rhythm: (2) CAD (coronary artery disease): (3) Atrial flutter, paroxysmal: (4) Paroxysmal atrial fibrillation: (5) Hypertension: (6) Hyperlipidemia: (7) H/O aortic valve replacement: (8) Prolonged QT interval: (9) Pulmonary hypertension: Plan ASSESSMENT/PLAN: 1. Accelerated idioventricular rhythm: Had wide-complex ventricular rhythm overnight on 10/27/22, near 90 bpm, for approximately 33 minutes. This was while on flecainide and ciprofloxacin. Once converted, prolonged QT noted on ECG. Cipro and flecainide were discontinued. No further arrhythmia noted on telemetry. Would avoid medications that can prolong QT. Continue beta-jose. 2. Paroxysmal atrial fibrillation/flutter: Carries a history of both A. fib and flutter. Currently in sinus rhythm. Flecainide discontinued this hospital stay. Anticoagulation currently held due to heme positive stool and significant anemia, requiring 2 units of PRBC during this hospital stay. Can resume anticoagulation therapy when safe. Continue beta-jose for rate control strategy. Reports being asymptomatic with his arrhythmia in the past. 3. CAD: Nonobstructive when last evaluated in 2010 with cath. No angina. Antiplatelet/anticoagulation therapy has been held due to heme positive stool and significant anemia. Continue beta-jose. Statin therapy currently held but can resume when no contraindication. Consider high intensity statin therapy. 4. Hypertension: Blood pressure mostly mildly hypertensive today. If remains elevated, can adjust medications throughout the hospital stay. 5. Dyslipidemia: Typically on statin therapy but currently on hold per hospitalist service. 6. Aortic valve replacement: Top normal transvalvular gradient/velocity on today's echo. Mild perivalvular leak. Can monitor over time as an outpatient. SBE prophylaxis for dental procedures. 7. Prolonged QT: Avoid medications that can prolong QT. Cipro held. Flecainide discontinued. QT appears improved on today's ECG. 8. Hallucinations: As per primary hospitalist service. 9. Disposition: Cardiology will sign off at this time. Please call oncall vp informatics with any further questions or concerns. Plan of care was discussed with Dr. Carter of the primary hospitalist service. Follow-up with Dr. Matthew on discharge. Admission and Anticipated Discharge Date Admission Date: October 23, 2022 Subjective Patient seen earlier today. His was present at the bedside and believes that his mental status is somewhat improved compared to yesterday. He admits however that he continues to have hallucinations. He denies chest pain, shortness of breath, syncope, palpitations. Physical Exam Physical Exam: Gen.: No acute distress. Alert. HEENT: Anicteric sclera. Neck: No JVD. Cardiac: No ventricular heave. Regular. Normal S1-S2. 1/6 systolic murmur. No rub or gallops. Pulmonary: Clear to auscultation bilaterally without wheezes, rales, or rhonchi. Abdomen: Soft, nontender, nondistended, with normoactive bowel sounds. No bruits noted. Extremities: 2+ radial pulses bilaterally. 2+ posterior tibialis pulses bilaterally. No significant edema. No cyanosis. Results & Data ([facility]) Vital Signs (Past 12 Hours) Vital Signs Temp Pulse Pulse Resp BP Pulse Ox O2 Del Method 10/28/22 15:51 36.9 C 59 L 16 144/79 H 94 Room Air 10/28/22 13:40 56 L 10/28/22 12:15 Room Air 10/28/22 11:29 36.9 C 60 20 148/85 H 97 Room Air 10/28/22 08:01 36.5 C 53 L 16 165/89 H 98 Room Air Laboratory Results Laboratory Results - last 24 hr 10/27/22 18:03 Flecainide Pending Diagnostic Findings Telemetry personally reviewed: Sinus rhythm. No arrhythmia since yesterday visit. ECG personally reviewed 10/28/2022: Sinus bradycardia first-degree AV block [address]/T wave abnormality. Possible inferior infarct. QT improved from 10/27/2022. Echo 10/28/22: 1. Normal left ventricular size and systolic function. EF 55-60%. No regional wall motion abnormalities. Moderate concentric left ventricular hypertrophy. 2. Mildly dilated right ventricle with normal systolic function. 3. Severe biatrial dilation. 4. Bioprosthetic aortic valve with mild perivalvular leak. Top normal transvalvular gradient/velocity. 5. Mild mitral regurgitation. 6. Mild to moderate pulmonary hypertension. Estimated RVSP 45-50 mmHg. 7. Technically difficult study, enhanced with IV Definity. 8. Compared to prior study on 03/15/2022, AVR transvalvular velocity/gradient has increased. Medications Administered Current Inpatient Medications Acetaminophen (Acetaminophen 500 Mg Tab) 1,000 mg PO Q8H PRN PRN Reason: Pain or Fever Stop: 11/26/22 11:05 Last Admin: 10/28/22 15:51 Dose: 1,000 mg Al Hydrox/Mg Hydrox/Simethicone (Aluminum/Magnesium Susp 30 Ml Udc) 15 ml PO Q4H PRN PRN Reason: Dyspepsia Stop: 11/22/22 16:13 Bumetanide (Bumetanide 1 Mg Tab) 1 mg PO QPM [facility] Stop: 11/22/22 20:59 Last Admin: 10/27/22 21:18 Dose: 1 mg Calcitonin [place] (Calcitonin [place] Na 200 Iu/Ac 3.7 Ml Btl) 1 sprays NA DAILY [facility] Stop: 11/23/22 08:59 Last Admin: 10/28/22 08:19 Dose: 1 sprays Ciprofloxacin (Ciprofloxacin 500 Mg Tab) 500 mg PO BID [facility] Stop: 11/04/22 20:59 Last Admin: 10/26/22 19:58 Dose: 500 mg Duloxetine HCl (Duloxetine Hcl 30 Mg Cap) 30 mg PO DAILY [facility] Stop: 11/27/22 08:59 Last Admin: 10/28/22 08:17 Dose: 30 mg Hydralazine HCl (Hydralazine Hcl 20 Mg/Ml Vial) 10 mg IV Q8 PRN PRN Reason: sbp>185 or dbp>95 Stop: 11/24/22 10:38 Last Admin: 10/25/22 12:11 Dose: 10 mg Lidocaine (Lidocaine 5% 1 Patch) 1 patch TD QAM [facility] Stop: 11/24/22 08:59 Last Admin: 10/28/22 08:18 Dose: 1 patch Metoprolol Succinate (Metoprolol Succ 50mg Ext Rel Tab) 100 mg PO BID [facility] Stop: 11/22/22 20:59 Last Admin: 10/28/22 08:03 Dose: Not Given Miscellaneous (Remove Lidoderm Patch) 1 each N/A HS [facility] Stop: 11/23/22 20:59 Last Admin: 10/27/22 21:18 Dose: 1 each Nitrofurantoin Macrocrystals (Nitrofurantoin Monohydrate 100 Mg Cap) 100 mg PO BID [facility]; Protocol Stop: 11/01/22 08:59 Last Admin: 10/28/22 08:16 Dose: 100 mg Farxiga: Non- Formulary Patient's Own Med 1 each PO DAILY [facility] Stop: 11/25/22 08:59 Last Admin: 10/28/22 08:18 Dose: 1 tabs Pantoprazole Sodium (Pantoprazole 40 Mg Tab) 40 mg PO BID [facility] Stop: 11/23/22 20:59 Last Admin: 10/28/22 08:17 Dose: 40 mg Polyethylene Glycol (Polyethylene (Miralax) 17 Gm Pack) 17 gm PO DAILY PRN PRN Reason: Constipation Stop: 11/22/22 16:13 Potassium Chloride (Potassium Chloride 10 Meq Tabcr) 10 meq PO QPM [facility] Stop: 11/22/22 20:59 Last Admin: 10/27/22 21:25 Dose: 10 meq Simvastatin (Simvastatin 20 Mg Tab) 20 mg PO HS [facility] Stop: 11/22/22 20:59 Last Admin: 10/26/22 19:59 Dose: 20 mg Vitamin D (Cholecalciferol 1,000 Units 25 Mcg Tab) 1,000 units PO QAM [facility] Stop: 11/23/22 08:59 Last Admin: 10/28/22 08:17 Dose: 1,000 units PG Care Time/CCT Total # of Minutes Spent Total Time Spent with Patient: Total time spent is greater than 50% in coordination of care (as documented) at patient's floor/unit and/or counseling patient: Coding Level of Care Code 16053 SUB INP/OBS CARE 2/35MIN Diagnoses Accelerated idioventricular rhythm I44.2 CAD (coronary artery disease) I25.10 Atrial flutter, paroxysmal I48.92 Paroxysmal atrial fibrillation I48.0 Hypertension I10 Hyperlipidemia E78.5 H/O aortic valve replacement Z95.2 Prolonged QT interval R94.31 Pulmonary hypertension I27.20
--- NOTE | 2022-10-28 17:30 | Hospitalist Progress Note ---
Date of Service October 28, 2022 Assessment & Plan (1) Encephalopathy: Plan: - Suspect may be a combination of UTI and medication induced encephalopathy, as patient notes a correlation of visual, auditory hallucinations with the stopped buproprion and reduced duiloxitine, will eventually stop it also - His ammonia is 27, this rules out hepatic encephalopathy. - Head CT without hemorrhage, territorial infarct, or mass/midline shift. -persistent hallucinations, MRI shows encephalomalacia and gliosis reportedly chronic, maybe wonder if hallucinations are from chronic aileen changes but antipsychotics will afftect Qtc and will not use at this time as are not trou aly to him - Currently, patient is AAO x3, able to verbalize that he knows his hallucinations are not real. (2) Atrial fibrillation with rapid ventricular response: Plan: - cardioloigy stopped flecainide, metoprolol, and Xarelto. Xarelto will be held given suspected lower versus upper GI bleed. Pt developed arrythmia while on flecainde and cipro both stopped and Qtc imroved but this limits desire to use antipsychotics for hallucinations (3) GIB (gastrointestinal bleeding): Plan: - Patient without any obvious blood in stool or black, tarry stools however was heme positive in ED. - Hgb 13 in May, now 7.5 on admision -Improved to 10.2 after 2 units of PRBC, recheck hemoglobin on 10/25 10.1 - Does have iron deficiency anemia, iron on admission is 14, previously seen by heme/onc. - - May be either an upper or lower GI bleed with his history of cirrhosis and a possible bleed seen on EGD in 2019 presumed to be an AVM, also has had several colon polyps removed, family history of colon cancer in his mother. - Given his diagnosis of cirrhosis, he had had a recent EGD and colonoscopy last month, EGD unremarkable, colonoscopy significant for 3 noncancerous polyps removed. - Last Xarelto dose: 10/23 - protonix BID.. - 1g TXA ordered on 10/23 Hemoglobin remains stable, will likely restart his xarelto between 7 or 14 days from this event. 10/30/21 (4) Urinary tract infection: Plan: - enterococcus faecalis uti poa, metabolic encephalopathy associated with it cipro plus flecanide may have affected rhythm, will return to macrobid to complete 7 day course. (5) Lumbar compression fracture: Plan: - Several falls over the past few days. - Lumbar XR: There is an acute appearing compression deformity of the L1 vertebral body, new from prior exam in 2018. No radiographic evidence of significant retropulsion or involvement of posterior elements, however this is better evaluated by CT. - Imaging otherwise negative for acute fractures or other injury. - Lidocaine patches, calcitonin spray, home [place] continued for pain relief. - PT/OT to evaluate and treat. (6) Cirrhosis: Plan: - [place] to be alcohol related, patient has not drank in many years. - Has close follow-up with GI, recently had EGD witch did not reveal any varices, colonoscopy with several polyps removed. - Due for AFP, liver U/S December. - Tylenol 2 g maximum per day. - On admission: T bili 2.7, AST 43, ammonia 27. Creatinine 0.91, sodium 135, INR pending, 1.3 when last checked one year ago. (7) Depression: Plan: - Patient has history of depression, anxiety and irritability along with PTSD as he is a and served in [place]. He has been having increased flashbacks over the past several months. - Patient has recently had his Cymbalta increased from 30 to 60 mg and bupropion increased 150mg to 300 mg, onset of hallucinations occurred with the bupropion dose change. - Reduce Cymbalta, will eventually discontinue however hold his bupropion for now. - Hallucinations are both visual and auditory, they are nonviolent. Patient denies any suicidal homicidal ideation. (8) CAD (coronary artery disease): Plan: - Has a history of nonobstructive coronary artery disease with luminal irregularities noted in January 2011 and valvular heart disease with bioprosthetic AVR in January 2011. - Has been exercising without chest pain, palpitations, shortness of breath over the last several months, which remains unchanged today. - Echo February 2022: Left ventricular size, wall motion, systolic function. Mild LVH, EF 50 to 55%, well-seated prosthetic aortic valve, mild MR. - Hold baby aspirin due to concerns for GI bleed; otherwise continue metoprolol, Bumex, Farxiga, statin therapy. - Troponin is not trending remains in 20's x 3 patient without chest pain, palpitations, shortness of breath. (9) Gastroesophageal reflux disease: Plan: - Patient on Protonix for concern for UGI bleed as above. (10) Hyperlipidemia: Plan: - Continue statin therapy. (11) Hypertension: Plan: - Continue metoprolol. Plan SCDs DVT prophylaxis, no chemoprophylaxis due to concern for GI bleed. - Full code. Nohemi daughter [id number] Admission and Anticipated Discharge Date Admission Date: October 23, 2022 Subjective Patient seen earlier today. His was present at the bedside and believes that his mental status is near his baseline He admits however that he continues to have hallucinations, they are not particularly bothersome but are persistent. He denies chest pain, shortness of breath, syncope, palpitations. Review of Systems Review of Systems: Mild distress and fatigue no headache, no visual changes is having visual hallucinations however no speech or swallowing issues no chest pain, pressure or palpitations no shortness of breath, cough or wheezes no abdominal pain, nausea or vomiting, diarrhea or constipation no dysuria, hematuria or frequency no focal joint pain or swelling no back pain, CVA tenderness or radicular pain no bruising, bleeding or rashes no focal signs of weakness or numbness or altered sensation overall still very no complaints of anxiety or depression.. Physical Exam Physical Exam: The patient appeared stable Vital signs as documented. Lungs are clear to auscultation and appear unlabored Cardiac exam, Rhythm is regular.. No murmurs, rubs or gallops. Abdominal exam reveals normal bowel sounds, soft non tender, no masses Extremities are nonedematous and both pedal pulses are normal. Neurologic exam is alert and oriented, no focal loss of strength or sensation Skin is without bruises or rashes Psychologically is without concerns for anxiety or depression. Results & Data Results & Data ([facility]) Vital Signs (Past 12 Hours) Vital Signs Temp Pulse Pulse Resp BP Pulse Ox O2 Del Method 10/28/22 17:12 63 10/28/22 15:51 98.4 F 59 L 16 144/79 H 94 Room Air 10/28/22 13:40 56 L 10/28/22 12:15 Room Air 10/28/22 11:29 98.4 F 60 20 148/85 H 97 Room Air 10/28/22 08:01 97.7 F 53 L 16 165/89 H 98 Room Air PG Care Time/CCT Total # of Minutes Spent Total Time Spent with Patient: Total time spent is greater than 50% in coordination of care (as documented) at patient's floor/unit and/or counseling patient: Coding Level of Care Code 80349 SUB INP/OBS CARE 2/35MIN Diagnoses Encephalopathy G93.40 Atrial fibrillation with rapid ventricular response I48.91 GIB (gastrointestinal bleeding) K92.2 Urinary tract infection N39.0 Lumbar compression fracture S32.000A Cirrhosis K74.60 Depression F32.A CAD (coronary artery disease) I25.10 Gastroesophageal reflux disease K21.9 Hyperlipidemia E78.5 Hypertension I10
[2022-10-28] MEDS: POTASSIUM CHLORIDE 10 MEQ TABCR PO SCH (20:01)
[2022-10-28] MEDS: BUMETANIDE 1 MG TAB PO SCH (20:02)
[2022-10-28] MEDS: CELECOXIB 100 MG CAP PO SCH (20:03)
[2022-10-28] MEDS ORDERED: OLANZapine ZYDIS 5 MG ORALLY DIS. TAB PO SCH (21:00)
--- NOTE | 2022-10-28 21:54 | Electrocardiogram Report ---
Test Reason : Blood Pressure : / mmHG Vent. Rate : 090 BPM Atrial Rate : 089 BPM P-R Int : 000 ms QRS Dur : 212 ms QT Int : 578 ms P-R-T Axes : 000 -73 082 degrees QTc Int : 707 ms Accelerated Idioventricular rhythm Right bundle branch block Left anterior fascicular block Bifascicular block Abnormal ECG When compared with ECG of 23-OCT-2022 11:52, AIVR has replaced Sinus rhythm Right bundle branch block is now Present Confirmed by Miguelangel Stewart ([id number]) on 10/28/2022 9:54:16 PM Referred By: [facility] Confirmed By:Miguelangel Stewart
--- NOTE | 2022-10-28 21:55 | Electrocardiogram Report ---
Test Reason : Blood Pressure : / mmHG Vent. Rate : 063 BPM Atrial Rate : 063 BPM P-R Int : 304 ms QRS Dur : 132 ms QT Int : 504 ms P-R-T Axes : 000 047 124 degrees QTc Int : 515 ms Sinus rhythm with sinus arrhythmia with 1st degree A-V block Non-specific intra-ventricular conduction block Abnormal ECG When compared with ECG of 27-OCT-2022 00:58, Sinus rhythm has replaced Wide QRS rhythm Confirmed by Miguelangel Stewart ([id number]) on 10/28/2022 9:55:21 PM Referred By: [facility] Confirmed By:Miguelangel Stewart
--- NOTE | 2022-10-28 22:12 | Electrocardiogram Report ---
Test Reason : Blood Pressure : / mmHG Vent. Rate : 057 BPM Atrial Rate : 057 BPM P-R Int : 246 ms QRS Dur : 114 ms QT Int : 488 ms P-R-T Axes : 062 049 118 degrees QTc Int : 474 ms Sinus bradycardia with 1st degree A-V block Abnormal ECG When compared with ECG of 27-OCT-2022 01:51, QRS duration has decreased Confirmed by Miguelangel Stewart ([id number]) on 10/28/2022 10:12:00 PM Referred By: [facility] Confirmed By:Miguelangel Stewart
[2022-10-29] MEDS: ACETAMINOPHEN 500 MG TAB PO PRN ×2 (00:30→08:23)
[2022-10-29] MEDS ORDERED: traMADol HCL 50 MG TABLET PO ONE (03:29)
[2022-10-29] MEDS: CELECOXIB 100 MG CAP PO SCH (07:40)
[2022-10-29] MEDS: METOPROLOL SUCC 50MG EXT REL TAB PO SCH (07:41)
[2022-10-29] MEDS: NITROFURANTOIN MONOHYDRATE 100 MG CAP PO SCH (07:41)
[2022-10-29] MEDS: DULoxetine HCL 30 MG CAP PO SCH (07:42)
[2022-10-29] MEDS: PANTOprazole 40 MG TAB PO SCH (07:42)
[2022-10-29] MEDS: CHOLECALCIFEROL 1,000 UNITS 25 MCG TAB PO SCH (07:42)
[2022-10-29] MEDS: LIDOCAINE 5% 1 PATCH TD SCH (07:43)
[2022-10-29] MEDS: CALCITONIN SALMON NA 200 IU/AC 3.7 ML BTL SCH (07:43)
[2022-10-29] MEDS: FARXIGA PO SCH (07:43)
--- NOTE | 2022-10-29 14:11 | XRay Report ---
XR elbow LT min 3V routine CLINICAL HISTORY: left elbow pain COMPARISON STUDY: None. FINDINGS: Displacement of the anterior and posterior humeral fat pads consistent with an elbow effusi on. No definite fractures identified. No dislocation. Moderate osteoarthritis within the left elbow. Mild soft tissue swelling. IMPRESSION: 1. Left elbow effusion. This is nonspecific but could represent an underlying occult fracture if the patient has had recent trauma. 2. Diffuse soft tissue swelling. 3. Moderate osteoarthritis. ACT 112: Negative or not required by law. Electronically signed by: Singh Jennings M.D. 10/29/2022 2:08 PM
--- NOTE | 2022-10-29 17:31 | Discharge Summary ---
Date of Service October 29, 2022 Admission HPI Per Admitting Provider Marciano Vu is a 72-year-old male with a past medical history significant for alcohol cirrhosis, atrial fibrillation, CAD, hyperlipidemia, hypertension, CKD, secondary hyperparathyroidism, GERD, and BPH who is presenting today at the referral of his PCP due to confusion and falls at home. Patient reports that over the past couple weeks he has been hearing and seeing people in his home and interacting with him, although his has been telling him that people are not real. He is also had more falls over the past week, which is unusual for him. He is not complaining of any pain from the falls at the moment. He notes that the hallucinations started shortly after his bupropion dose was increased. Review of his chart reveals that his bupropion was increased from walking 50 mg daily to 20 mg daily on September 10 of this year. Other than the hallucinations and falls, patient has felt well over the past several weeks, he has had some fatigue, mild abdominal pain and has hemorrhoids that bleed on occasion, particularly after his colonoscopy 1 month ago, otherwise has not had any fever/chills, nausea, vomiting, persistent abdominal pain, black tarry stools or persistent bright red blood in or around his stools. Does have a history of cirrhosis which seems to be attributed to alcohol, patient has not consumed alcohol in several years. He follows with gastroenterology regularly for cirrhosis, recently had EGD and colonoscopy 1 month ago, negative for esophageal varices and had several colon polyps removed. He did have some postprocedure rectal bleeding which he attributes to doing Xarelto, resolved after several days. In the ED, his vital signs have been within normal limits and stable. He is still heme positive. Labs are notable for Hgb of 7.5, significantly decreased from 13.3 several months ago. Also w/ WBC 12, UA positive for nitrates, trace leukoesterase, 1030 WBCs, 1+ bacteria with 2030 epithelial cells. , T bili 2.7, AST 43, alk phos 175. ALT and ammonia within normal limits. Troponin 28.1, no electrolyte abnormalities, renal function at baseline. COVID-negative. Principal Diagnosis Metabolic encephalopathy secondary to urinary tract infection present on admission GI bleed with acute blood loss anemia requiring transfusion Atrial fibrillation with a [place] heart rhythm requiring cessation of flecainide Persistent nontroubling visual hallucinations, encephalomalacia seen on MRI of brain Discharge Exam The patient appeared stable Vital signs as documented. Lungs are clear to auscultation and appear unlabored Cardiac exam, irregular and rate controlled systolic ejection murmur heard Abdominal exam reveals normal bowel sounds, soft non tender, no masses Extremities are elbow tenderness not erythematous perhaps traumatic Persistent back discomfort from lumbar compression fracture, requiring frequent repositioning for need for home hospital bed Neurologic exam is alert and oriented, no focal loss of strength or sensation persistent hallucinations Skin is without bruises or rashes Psychologically is with some concerns for memory impairment Discharge Data Allergies Allergy/AdvReac Type Severity Reaction Status Date / Time amoxicillin Allergy Mild Rash Verified 10/10/22 14:07 Penicillins Allergy Mild RASH Verified 10/10/22 14:07 amlodipine AdvReac Mild COUGHING Verified 10/10/22 14:07 lisinopril AdvReac Mild COUGH Verified 10/10/22 14:07 Consultations 10/23/22 14:50 ED Decision to Admit Stat 10/23/22 16:14 Consult Gastroenterology Routine 10/27/22 02:13 Consult Cardiology Routine Ordered Studies 10/23/22 11:27 CT head/brain wo con Stat 10/23/22 11:29 CT cervical spine wo con Stat CT face [CT facial bones wo con] Stat 10/27/22 10:52 MRI Brain [MR brain wo con] Routine Hospital Course (1) Encephalopathy: - Suspect may be a combination of UTI and medication induced encephalopathy, as patient notes a correlation of visual, auditory hallucinations with the stopped buproprion and reduced duiloxitine, will eventually stop it also - His ammonia is 27, this rules out hepatic encephalopathy. - Head CT without hemorrhage, territorial infarct, or mass/midline shift. -persistent hallucinations, MRI shows encephalomalacia and gliosis reportedly chronic, maybe wonder if hallucinations are from chronic aileen changes but antipsychotics will afftect Qtc and will not use at this time as are not troubling to him - Currently, patient is AAO x3, able to verbalize that he knows his hallucinations are not real. (2) Atrial fibrillation with rapid ventricular response: - cardioloigy stopped flecainide, metoprolol, and Xarelto. Xarelto will be restarted on 02 November resume metoprolol at time of discharge Pt developed arrythmia while on flecainde and cipro both stopped and Qtc imroved but this limits desire to use antipsychotics for hallucinations (3) GIB (gastrointestinal bleeding): - Patient without any obvious blood in stool or black, tarry stools however was heme positive in ED. - Hgb 13 in May, now 7.5 on admision -Improved to 10.2 after 2 units of PRBC, recheck hemoglobin on 10/25 10.1 - Does have iron deficiency anemia, iron on admission is 14, previously seen by heme/onc. - - May be either an upper or lower GI bleed with his history of cirrhosis and a possible bleed seen on EGD in 2019 presumed to be an AVM, also has had several colon polyps removed, family history of colon cancer in his mother. - Given his diagnosis of cirrhosis, he had had a recent EGD and colonoscopy last month, EGD unremarkable, colonoscopy significant for 3 noncancerous polyps removed. Given chest exam and gases during his hospital stay - Hemoglobin remains stable, will likely restart his xarelto 11/02/2022 (4) Urinary tract infection: - enterococcus faecalis uti poa, metabolic encephalopathy associated with it cipro plus flecanide may have affected rhythm, antibiotics completed 7 day course. (5) Lumbar compression fracture: - Several falls over the past few days. Injured his elbow this was x-rayed prior to going home with effusion no displaced fractures seen - Lumbar XR: There is an acute appearing compression deformity of the L1 vertebral body, new from prior exam in 2018. No radiographic evidence of significant retropulsion or involvement of posterior elements, however this is better evaluated by CT. - Imaging otherwise negative for acute fractures or other injury. - Lidocaine patches, calcitonin spray, home [place] continued for pain relief. - PT/OT to evaluate and treat. (6) Cirrhosis: - [place] to be alcohol related, patient has not drank in many years. - Has close follow-up with GI, recently had EGD witch did not reveal any varices, colonoscopy with several polyps removed. - Due for AFP, liver U/S December. - Tylenol 2 g maximum per day. - On admission: T bili 2.7, AST 43, ammonia 27. Creatinine 0.91, sodium 135, INR pending, 1.3 when last checked one year ago. (7) Depression: - Patient has history of depression, anxiety and irritability along with PTSD as he is a and served in [place]. He has been having increased flashbacks over the past several months. - Patient has recently had his Cymbalta increased from 30 to 60 mg and bupropion increased 150mg to 300 mg, onset of hallucinations occurred with the bupropion dose change. - Reduce Cymbalta, will eventually discontinue however hold his bupropion for now. - Hallucinations are both visual and auditory, they are nonviolent. Patient denies any suicidal homicidal ideation. Some of the [employer]SPORT[employer] changes may be from his encephalomalacia and gliosis (8) CAD (coronary artery disease): - Has a history of nonobstructive coronary artery disease with luminal irregularities noted in January 2011 and valvular heart disease with bioprosthetic AVR in January 2011. - Has been exercising without chest pain, palpitations, shortness of breath over the last several months, which remains unchanged today. - Echo February 2022: Left ventricular size, wall motion, systolic function. Mild LVH, EF 50 to 55%, well-seated prosthetic aortic valve, mild MR. - Hold baby aspirin due to concerns for GI bleed; otherwise continue metoprolol, Bumex, Farxiga, statin therapy. - Troponin is not trending remains in 20's x 3 patient without chest pain, palpitations, shortness of breath. Elevation in troponin is from demand ischemia (9) Gastroesophageal reflux disease: - Patient on Protonix for concern for UGI bleed as above. (10) Hyperlipidemia: - Continue statin therapy. (11) Hypertension: - Continue metoprolol. Plan Nohemi daughter [phone] Total Time Total Time Spent Total Time Spent (In Minutes): It required greater than 30 minutes to prepare this patient for discharge Discharge Plan Discharge Items Patient Disposition: Home - Self-Care Reason For Visit: UGIB Discharge Diagnosis: confusion from urinary infection, bleeding in urine irregular heart beat affected by medication confusion from medication hallucinations Health Concerns: Because of your lumbar compression fracture frequent repositioning is needed when you lay in bed. A hospital bed prescription has been provided Activity: Resume your previous activity Non-emergency contact: Primary Care Provider and Pencils Washer Call non-emergency contact if: your symptoms worsen Follow-up/Referrals: Festus Matthew MD [Physician] - 12/06/22 11:00 am Kevin Amezcua MD [Primary Care Provider] - 10/31/22 10:50 am Diet: Regular Addtl Attending Provider Instructions: Please restart your Xarelto, on 11/02/22 Please have a follow up with your family doctor this week Please limit your antidepressants until you have a evaluation by your primary care Pending Studies at Discharge: No Stand-Alone Forms: My [facility], Smoking Cessation Medications and DC Order Prescriptions: New acetaminophen [Tylenol Extra Strength] 500 mg Tablet 1,000 mg PO Q8H PRN (Reason: fever or pain) Qty: 30 0RF lidocaine 5 % Adhesive Patch,Medicated 1 patch transdermal QAM Qty: 10 0RF duloxetine 30 mg Capsule,Delayed Release(Dr/Ec) 30 mg PO DAILY Qty: 30 0RF Continued aspirin [Adult Aspirin Regimen] 81 mg tablet,delayed release (DR/EC) 81 mg PO QAM cholecalciferol (vitamin D3) 1,000 unit tablet,chewable 1,000 units PO QAM bumetanide 1 mg tablet 1 mg PO QPM Qty: 90 3RF pantoprazole 40 mg tablet,delayed release (DR/EC) 40 mg PO QPM Qty: 90 3RF simvastatin [Zocor] 20 mg tablet 20 mg PO HS Qty: 90 3RF metoprolol succinate 100 mg tablet extended release 24 hr 100 mg PO BID Qty: 180 3RF potassium chloride 10 mEq capsule, extended release 10 meq PO QPM Qty: 90 3RF oxycodone-acetaminophen 7.5-325 mg tablet 1 tab PO Q6H PRN (Reason: pain) Qty: 120 0RF Xarelto 20 mg tablet 20 mg PO DAILY Rx Instructions: Take 1 tablet by mouth once daily Farxiga 10 mg tablet 10 mg PO DAILY Discontinued clindamycin HCl [Cleocin HCl] 300 mg capsule 600 mg PO UD PRN (Reason: dental work) Rx Instructions: WITH DENTAL WORK duloxetine 60 mg capsule,delayed release(DR/EC) 60 mg PO DAILY Qty: 30 5RF bupropion HCl 300 mg tablet extended release 24 hr 300 mg PO QAM Qty: 90 3RF flecainide 150 mg tablet 150 mg PO Q12 Rx Instructions: TAKE 1 TABLET BY MOUTH EVERY 12 HOURS Discharge Orders: Discharge Order (Routine); Ordered 10/29/22 Ordered By: Navi Carter Admission Data Admit Date/Time: 10/23/22 14:31 Attending Provider: Navi Carter Admit Provider: Omar Wilson Primary Care Provider: Kevin Amezcua Other Providers: Omar Wilson ; Bill Stapleton ; Miguelangel Stewart Other Interventions: Discharge Summary Assessment (RN) Last Done: 10/29/22 13:45 Coding Level of Care Code HOSP INP/OBS DISCH >30 MIN Diagnoses Encephalopathy G93.40 Atrial fibrillation with rapid ventricular response I48.91 GIB (gastrointestinal bleeding) K92.2 Urinary tract infection N39.0 Lumbar compression fracture S32.000A Cirrhosis K74.60 Depression F32.A CAD (coronary artery disease) I25.10 Gastroesophageal reflux disease K21.9 Hyperlipidemia E78.5 Hypertension I10
== END 2022-10-29 16:07 | disposition home or self-care (01) | DRG 377 ==
LOC: ED 10:57 → SUATTDRO 14:31 → EDINP 14:31 → 1E 10-24 14:09 → 2S 10-25 20:12